=== PATIENT | female | born 1930 | race Caucasian/White ===

== ENCOUNTER 2016-12-08 09:38 | Observation (INO) | payer MEDICARE, BC ==
[2016-12-08] MEDS ORDERED: NS 0.9% 1000 ML* 1,000 ML IV SCH (10:30)
[2016-12-08 10:58] LABS: Urine Bacteria Absent (Absent); Urine Bilirubin Negative (Negative); Urine Glucose Negative (Negative); Urine Nitrite Negative (Negative)
[2016-12-08 11:08] LABS: Hematocrit 40 % (35-47); Hemoglobin 13.8 g/dl (12.0-16.0); Mean Corpuscular HGB Conc 35 g/dl (31-36); Mean Corpuscular Hemoglobin 31 pg (27-31); Mean Corpuscular Volume 91 fL (80-97); Mean Platelet Volume 7 um3 (7.4-10.4); Red Blood Count 4.41 10^6/ul (4.0-5.4); Red Cell Distribution Width 13 % (10.5-15); White Blood Count 5.2 10^3/ul (3.5-10.8)
[2016-12-08 11:25] LABS: Albumin 4.3 g/dL (3.2-5.2); BUN/Creatinine Ratio 16.7 (8-20); C Reactive Protein 7.51 mg/L (< 5.00); Calcium 9.6 mg/dL (8.6-10.3); EGFR African American 122.8 (>60); EGFR Non-African American 95.5 (>60); Globulin 3.9 g/dL (2-4); Magnesium 1.9 mg/dL (1.9-2.7); Potassium 3.4 mmol/L (3.5-5.0); Total Bilirubin 0.6 mg/dL (0.2-1.0); Total Protein 8.2 g/dL (6.4-8.9)
--- NOTE | 2016-12-08 11:27 | RAD ---
Indication: Syncope. Single frontal view of the chest performed at 1048 hours was reviewed. Comparison is made with previous exam dated August 17, 2015. No mediastinal shift is noted. Heart is of normal size and configuration. Lung burris appear clear. IMPRESSION: NO ACTIVE CARDIOPULMONARY DISEASE IS NOTED.
[2016-12-08 11:30] LABS: Troponin I 0.06 ng/mL (<0.04)
[2016-12-08 11:57] LABS: TSH (Thyroid Stimulating Horm) 3.11 mcIU/mL (0.34-5.60)
[2016-12-08] MEDS ORDERED: Magnesium Sulfate 2 GM IV* 2 GM/50 ML BAG IVPB ONE (11:59)
[2016-12-08] MEDS ORDERED: Potassium Chlor TAB* 20 MEQ TAB.ER PO ONE (12:00)
[2016-12-08] MEDS ORDERED: Amiodarone TAB* 200 MG PO ONE ×2 (12:00→16:19)
[2016-12-08] MEDS ORDERED: Metoprolol Tartrate IV* 1 MG/ML 5 ML VIAL IV ONE ×2 (12:01→13:33)
[2016-12-08] MEDS ORDERED: Metoprolol Tartrate IV* 1 MG/ML 5 ML VIAL IV PRN ×2 (13:16→13:25)
[2016-12-08] MEDS ORDERED: Apixaban* 2.5 MG TAB PO SCH (13:22)
[2016-12-08] MEDS ORDERED: Acetaminophen TAB* 325 MG PO PRN (13:28)
[2016-12-08] MEDS ORDERED: Midazolam* 1 MG/ML 5 ML VIAL (5 MG) ONE (14:38)
[2016-12-08] MEDS ORDERED: fentaNYL* 50 MCG/ML 2 ML VIAL (100 MCG VIAL) ONE (14:38)
[2016-12-08] MEDS ORDERED: Naloxone* 0.4 MG/ML 1 ML VIAL ONE (14:38)
[2016-12-08] MEDS ORDERED: Flumazenil* 0.1 MG/ML 5 ML MDV ONE (14:39)
[2016-12-08] MEDS ORDERED: Metoprolol Tartrate IV* 1 MG/ML 5 ML VIAL ONE (14:54)
--- NOTE | 2016-12-08 16:28 | PN ---
Hospitalist Progress Note Talked with Dr Gordon after Cardioversion, patient back in Sinus bradycardia. Metoprolol stopped, Amiodarone should be increased to 200mg daily for the next few days. Eliquis dose given late, next dose scheduled for 0000 on 12/09. Resume BID dosing after that. K+ 20meq TID started to maintain potassium level. Heart Healthy diet no caffeine started. Echocardiogram scheduled.
--- NOTE | 2016-12-08 17:17 | HP ---
CC: Dr. Odom; Rober Jon MD * HISTORY AND PHYSICAL: DATE OF ADMISSION: 12/08/16 PRIMARY CARE DOCTOR: Dr. Odom. ATTENDING PHYSICIAN WHILE IN THE HOSPITAL: Federica Johnson DO * (DICTATED BY JAMAR HANCOCK) CHIEF COMPLAINT: Syncope this morning. HISTORY OF PRESENT ILLNESS: Ms. Brown is an 85-year-old female with past medical history significant for paroxysmal AFib for the last 8 to 9 years, past history of hypertension and hyponatremia who presents today after last night she felt like her heart rate about doubled and she was having a palpitation sensation, which was consistent with previous episodes of AFib. Patient decided she would give a chance to convert back as it had previously without intervention. Patient went to bed around midnight and woke up in the middle of the night to used the restroom as she usually does and felt dizzy. Patient got up later again and got up out of bed and was able to walk for a significant distance, but while she was in the bathroom, she fell down. Patient remembers falling and denies any loss of consciousness or any trauma. Patient's niece was there at the time. She did not witness the fall, but she heard it and denies any sounds consistent with her having hit her head. Patient was, according to the niece, unresponsive for a while, but the patient denies any loss of consciousness again and was able to get back up, but still felt dizzy. Patient denies chest pain or shortness of breath. Patient denies any recent illnesses or sick contacts. Patient denies any decrease in her urine output or fluid intake. Patient takes amiodarone 100 mg p.o. daily and Eliquis 2.5 mg b.i.d. for her AFib, rhythm control and anticoagulation. Patient states that she had some decrease in exercise tolerance. The patient mainly attributes this to her worsening osteoarthritis in her left hip. The patient states that her left leg often swells up. Denies any swelling in the left leg or any redness of the lower extremities or pain. The patient states she has lost about 5 pounds recently. Denies any easy bruising or generalized fatigue. The patient states that she has always had trouble breathing while lying flat and this has not gotten worse and that she gets up to urinate about 2 times at night. Patient states she has not taken any of her medications this morning. Patient states she drinks on a normal day about 4 ounces of juice, 2 cups of half-caff coffee and 1 Boost every day. Patient denies drinking water due to a past history of hyponatremia. Patient denies any history of heart attacks or strokes. Patient took none of her home medications today. PAST MEDICAL HISTORY: Paroxysmal AFib, anxiety, and a previous history of hypertension, hypothyroidism and hyponatremia, osteoarthritis. PAST SURGICAL HISTORY: Cataract removal and appendectomy. MEDICATIONS: 1. Sertraline 50 mg p.o. daily. 2. Zyrtec 10 mg p.o. daily. 3. Ascorbic acid 500 mg p.o. daily. 4. Eliquis 2.5 mg b.i.d. 5. Amiodarone 100 mg p.o. daily. 6. Tylenol 500 mg q.6 hours. ALLERGIES: Patient is allergic to CODEINE and PENICILLIN. FAMILY HISTORY: Patient's brother had CHF. Patient's sister had lymphoma. Patient's mother had lung cancer and patient's grandmother had oral cancer. SOCIAL HISTORY: Patient smoked briefly 60 years ago. Patient drinks alcohol rarely. Patient has never tried any illicit drugs. 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 Patient was 10 years and is and has no children. REVIEW OF SYSTEMS: Patient denies fevers, chills, nausea, vomiting, abdominal pain, constipation, diarrhea, change in urine, hematuria, dysuria, cloudy urine , weakness, numbness or tingling of hands or feet, change in her vision, blood in her stool or any new rashes. PHYSICAL EXAMINATION GENERAL: Patient is an 85-year-old female who appears stated age, who is sitting in no acute distress on the ED stretcher. Patient appears to be moderately anxious. VITAL SIGNS: Blood pressure 134/86, heart rate 117, patient's heart rate frequently goes up to above 140s during this interview, respiratory rate 24, oxygen saturation 100% on room air, temperature 97. HEENT: Head, normocephalic, atraumatic. Sclerae anicteric. Pharynx nonerythematous. Mucous membranes moist. NECK: No carotid bruits auscultated. No JVD. No lymphadenopathy. Supple, nontender. RESPIRATORY: Clear to auscultation bilaterally. No wheezes, rales or rhonchi. Good air exchange bilaterally. HEART: Tachycardic, irregularly irregular. Radial pulses 2+ bilaterally. Posterior tibialis and dorsalis pedis pulses 1+ bilaterally. No edema noted in the lower extremities. ABDOMEN: Bowel sounds present and normoactive in all 4 quadrants. Nondistended , nontender to palpation. No hepatosplenomegaly. No abdominal bruits are auscultated. GENITOURINARY: Patient has slight suprapubic tenderness. No CVA tenderness. NEUROLOGIC: Cranial nerves II through XII intact. Moisture Meter Reader strength intact. Finger- to-nose performed without difficulty. SKIN: Patient has significant seborrheic keratoses all over her body. No other rashes noted. LABORATORY DATA: White blood cell count 5.2, hemoglobin 13.8, hematocrit 40, platelets 310,000. INR of 1.07. APTT 33.5. Sodium 134, potassium 3.4, chloride 97, carbon dioxide 31, anion gap 6, BUN 10, creatinine 0.6, glucose 117. Lactic acid 0.8. Troponin 0.06. CRP is 7.51. BNP is 338. TSH 3.31. Urine clear, blood +1, white blood cells +1, everything else negative. DIAGNOSTIC IMAGING: Electrocardiogram shows an irregularly irregular rhythm, rate of 120, no P waves appreciable but consistent with atrial fibrillation. No ST segment changes noted, consistent with previous exam when patient was in AFib. Chest x-ray read as no acute cardiopulmonary process. IMPRESSION: Patient is an 85-year-old female in relatively good health who passed out this morning due to recurrence of her paroxysmal atrial fibrillation , with the pulse rate up to 140. We will admit to telemetry overnight for rate control and possible cardioversion per Cardiology. Paroxysmal atrial fibrillation. Patient has atrial fibrillation with the pulse rates up to the 140s despite 5 mg metoprolol given in the emergency department for rate control. We will repeat one dose of 5 mg metoprolol IV and we will give a standing order for metoprolol q.6 hours for a heart rate above 110. Cardiology consulted. We will continue the patient's amiodarone, which they received in the emergency department and Cardiology will assess for cardioversion. The patient will be n.p.o. until that determination is made. Patient will be continued on home dose of Eliquis for anticoagulation. We will reorder CBC and BMP in the morning. We will order hemoglobin A1c and lipid profile for coronary artery disease risk. We will continue patient's home dose of amiodarone per Cardiology. Non-ST elevation myocardial infarction: Most likely represents demand ischemia. We will trend troponins and assess for cardiovascular risk factors. History of hypertension: Patient is normotensive at this time. We will monitor for hypotension from drugs designed for rhythm control. Osteoarthritis of the left hip: Tylenol 650 mg q.6 hours ordered for pain control. Patient is not eligible for other non-opiate medications due to cardiovascular risk factors and anticoagulation. Anxiety: Continue patient's home dose of sertraline. FEN: Patient is n.p.o. pending heater engineer helper consult. Patient will be started on 100 mL an hour of normal saline. We will continue to supplement potassium as needed. DVT prophylaxis: Patient is already fully anticoagulated on Eliquis. Code status: Full code. Patient's healthcare proxy is her niece, Vonnie Kramer. Disposition: Patient is admitted to telemetry observation. TIME SPENT: Approximately 60 minutes were spent on this admission, 30 minutes of which was spent [id number] with the patient obtaining history and physical. The plan has been discussed with my attending Dr. Federica Johnson and Dr. Solitario Gordon, heater engineer helper and they are in agreement. JAMAR HANCOCK [id number]/[facility] #: [id number] [place]
[2016-12-08] MEDS: Sertraline* 50 MG TAB PO SCH (17:30)
[2016-12-08] MEDS: NS 0.9% 1000 ML* 1,000 ML IV SCH (17:30)
--- NOTE | 2016-12-08 17:35 | ED ---
Valdemar Gonsalves Benjamin, scribed for Rock Olsen MD on 12/08/16 at 1153 . Syncope/Near Syncope - HPI Summary HPI Summary: 85yo female with hx of afib/aflutter reports having another afib episode yesterday evening around 530pm. Pt reports not having afib episode in a while. Pt also felt lightheaded and dizzy this morning and fell. Denies any injuries, denying any head, neck pain, CP, or SOB. Pt does have existing hip pain from arthritis. Pt takes amiodarone and blood thinner. Didnt take her amiodarone dose today as she takes them in the evening. Pt is feeling better now. - History Of Current Complaint Chief Complaint: EDSyncope Time Seen by Provider: 12/08/16 11:39 Hx Obtained From: Patient, Family/Welding [employer] - daughter Onset/Duration: Sudden Onset, Lasting Minutes, Resolved Timing: Intermittent Episode Lasting - minutes Context: Witnessed - by daughter Activity At Onset: At Rest Associated Head Trauma: No Aggravating Factor(s): Nothing Alleviating Factor(s): Spontaneous Resolution Associated Signs And Symptoms: Dizzy, Lightheadedness, Palpitations - afib since yesterday - Allergies/Home Medications Allergies/Adverse Reactions: Allergies Allergy/AdvReac Type Severity Reaction Status Date / Time Codeine Allergy Nausea Verified 12/08/16 10:29 Penicillins [PCN] Allergy Unknown Verified 12/08/16 10:30 Reaction Details PMH/Surg Hx/FS Hx/Imm Hx Endocrine/Hematology History: Reports: Hx Diabetes - BORDERLINE, Hx Thyroid Disease - Hx - no treatment at this time Cardiovascular History: Reports: Hx Coronary Artery Disease, Hx Hypercholesterolemia, Hx Hypertension, Hx Syncope - possibly in the past, this admission, Other Cardiovascular Problems/Disorders - "slight build up of plaque in carotid artery" Denies: Hx Auto Implanted Cardiovert Defib, Hx Cardiac Arrest, Hx Deep Vein Thrombosis, Hx Pacemaker/ICD Respiratory History: Reports: Hx Pneumonia GI History: Reports: Other GI Disorders - positive blood in stool pt reports she needs a colonoscopy Musculoskeletal History: Reports: Hx Arthritis - hands and hip Denies: Hx Back Problems Sensory History: Reports: Hx Contacts or Glasses Denies: Hx Cataracts - bilateral removal, Hx Hearing Aid, Hx Hearing Problem Opthamlomology History: Reports: Hx Contacts or Glasses Denies: Hx Cataracts - bilateral removal Psychiatric History: Reports: Hx Anxiety - Surgical History Surgery Procedure, Year, and Place: appendectomy. bilateral cataract removal Hx Anesthesia Reactions: No Infectious Disease History: No Infectious Disease History: Denies: Traveled Outside the [place] in Last 30 Days - Family History Known Family History: Positive: Cardiac Disease - CHF - Social History Occupation: Retired Lives: With Family Alcohol Use: Occasionally Substance Use Type: Reports: None Hx Tobacco Use: No Smoking Status (MU): Former Smoker Type: Cigarettes Have You Smoked in the Last Year: No Review of Systems Constitutional: Negative Eyes: Negative ENT: Negative Positive: Palpitations - afib. Negative: Chest Pain Respiratory: Negative Negative: Shortness Of Breath Gastrointestinal: Negative Negative: Abdominal Pain, Vomiting, Nausea Genitourinary: Negative Positive: no symptoms reported Positive: Arthralgia - chronic hip pain Skin: Negative Neurological: Other - dizziness Positive: Weakness, Syncope Psychological: Normal All Other Systems Reviewed And Are Negative: Yes Physical Exam Triage Information Reviewed: Yes Vital Signs On Initial Exam: Initial Vitals Temp Pulse Resp BP Pulse Ox 97.0 F 121 16 165/107 99 12/08/16 10:24 12/08/16 10:24 12/08/16 10:24 12/08/16 10:24 12/08/16 10:24 Vital Signs Reviewed: Yes Appearance: Positive: Well-Appearing, No Pain Distress - no acute distress, Well -Nourished Skin: Positive: Warm, Skin Color Reflects Adequate Perfusion, Dry Head/Face: Positive: Normal Head/Face Inspection Eyes: Positive: EOMI, POP ENT: Positive: Normal ENT inspection, Hearing grossly normal Neck: Positive: Supple, Nontender Respiratory/Lung Sounds: Positive: Clear to Auscultation, Breath Sounds Present Cardiovascular: Positive: Pulses are Symmetrical in both Upper and Lower Extremities, IRR, Tachycardia Abdomen Description: Positive: Nontender, Soft Bowel Sounds: Positive: Present Musculoskeletal: Positive: Strength/ROM Intact - hip in full rom, no tenderness. Negative: Edema Left, Edema Right Neurological: Positive: Sensory/Motor Intact, Alert, Oriented to Person Place, Time. Negative: Focal Deficit @ Psychiatric: Positive: Affect/Mood Appropriate - [place] Coma Scale Coma Scale Total: 15 Diagnostics - Vital Signs Vital Signs Temp Pulse Resp BP Pulse Ox 12/08/16 10:24 97.0 F 121 16 165/107 99 - Laboratory Lab Results: Lab Results 12/08/16 12/08/16 12/08/16 Range/Units 10:40 10:57 10:57 WBC (3.5-10.8) 10^3/ul RBC (4.0-5.4) 10^6/ul Hgb (12.0-16.0) g/dl Hct (35-47) % MCV (80-97) fL MCH (27-31) pg MCHC (31-36) g/dl RDW (10.5-15) % Plt Count (150-450) 10^3/ul MPV (7.4-10.4) um3 Neut % (Auto) (38-83) % Lymph % (Auto) (25-47) % [place] % (Auto) (1-9) % Eos % (Auto) (0-6) % Baso % (Auto) (0-2) % Absolute Neuts (auto) (1.5-7.7) 10^3/ul Absolute Lymphs (auto) (1.0-4.8) 10^3/ul Absolute Monos (auto) (0-0.8) 10^3/ul Absolute Eos (auto) (0-0.6) 10^3/ul Absolute Basos (auto) (0-0.2) 10^3/ul Absolute Nucleated RBC 10^3/ul Nucleated RBC % INR (Anticoag Therapy) 1.07 (0.89-1.11) APTT 33.5 (26.0-36.3) seconds Sodium (133-145) mmol/L Potassium (3.5-5.0) mmol/L Chloride (101-111) mmol/L Carbon Dioxide (22-32) mmol/L Anion Gap (2-11) mmol/L BUN (6-24) mg/dL Creatinine (0.51-0.95) mg/dL Est GFR ( Amer) (>60) Est GFR (Non-Af Amer) (>60) BUN/Creatinine Ratio (8-20) Glucose (70-100) mg/dL Lactic Acid (0.5-2.0) mmol/L Calcium (8.6-10.3) mg/dL Magnesium (1.9-2.7) mg/dL Total Bilirubin (0.2-1.0) mg/dL AST (13-39) U/L ALT (7-52) U/L Alkaline Phosphatase (34-104) U/L Total Creatine Kinase (10-223) U/L CK-MB (CK-2) (0.6-6.3) ng/mL Troponin I (<0.04) ng/mL C-Reactive Protein (< 5.00) mg/L B-Natriuretic Peptide 338 H ( - 100) pg/mL Total Protein (6.4-8.9) g/dL Albumin (3.2-5.2) g/dL Globulin (2-4) g/dL Albumin/Globulin Ratio (1-3) Lipase (11.0-82.0) U/L TSH Urine Color Straw Urine Appearance Clear Urine pH 8.0 (5-9) Ur Specific [place] 1.005 L (1.010-1.030) Urine Protein Negative (Negative) Urine Ketones Negative (Negative) Urine Blood 1+ H (Negative) Urine Nitrate Negative (Negative) Urine Bilirubin Negative (Negative) Urine Urobilinogen Negative (Negative) Ur Leukocyte Esterase Negative (Negative) Urine WBC (Auto) Absent (Absent) Urine RBC (Auto) 1+(3-5/hpf) H (Absent) Urine Bacteria Absent (Absent) Urine Glucose Negative (Negative) 12/08/16 12/08/16 12/08/16 Range/Units 10:57 10:57 10:57 WBC 5.2 (3.5-10.8) 10^3/ul RBC 4.41 (4.0-5.4) 10^6/ul Hgb 13.8 (12.0-16.0) g/dl Hct 40 (35-47) % MCV 91 (80-97) fL MCH 31 (27-31) pg MCHC 35 (31-36) g/dl RDW 13 (10.5-15) % Plt Count 310 (150-450) 10^3/ul MPV 7 L (7.4-10.4) um3 Neut % (Auto) 72.7 (38-83) % Lymph % (Auto) 14.6 L (25-47) % [place] % (Auto) 10.7 H (1-9) % Eos % (Auto) 0.6 (0-6) % Baso % (Auto) 1.4 (0-2) % Absolute Neuts (auto) 3.8 (1.5-7.7) 10^3/ul Absolute Lymphs (auto) 0.8 L (1.0-4.8) 10^3/ul Absolute Monos (auto) 0.6 (0-0.8) 10^3/ul Absolute Eos (auto) 0 (0-0.6) 10^3/ul Absolute Basos (auto) 0.1 (0-0.2) 10^3/ul Absolute Nucleated RBC 0.01 10^3/ul Nucleated RBC % 0.2 INR (Anticoag Therapy) (0.89-1.11) APTT (26.0-36.3) seconds Sodium 134 (133-145) mmol/L Potassium 3.4 L (3.5-5.0) mmol/L Chloride 97 L (101-111) mmol/L Carbon Dioxide 31 (22-32) mmol/L Anion Gap 6 (2-11) mmol/L BUN 10 (6-24) mg/dL Creatinine 0.60 (0.51-0.95) mg/dL Est GFR ( Amer) 122.8 (>60) Est GFR (Non-Af Amer) 95.5 (>60) BUN/Creatinine Ratio 16.7 (8-20) Glucose 117 H (70-100) mg/dL Lactic Acid 0.8 (0.5-2.0) mmol/L Calcium 9.6 (8.6-10.3) mg/dL Magnesium 1.9 (1.9-2.7) mg/dL Total Bilirubin 0.60 (0.2-1.0) mg/dL AST 19 (13-39) U/L ALT 12 (7-52) U/L Alkaline Phosphatase 83 (34-104) U/L Total Creatine Kinase 48 (10-223) U/L CK-MB (CK-2) 2.9 (0.6-6.3) ng/mL Troponin I 0.06 H* (<0.04) ng/mL C-Reactive Protein 7.51 H (< 5.00) mg/L B-Natriuretic Peptide ( - 100) pg/mL Total Protein 8.2 (6.4-8.9) g/dL Albumin 4.3 (3.2-5.2) g/dL Globulin 3.9 (2-4) g/dL Albumin/Globulin Ratio 1.1 (1-3) Lipase 43 (11.0-82.0) U/L TSH Pending Urine Color Urine Appearance Urine pH (5-9) Ur Specific Harmon (1.010-1.030) Urine Protein (Negative) Urine Ketones (Negative) Urine Blood (Negative) Urine Nitrate (Negative) Urine Bilirubin (Negative) Urine Urobilinogen (Negative) Ur Leukocyte Esterase (Negative) Urine WBC (Auto) (Absent) Urine RBC (Auto) (Absent) Urine Bacteria (Absent) Urine Glucose (Negative) Result Diagrams: 12/08/16 10:57 12/08/16 10:57 Lab Statement: Any lab studies that have been ordered have been reviewed, and results considered in the medical decision making process. - EKG 1054. Cardiac Rate: Tachycardia - 120bpm EKG Rhythm: Atrial Fibrillation ST Segment: : Normal - ST depression in inferior leads EKG Interpretation: RBBB EKG Comparison: No Significant Change - similar to her EKG at 08/17/15. Course/Dx Course Of Treatment: Reviewed pts medication and allergy lists. High blood pressure noted. Discussed with Dr. Johnson (hospitalist) at 11:56. ADMIT HOSPITALIST. NO CRITICAL CARE TIME. - Diagnoses Provider Diagnoses: Syncope, Rapid atrial fibrillation Discharge - Discharge Plan Condition: Stable Disposition: ADMITTED TO [facility] documentation as recorded by the Valdemar johnson Benjamin accurately reflects the service I personally performed and the decisions made by me, Rock Olsen MD.
[2016-12-08] MEDS: Potassium Chlor TAB* 20 MEQ TAB.ER PO SCH ×2 (17:58→21:32)
[2016-12-08] MEDS ORDERED: Amiodarone TAB* 200 MG PO SCH (18:00)
--- NOTE | 2016-12-08 18:06 | CONS ---
CC: Dr. Galeano CARDIOLOGY CONSULTATION: DATE OF CONSULTATION: 12/08/16 PATIENT OF: Dr. Galeano. REASON FOR EVALUATION: AFib. HISTORY OF PRESENT ILLNESS: This is a very pleasant 85-year-old woman who has a longstanding histor y of paroxysmal atrial fibrillation, hypertension. She said that she has had multiple episodes over the last 8 or 10 years of AFib, several of which converted spontaneously. She did require a cardio version in August 2015. At that time, had a BRENDA-guided cardioversion, was started on anticoagulation. She also was on amiodarone 100 mg a day at that time. She was doing fairly well, living with her n iece and driving. She is limited by arthritis but has had no chest pain or palpitations until last night. She said that she was sitting watching television and noticed that her heart started racing. There was no associated chest pain, syncope or near syncope. She said that she felt the need to u rinate several times over the course of the evening. She went about 3 times. On the third time ear ly this morning, she went to the bathroom and felt a little lightheaded when she got up out of the b athroom to go back to bed, she apparently collapsed to the floor briefly and her niece decided to ca ll 911. She was brought in. She was found to be in atrial fibrillation with a rapid ventricular re sponse in the 130s to 140s. She said that she is aware of her heart beating quickly now but has no shortness of breath, chest pain, or lightheadedness. She has had no previous MIs or CVAs. Accordin g to her, she has a history of hypertension, paroxysmal atrial fibrillation, and borderline glucose. An old report from 08/17/16 suggested that she also had diabetes and dyslipidemia. PAST MEDICAL HISTORY: Also includes osteoarthritis. She denies tobacco use. She has a history of a nose fracture. PAST SURGICAL HISTORY: Includes appendectomy many years ago. MEDICATIONS: Her current medications include: 1. Amiodarone 100 mg a day. 2. Benicar 20 mg one half tablet a day. 3. Nifedipine 30 mg a day. 4. Aspirin 81 mg a day. 5. Zyrtec 10 mg a day. 6. Naprosyn p.r.n. 7. Eliquis 2.5 mg b.i.d. 8. Sertraline 50 mg a day. 9. Acetaminophen 500 mg p.o. q.6 p.r.n. 10. Multivitamin with minerals 1 a day. ALLERGIES: Include DUST and PERFUME but no drug allergies. SOCIAL HISTORY: She reports rare alcohol use and drinks 2 cups of half caffeinated coffee a day. S he lives with her niece. She was , but her has since . She has no children. H er brother of CHF at 89. She has a sister. 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 REVIEW OF SYSTEMS: Times 10 was negative except as above. PHYSICAL EXAMINATION: On physical exam, she is a well-developed, well-nourished female, in no appar ent distress. Blood pressure 147/100, heart rate of 129 and irregular, O2 sat is 99% on room air. No significant JVD. Carotids are 2+. Cardiac Exam: S1, S2, tachycardic with a 1-2/6 holosystolic m urmur at the left lower sternal border. Chest was clear. No CVAT. Abdomen: Bowel sounds are pres ent. Nontender. Femoral pulses intact without bruits. Distal pulses intact. No edema. Motor stre ngth is 5/5 bilaterally. Deep tendon reflexes 2/4. Alert and oriented x3. LABORATORY DATA/DIAGNOSTIC STUDIES: Laboratories include white count of 5.2, hemoglobin of 13.8, he matocrit of 40, and platelet count of 310,000. Sodium 134, potassium low at 3.4, chloride 97, BUN o f 10, creatinine of 0.6, glucose of 117. Troponin minimally elevated at 0.06. CRP elevated at 7.51. BNP elevated at 338. Cholesterol 221, LDL of 139, HDL of 64. TSH of 3.11. Chest x-ray, no active cardiopulmonary disease. EKG appears to be atrial fib or atrial flutter with a rapid ventricular response in the 120s, right bundle-branch block, and nonspecific ST-T changes, similar to previous EKG on 08/17/15 when she was in atrial fib or atrial flutter with a rapid ventri cular response. IMPRESSION: My impression is that Mrs. Brown has recurrent paroxysmal atrial arrhythmias, history o f hypertension, borderline diabetes, elevated cholesterol, and minimally elevated troponin in the se tting of a relatively low potassium. I did discuss her options with her and for the time being, I have recommended the following. Since she is already anticoagulated and has not had anything to eat since 8 p.m. last night, I sugge sted that we proceed with cardioversion. We would use IV Lopressor 5 mg IV now and p.r.n. to try to control her rate. We would replace her potassium as we are doing. We will follow serial troponins and EKGs. We will consider obtaining a repeat echo to reassess her LV function. The minimal elevation in troponin may be related to the tachycardia and demand ischemia. We will de monik further evaluation for ischemic heart disease until we see her clinical course and the trend of her troponins. She is to follow up with Dr. Galeano as an outpatient. I asked her to discontinue caffeine use. We will temporarily increase amiodarone to 200 mg a day. Consider adding a low-dose beta-ariela for rate control. The etiology of her syncope is unclear. She may benefit from an event monitor to see if she has tachybrady syndrome or perhaps pauses when s he goes in and out of atrial fibrillation. [id number]/[facility] #: [id number]
[2016-12-09] MEDS ORDERED: Apixaban* 2.5 MG TAB PO ONE
[2016-12-09] MEDS: NS 0.9% 1000 ML* 1,000 ML IV SCH (04:45)
[2016-12-09 05:24] LABS: Hematocrit 31 % (35-47); Hemoglobin 10.7 g/dl (12.0-16.0); Mean Corpuscular HGB Conc 35 g/dl (31-36); Mean Corpuscular Hemoglobin 31 pg (27-31); Mean Corpuscular Volume 90 fL (80-97); Mean Platelet Volume 8 um3 (7.4-10.4); Red Blood Count 3.45 10^6/ul (4.0-5.4); Red Cell Distribution Width 13 % (10.5-15); White Blood Count 6.3 10^3/ul (3.5-10.8)
[2016-12-09 05:32] LABS: BUN/Creatinine Ratio 24.1 (8-20); EGFR African American 127.7 (>60); EGFR Non-African American 99.3 (>60)
[2016-12-09] MEDS: Potassium Chlor TAB* 20 MEQ TAB.ER PO SCH ×2 (08:47→14:04)
[2016-12-09] MEDS: Sertraline* 50 MG TAB PO SCH (08:47)
[2016-12-09] MEDS ORDERED: Apixaban* 2.5 MG TAB PO SCH (09:00)
[2016-12-09] MEDS ORDERED: Amiodarone TAB* 200 MG PO SCH (09:00)
[2016-12-09] MEDS ORDERED: Influenza VAC *QUAD* 2017-18* 0.5 ML SYRINGE IM ONE (09:00)
[2016-12-09] MEDS ORDERED: Cetirizine* 10 MG TAB PO SCH (09:00)
--- NOTE | 2016-12-09 11:37 | ECHO ---
Patient: SOCRATES PAREDES [facility] Rec#: [id number] : 1930 Date: 12/09/2016 Age: 85y Height: 165.1 cm / 65.0 in Weight: 58.06 kg / 128.0 lbs Sex: F BSA: 1.64 Room#: 433 Admit Date#: 12/08/2016 Type: Inpatient Referring: Rock Hernandez MD Reading: Edis Varela MD Engineer Station Mainline: Adrienne Chowdary,CHARUCS,RDMS CC: Franny Odom MD CC: Jeremie Galeano MD Transthoracic Echocardiogram Indication: AFIB BP: 175/76 HR: 66 Rhythm: NSR Findings History: AFIB, HTN, HLD Technical Comments: The study quality is good. Completed 1100 Left Ventricle: The left ventricular chamber size is normal. There is a prominent septal knuckle. The estimated ejection fraction is 55-60%. There is no consistent Doppler evidence of clinically significant diastolic dysfunction. Left Atrium: The left atrium is moderately dilated. Right Ventricle: The right ventricular chamber size and systolic function are within normal limits. Right Atrium: The right atrium is mildly dilated. Aortic Valve: The aortic valve is trileaflet. The aortic valve leaflets are mildly thickened. Systolic excursion of the aortic valve is normal. There is a trace of aortic regurgitation. There is no evidence of aortic stenosis. Mitral Valve: There is mitral annular calcification. The mitral valve leaflets are mildly thickened. There is mild to moderate mitral regurgitation. There is no evidence of mitral stenosis. Tricuspid Valve: The tricuspid valve leaflets are normal. There is trace tricuspid regurgitation. No pulmonary hypertension is noted. Pulmonic Valve: There is no evidence of pulmonic valve thickening. There is a trace pulmonic regurgitation. Pericardium: There is no significant pericardial effusion. Aorta: The aortic root appears normal. There is no dilatation of the aortic arch. Pulmonary Artery: The main pulmonary artery is not well visualized. Venous: The inferior vena cava appears normal in size. There is an approximate 50% respiratory change in the inferior vena cava dimension. Summary: There are changes noted when compared to the previous study done on BRENDA done 08/18/2015, MR is now mild-moderate instead of mild then, otherwise no overt sig changes. Conclusions The left ventricular chamber size is normal. The estimated ejection fraction is 55-60%. The left atrium is moderately dilated. The right atrium is mildly dilated. There is a trace of aortic regurgitation. There is mild to moderate mitral regurgitation. There is trace tricuspid regurgitation. There is a trace pulmonic regurgitation. There are changes noted when compared to the previous study done on BRENDA done 08/18/2015, MR is now mild-moderate instead of mild then, otherwise no overt sig changes. Measurements Name Value Normal Range RVIDd (AP) 2D 2.7 cm (0.9 - 2.6) RVDdMajor (2D) 3.1 cm (2.2 - 4.4) RAd ISD 4CH 5.4 cm (3.4 - 4.9) RA (A4C)W 4 cm (2.9 - 4.6) IVSd (2D) 1.1 cm (0.6 - 1) LVPWd (2D) 0.8 cm (0.6 - 1) LVIDd (2D) 4.6 cm (3.6 - 5.4) LVIDs (2D) 3 cm - LV FS (2D) 35 % (25 - 45) Aortic Annulus 2 cm (1.4 - 2.6) Ao root diameter (2D) 2.9 cm (2.1 - 3.5) Ascending Ao 2.8 cm (2.1 - 3.4) Aortic arch 2.7 cm (1.8 - 3.4) LA dimension (AP) 2D 4.3 cm (2.3 - 3.8) LAd ISD 4CH 5.8 cm (2.9 - 5.3) LA ISD 4CH W 5 cm (2.5 - 4.5) Name Value Normal Range LA ESV SP 4CH (A/L) 72.52 ml - LA ESV SP 2CH (A/L) 79.08 ml - LA ESV BP (A/L) 77.77 ml - LA ESV BP (A/L) index 47.4 ml/m2 - LA ESV SP 4CH (MOD) 67.74 ml - LA ESV SP 2CH (MOD) 74.7 ml - Name Value Normal Range MV E-wave Vmax 0.9 m/sec - MV deceleration time 195 msec - MV A-wave Vmax 0.3 m/sec - MV E:A ratio 3 ratio - LV septal e' Vmax 0.05 m/sec - LV lateral e' Vmax 0.08 m/sec - LV E:e' septal ratio 18 ratio - LV E:e' lateral ratio 11.3 ratio - Name Value Normal Range AV Vmax 1.5 m/sec - AV VTI 32.5 cm - AV peak gradient 9 mmHg - AV mean gradient 4.4 mmHg - LVOT Vmax 1 m/sec - LVOT VTI 22 cm - LVOT peak gradient 4 mmHg - LVOT mean gradient 2 mmHg - DESIREE Vmax 0.5 m/sec - Name Value Normal Range MR Vmax 5.9 m/sec - MR VTI 221 cm - MR volume (PISA) 30 ml - MR flow (PISA) 80.01 ml/sec - MR ERO 1.3 cm2 - MR PISA radius 0.6 cm - MR alias Vmax 35 cm/sec - Name Value Normal Range TR Vmax 2.7 m/sec - TR peak gradient 29 mmHg - RAP 3 mmHg - RVSP 32 mmHg - IVC diameter 2 cm - Name Value Normal Range PV Vmax 0.8 m/sec - PV peak gradient 2.6 mmHg -
[2016-12-09 11:49] VITALS: BP 169/74
--- NOTE | 2016-12-09 14:13 | RAD ---
INDICATION: Syncope COMPARISON: CT brain June 20, 2012 TECHNIQUE: Noncontrast axial source images were acquired from the skull base to the vertex. FINDINGS: Ventricles/sulci: The ventricles and cisterns are normal in size and configuration for age. Brain parenchyma: There is no acute focal parenchymal finding, evidence of intracranial mass, or intracranial mass effect. Intracranial hemorrhage:None. Extra-axial spaces: There are no abnormal extra axial fluid collections or evidence of extra-axial mass. Calvarium: There is no calvarial fracture or other calvarial abnormality. Scalp: There is no evidence of scalp or extracalvarial soft tissue abnormality. Paranasal sinuses/mastoid: The paranasal sinuses and mastoid air cells are clear. Other: None. IMPRESSION: No acute intracranial findings.
--- NOTE | 2016-12-09 16:41 | PRO ---
CC: Dr. Galeano; Dr. Odom * CARDIOLOGY PROCEDURE NOTE: DATE OF PROCEDURE: 12/08/16 - ROOM #433 PROCEDURE: Cardioversion. INDICATIONS: This is a very pleasant 85-year-old woman with a history of paroxysmal atrial fibrillation with less than 24 hours of symptoms consistent with recurrent atrial fibrillation. She was found to be in rapid ventricular response on admission. Attempt was made to control her rate with IV metoprolol. She has been taking Eliquis 2.5 mg b.i.d. Her last dose was at 10 p.m. on 12/06/16. She inadvertently skipped the a.m. dose at 10 a.m. on 12/08/16. She was n.p.o. Informed consent was obtained. The risk of cardioembolic events and arrhythmias were discussed and the plan was as follows: Given that she is only delayed her dose by a few hours, we gave her Eliquis 2.5 mg prior to cardioversion. We also gave her potassium because of hypokalemia prior to the procedure. DESCRIPTION OF PROCEDURE: Informed consent was obtained. In the fasting state , she was given 2 mg of Versed and 25 mcg of fentanyl. A single synchronized biphasic shock was applied with successful conversion from atrial fibrillation to sinus bradycardia in the 50s. IMPRESSION: Successful conversion from atrial fibrillation to sinus bradycardia. PLAN: The plan is as follows. I suggest she increase her amiodarone to 200 mg a day for next 5 days from 100 mg a day. Given her resting bradycardia, it may not be possible to add a rate control agent at this point. She is to follow up with Dr. Galeano as an outpatient for consideration of adjustment of her medications as well as possibility of a Linq recorder to evaluate for tachy- sam syndrome in light of her new syncopal episode or syncopal episode the night prior to admission. She is to continue on potassium and avoid hypokalemia. She is to continue anticoagulation indefinitely. [id number]/[facility] #: [id number] GAR[facility] HEALTHHoda
--- NOTE | 2016-12-10 07:43 | DS ---
CC: Dr. Odom; Dr. Galeano; Dr. Gordon * DISCHARGE SUMMARY: DATE OF ADMISSION: 12/08/16 DATE OF DISCHARGE: 12/09/16 PRIMARY CARE PROVIDER: Dr. Odom OPTOMETRY ASSISTANT: Dr. Galeano CONSULTING OPTOMETRY ASSISTANT: Dr. Gordon DISCHARGE DIAGNOSES: 1. Syncopal episode, likely secondary to atrial fibrillation. 2. Atrial fibrillation with rapid ventricular rate. 3. Elevated troponins, likely secondary to demand ischemia associated with atrial fibrillation. 4. Mild hypokalemia. SECONDARY DIAGNOSES: 1. Paroxysmal atrial fibrillation. 2. Hypertension. 3. Anxiety. 4. Hypothyroidism. 5. Hyponatremia. 6. Osteoarthritis. MEDICATION LIST: 1. Acetaminophen 500 mg p.o. q.6 hours p.r.n. pain or fever. 2. Multivitamin 1 tablet p.o. daily. 3. Sertraline 50 mg p.o. daily. 4. Cetirizine 10 mg p.o. daily. 5. Apixaban 2.5 mg p.o. b.i.d. New medications: Potassium chloride 20 mEq p.o. daily. Medication change: Amiodarone was increased from 100 to 200 mg p.o. daily. HOSPITAL COURSE: Mrs. Brown is an 85-year-old lady with a past medical history as stated above that presented to the emergency room with complaints of palpitations. She states in the middle of the night, she woke up to use the rest room as she usually does and felt dizzy. She woke up multiple times overnight and the last time she fell down and it is unclear if she truly lost consciousness at the time. In any case, she came to the emergency room for further evaluation and she was found to be in atrial fibrillation with rapid ventricular rate of 120 beats per minute. She was admitted for further evaluation and she was seen in consultation by Cardiology (Dr. Gordon). His recommendation was for a BRENDA cardioversion that was performed in December 08. He recommended repleting her potassium and to have an echo to reassess her LV function. He felt that her minimal elevation in troponin was related to tachycardia and demand ischemia, and he deferred further evaluation for ischemic heart disease when she follows with Dr. Galeano as an outpatient. He strongly encouraged her to discontinue caffeine use. His recommendation was for temporarily increase her amiodarone to 200 mg a day, then she will follow up with Dr. Galeano as outpatient, and then consideration could be given to a low-dose beta- ariela for rate control. He felt that the etiology of her syncopal episode was unclear and that she would benefit from an event monitor as outpatient to see if perhaps she has tachy-sam syndrome or pauses when she goes in and out of atrial fibrillation. The patient did well after cardioversion, remained in sinus rhythm with the heart rate in the 60 to 70s. A transthoracic echocardiogram showed ejection fraction of 55% to 60% with a left atrium that is moderately dilated, [id number] MR, trace TR, and when compared to her prior echo from August 2015, the MR now is [id number] instead of just mild like then. As the patient had a syncopal episode and she is on anticoagulation as outpatient, she had a CT of the brain, showed no acute intracranial findings. Also, the patient had a normal TSH of 3.1. The patient is medically stable to be discharged home today. She will follow up with Dr. Odom and Dr. Galeano as outpatient. PHYSICAL EXAMINATION: Vital Signs: Temperature 98.6, heart rate 68, respiratory rate 18, oxygen saturation 98% on room air, and blood pressure 159/ 74. General: The patient is a pleasant elderly lady, sitting up in a chair, in no acute distress. CVS: Normal S1, S2. Regular rate and rhythm. Chest: Breath sounds present bilaterally with no added sounds. Abdomen: Soft. Bowel sounds present. Neuro: Alert and oriented x3. Able to move all 4 extremities. DIET: Heart-healthy diet. The patient was advised to avoid caffeine. ACTIVITY: As tolerated. DISPOSITION: To home. STATUS WHILE IN THE HOSPITAL: Observation. Please keep in mind this is a summarized version of this patient's hospital stay. If you need more information, please feel free to call me at [phone] or please obtain the full medical records. TIME SPENT: Approximately 45 minutes was spent to complete the discharge. [id number]/[facility] #: [id number] MTDD
== END 2016-12-09 16:20 | disposition home or self-care (01) ==
LOC: ED 09:38 → MEDTELE 12:30
PROVIDERS: ADMIT Hospitalist; ATTEND Internal Medicine
DX: R55 Syncope and collapse (principal); I48.91 Unspecified atrial fibrillation; R74.8 Abnormal levels of other serum enzymes; I24.8 Other forms of acute ischemic heart disease; I10 Essential (primary) hypertension; E03.9 Hypothyroidism, unspecified; E87.1 Hypo-osmolality and hyponatremia; I34.0 Nonrheumatic mitral (valve) insufficiency; E87.6 Hypokalemia; R42 Dizziness and giddiness; Z79.899 Other long term (current) drug therapy; Z23 Encounter for immunization
CPT/HCPCS: 36415; 70450; 71010; 80048; 80053; 80061; 81003; 81015; 82550; 82553; 83036; 83605; 83690; 83735; 83880; 84443; 84484; 85025; 85610; 85730; 86140; 90471; 90686; 92960; 93005; 93306; 96361; 96374; 99156; 99283; A9270-GY; G0008; G0378; J2250; J2310; J3010; J3475

== ENCOUNTER 2017-01-21 17:36 | Observation (INO) | payer MEDICARE, BC ==
[2017-01-21] MEDS ORDERED: Diltiazem IV* 5 MG/ML 5 ML VIAL (for loading dose/IV Push) (25 MG) IV PUSH ONE (19:44)
[2017-01-21 20:31] LABS: Hematocrit 38 % (35-47); Hemoglobin 13.2 g/dl (12.0-16.0); Mean Corpuscular HGB Conc 35 g/dl (31-36); Mean Corpuscular Hemoglobin 32 pg (27-31); Mean Corpuscular Volume 90 fL (80-97); Mean Platelet Volume 8 um3 (7.4-10.4); Red Cell Distribution Width 13 % (10.5-15)
--- NOTE | 2017-01-21 20:44 | RAD ---
INDICATION: Possible atrial fibrillation COMPARISON: Chest x-ray dated December 08, 2016 TECHNIQUE: Single AP portable view of the chest was obtained. FINDINGS: Image quality is compromised due to the relative inferiority of a portable chest x-ray. The heart and mediastinum exhibit normal size and contour. The lungs are grossly clear. There is no evidence of a large pleural effusion. Visualized bones are normal for the patient's age. IMPRESSION: No radiographic evidence for acute cardiopulmonary abnormality on this portable chest x-ray.
[2017-01-21 20:47] LABS: ALT 15 U/L (7-52); Alkaline Phosphatase 71 U/L (34-104); BUN/Creatinine Ratio 21.7 (8-20); Blood Urea Nitrogen 18 mg/dL (6-24); CO2 Carbon Dioxide 28 mmol/L (22-32); Calcium 9.4 mg/dL (8.6-10.3); Chloride 94 mmol/L (101-111); EGFR African American 84.2 (>60); EGFR Non-African American 65.5 (>60); Globulin 3.6 g/dL (2-4); Glucose 101 mg/dL (70-100); Sodium 128 mmol/L (133-145); Total Protein 7.6 g/dL (6.4-8.9)
[2017-01-21 20:51] LABS: Troponin I 0.02 ng/mL (<0.04)
[2017-01-21 20:55] LABS: Anion Gap 6 mmol/L (2-11)
[2017-01-21 21:15] LABS: TSH (Thyroid Stimulating Horm) 3.35 mcIU/mL (0.34-5.60)
[2017-01-21 21:23] LABS: Magnesium 1.9 mg/dL (1.9-2.7)
[2017-01-21] MEDS ORDERED: Diltiazem DRIP* 100 MG/100 ML ADDV.BAG IVPB ONE (22:44)
[2017-01-21] MEDS ORDERED: Metoprolol Tartrate IV* 1 MG/ML 5 ML VIAL IV ONE (22:48)
--- NOTE | 2017-01-22 00:11 | ED ---
Jeannette Gonsalves Edward, scribed for Ollie Chino on 01/21/17 at 1910 . Palpitations / Dysrhythmia - HPI Summary HPI Summary: 86 y/o female presents to the ED c/o sudden onset palpitations described as the return of her AFib starting last night at 20:00. Denies CP, SOB and pedal edema. The pt c/o dizziness aggravated when she stands up. Pt states she did some heavy lifting yesterday. States she had an admission at this facility one month ago and was cardioverted. States she takes Eliquis for her A-fib. Pt's HR is currently at around 120 at first visit. PMHx AFIB. - History of Current Complaint Chief Complaint: EDDysrhythmPalp Hx Obtained From: Patient Onset/Duration: Sudden Onset, Lasting Hours - Last night @ 20:00 Character: Fast Aggravating: Exertion - dizziness Associated Signs & Symptoms: Dizzy - Allergy/Home Medications Allergies/Adverse Reactions: Allergies Allergy/AdvReac Type Severity Reaction Status Date / Time No Known Drug Allergy Allergy Unknown Verified 12/08/16 22:48 Reaction Details PMH/Surg Hx/FS Hx/Imm Hx Previously Healthy: No Endocrine/Hematology History: Reports: Hx Diabetes - BORDERLINE, Hx Thyroid Disease - Hx - no treatment at this time Cardiovascular History: Reports: Hx Coronary Artery Disease, Hx Hypercholesterolemia, Hx Hypertension, Hx Syncope - possibly in the past, this admission, Other Cardiovascular Problems/Disorders - "slight build up of plaque in carotid artery" Denies: Hx Auto Implanted Cardiovert Defib, Hx Cardiac Arrest, Hx Deep Vein Thrombosis, Hx Pacemaker/ICD Respiratory History: Reports: Hx Pneumonia GI History: Reports: Other GI Disorders - positive blood in stool pt reports she needs a colonoscopy Musculoskeletal History: Reports: Hx Arthritis - hands and hip Denies: Hx Back Problems Sensory History: Reports: Hx Contacts or Glasses Denies: Hx Cataracts - bilateral removal, Hx Hearing Aid, Hx Hearing Problem Opthamlomology History: Reports: Hx Contacts or Glasses Denies: Hx Cataracts - bilateral removal Psychiatric History: Reports: Hx Anxiety - Surgical History Surgery Procedure, Year, and Place: appendectomy. bilateral cataract removal Hx Anesthesia Reactions: No Infectious Disease History: No Infectious Disease History: Denies: Traveled Outside the [place] in Last 30 Days - Family History Known Family History: Positive: Cardiac Disease - CHF - Social History Alcohol Use: Occasionally Hx Substance Use: No Substance Use Type: Reports: None Hx Tobacco Use: No Smoking Status (MU): Former Smoker Type: Cigarettes Have You Smoked in the Last Year: No Review of Systems Constitutional: Negative Eyes: Negative ENT: Negative Positive: Palpitations Respiratory: Negative Gastrointestinal: Negative Genitourinary: Negative Musculoskeletal: Negative Skin: Negative Neurological: Other - dizziness Psychological: Normal All Other Systems Reviewed And Are Negative: Yes Physical Exam Triage Information Reviewed: Yes Vital Signs On Initial Exam: Initial Vitals Temp Pulse Resp BP Pulse Ox 98.1 F 120 15 116/78 98 01/21/17 17:38 01/21/17 17:38 01/21/17 17:38 01/21/17 17:38 01/21/17 17:38 Vital Signs Reviewed: Yes Appearance: Positive: Well-Appearing, No Pain Distress Skin: Positive: Warm, Skin Color Reflects Adequate Perfusion, Dry Head/Face: Positive: Normal Head/Face Inspection Eyes: Positive: EOMI, POP ENT: Positive: Normal ENT inspection Neck: Positive: Supple, Nontender Respiratory/Lung Sounds: Positive: Clear to Auscultation, Breath Sounds Present Cardiovascular: Positive: Pulses are Symmetrical in both Upper and Lower Extremities, IRR, Tachycardia Abdomen Description: Positive: Nontender, Soft Bowel Sounds: Positive: Present Musculoskeletal: Positive: Normal, Strength/ROM Intact Neurological: Positive: Normal, Sensory/Motor Intact, Alert, Oriented to Person Place, Time Diagnostics - Vital Signs Vital Signs Temp Pulse Resp BP Pulse Ox 01/21/17 17:38 98.1 F 120 15 116/78 98 - Laboratory Lab Results: Lab Results 01/21/17 01/21/17 01/21/17 Range/Units 20:21 20:21 20:21 WBC 8.0 (3.5-10.8) 10^3/ul RBC 4.20 (4.0-5.4) 10^6/ul Hgb 13.2 (12.0-16.0) g/dl Hct 38 (35-47) % MCV 90 (80-97) fL MCH 32 H (27-31) pg MCHC 35 (31-36) g/dl RDW 13 (10.5-15) % Plt Count 284 (150-450) 10^3/ul MPV 8 (7.4-10.4) um3 Neut % (Auto) 70.4 (38-83) % Lymph % (Auto) 15.0 L (25-47) % [place] % (Auto) 12.3 H (1-9) % Eos % (Auto) 1.5 (0-6) % Baso % (Auto) 0.8 (0-2) % Absolute Neuts (auto) 5.6 (1.5-7.7) 10^3/ul Absolute Lymphs (auto) 1.2 (1.0-4.8) 10^3/ul Absolute Monos (auto) 1.0 H (0-0.8) 10^3/ul Absolute Eos (auto) 0.1 (0-0.6) 10^3/ul Absolute Basos (auto) 0.1 (0-0.2) 10^3/ul Absolute Nucleated RBC 0 10^3/ul Nucleated RBC % 0 INR (Anticoag Therapy) 1.11 (0.89-1.11) APTT 32.0 (26.0-36.3) seconds Sodium (133-145) mmol/L Potassium Chloride (101-111) mmol/L Carbon Dioxide (22-32) mmol/L Anion Gap (2-11) mmol/L BUN (6-24) mg/dL Creatinine (0.51-0.95) mg/dL Est GFR ( Amer) (>60) Est GFR (Non-Af Amer) (>60) BUN/Creatinine Ratio (8-20) Glucose (70-100) mg/dL Calcium (8.6-10.3) mg/dL Magnesium Total Bilirubin (0.2-1.0) mg/dL AST ALT (7-52) U/L Alkaline Phosphatase (34-104) U/L Troponin I (<0.04) ng/mL B-Natriuretic Peptide 306 H ( - 100) pg/mL Total Protein (6.4-8.9) g/dL Albumin (3.2-5.2) g/dL Globulin (2-4) g/dL Albumin/Globulin Ratio (1-3) TSH (0.34-5.60) mcIU/mL 01/21/17 01/21/17 Range/Units 20:21 21:03 WBC (3.5-10.8) 10^3/ul RBC (4.0-5.4) 10^6/ul Hgb (12.0-16.0) g/dl Hct (35-47) % MCV (80-97) fL MCH (27-31) pg MCHC (31-36) g/dl RDW (10.5-15) % Plt Count (150-450) 10^3/ul MPV (7.4-10.4) um3 Neut % (Auto) (38-83) % Lymph % (Auto) (25-47) % [place] % (Auto) (1-9) % Eos % (Auto) (0-6) % Baso % (Auto) (0-2) % Absolute Neuts (auto) (1.5-7.7) 10^3/ul Absolute Lymphs (auto) (1.0-4.8) 10^3/ul Absolute Monos (auto) (0-0.8) 10^3/ul Absolute Eos (auto) (0-0.6) 10^3/ul Absolute Basos (auto) (0-0.2) 10^3/ul Absolute Nucleated RBC 10^3/ul Nucleated RBC % INR (Anticoag Therapy) (0.89-1.11) APTT (26.0-36.3) seconds Sodium 128 L (133-145) mmol/L Potassium TNP 3.6 Chloride 94 L (101-111) mmol/L Carbon Dioxide 28 (22-32) mmol/L Anion Gap 6 (2-11) mmol/L BUN 18 (6-24) mg/dL Creatinine 0.83 (0.51-0.95) mg/dL Est GFR ( Amer) 84.2 (>60) Est GFR (Non-Af Amer) 65.5 (>60) BUN/Creatinine Ratio 21.7 H (8-20) Glucose 101 H (70-100) mg/dL Calcium 9.4 (8.6-10.3) mg/dL Magnesium TNP 1.9 Total Bilirubin 0.50 (0.2-1.0) mg/dL AST TNP 16 ALT 15 (7-52) U/L Alkaline Phosphatase 71 (34-104) U/L Troponin I 0.02 (<0.04) ng/mL B-Natriuretic Peptide ( - 100) pg/mL Total Protein 7.6 (6.4-8.9) g/dL Albumin 4.0 (3.2-5.2) g/dL Globulin 3.6 (2-4) g/dL Albumin/Globulin Ratio 1.1 (1-3) TSH 3.35 (0.34-5.60) mcIU/mL Result Diagrams: 01/21/17 20:21 01/21/17 21:03 Lab Statement: Any lab studies that have been ordered have been reviewed, and results considered in the medical decision making process. - Radiology CXR Xray Interpretation: No Acute Changes - No radiographic evidence for acute cardiopulmonary abnormality on this portable chest x-ray. Radiology Interpretation Completed By: Radiologist - EKG 1 EKG Interpretation: 17:47 - AFIB/Aflutter @ 104 BPM Re-Evaluation - Re-Evaluation 1 Re-Evaluation Time: 22:42 Change: Unchanged Comment: Discuss test and lab results Course/Dx - Course Assessment/Plan: 86 y/o female presents to the ED c/o sudden onset palpitations described as the return of her AFib starting last night at 20:00. Denies CP, SOB and pedal edema. The pt c/o dizziness aggravated when she stands up. Pt states she did some heavy lifting yesterday. States she had an admission at this facility one month ago and was cardioverted. States she takes Eliquis for her A-fib. Pt's HR is currently at around 120 at first visit. PMHx AFIB. EKG shows 17:47 - AFIB/Aflutter @ 104 BPM. CXR SHOWS No radiographic evidence for acute cardiopulmonary abnormality on this portable chest x-ray. On re-eval the pt is still tachycardic. Spoke with Dr. Wesley who will admit the pt to the ED. - Diagnoses Differential Diagnosis/HQI/PQRI: Positive: AV Block, Congestive Heart Failure, Coronary Artery Disease, Medication Induced, Paroxymal SVT Provider Diagnoses: Atrial fibrillation with RVR - Physician Notifications Discussed Care Of Patient With: Iftikhar Wesley Time Discussed With Above Provider: 22:45 Instructed by Provider To: Admit As Inpatient - Critical Care Time Critical Care Time: 30-74 min - iv cardiazem Discharge - Discharge Plan Condition: Stable Disposition: ADMITTED TO [facility] Referrals: Franny Odom MD [Primary Care Provider] - The documentation as recorded by the Jeannette johnson Edward accurately reflects the service I personally performed and the decisions made by me, Ollie Chino.
[2017-01-22] MEDS: Amiodarone TAB* 200 MG PO SCH ×2 (01:26→19:38)
[2017-01-22] MEDS ORDERED: Diltiazem DRIP* 100 MG/100 ML ADDV.BAG IVPB SCH (03:00)
[2017-01-22] MEDS ORDERED: Apixaban* 2.5 MG TAB PO SCH (09:00)
[2017-01-22] MEDS ORDERED: Metoprolol Tartrate TAB* 25 MG PO SCH (09:00)
[2017-01-22] MEDS: Sertraline* 50 MG TAB PO SCH (09:01)
[2017-01-22] MEDS: Potassium Chlor TAB* 20 MEQ TAB.ER PO SCH ×2 (09:01→19:38)
--- NOTE | 2017-01-22 15:02 | PN ---
Subjective Date of Service: 01/22/17 Interval History: This is an 86 yo female with pafib who presented with c/o dizziness found to be in atrial fibrillation with a rapid rate. She was started on a diltiazem drip and admitted to the telemetry unit. She was admitted ~6 weeks ago after a syncopal episode, also found to be in rapid atrial fibrillation at that time. She was cardioverted by Dr Gordon and discharged in a sinus rhythm. Her amiodarone was also increased from 100 to 200 mg daily at that time. She has not followed up with Dr Galeano since discharge like it was recommended. She is chronically anticoagulated with Eliquis. She states that she has been asx since discharge up until yesterday. This am, patient was having relatively freq pauses of up to 3.5 sec. Diltiazem drip stopped. This afternoon she denies CP, SOB, palpitations or dizziness. Objective Active Medications: Amiodarone HCl (Cordarone Tab*) 200 mg PO BEDTIME [facility] Last Admin: 01/22/17 01:26 Dose: 200 mg Apixaban (Eliquis) 2.5 mg PO BID [facility] Last Admin: 01/22/17 09:01 Dose: 2.5 mg Potassium Chloride (Klor Con Er Tab*) 20 meq PO BID [facility] Last Admin: 01/22/17 09:01 Dose: 20 meq Sertraline HCl (Zoloft*) 50 mg PO DAILY [facility] Last Admin: 01/22/17 09:01 Dose: 50 mg Vital Signs: Temp Pulse Resp BP Pulse Ox 97.8 F 105 16 125/77 100 01/22/17 11:09 01/22/17 08:00 01/22/17 02:09 01/22/17 07:45 01/22/17 11:09 Oxygen Devices in Use Now: None Appearance: Frail, elderly female in NAD. Accompanied by her neice. Respiratory: Symmetrical Chest Expansion and Respiratory Effort, Clear to Auscultation Cardiovascular: NL Sounds; No Murmurs; No JVD, RRR Abdominal: NL Sounds; No Tenderness; No Distention Extremities: No Edema Neurological: Alert and Oriented x 3 Result Diagrams: 01/21/17 20:21 01/21/17 21:03 Additional Lab and Data: . Assess/Plan/Problems-Billing Assessment: This is an 86 yo female with pafib who presented in rapid atrial fibrillation following cardioversion ~6 weeks ago. - Patient Problems (1) Afib Comment: Rapid afib at admission, s/p cardioversion 12/08/16 Now rate controlled, but having pauses of 2-3.5 seconds Requested cardiology consultation to determine whether repeat cardioversion or pacemaker insertion with rate control should be considered Anticoagulated with Eliquis Diltiazem drip stopped, holding additional BB due to freq pauses Cont amiodarone Cont tele monitoring (2) Hyponatremia Comment: This seems to be somewhat chronic Will cont to monitor, but unlikely to be contributing to acute presentation (3) Hypertension Comment: Normotensive (4) Full code status (5) DVT prophylaxis Comment: Eliquis Status and Disposition: Observation status. Pending cardiology consultation
[2017-01-22] MEDS ORDERED: NS 0.9% 1000 ML* 1,000 ML IV SCH (17:45)
--- NOTE | 2017-01-22 18:39 | HP ---
CC: Dr. Odom; Dr. Galeano ADMISSION HISTORY AND PHYSICAL: DATE OF ADMISSION: 01/22/17 CHIEF COMPLAINT: Palpitations. HISTORY OF PRESENT ILLNESS: Ms. Brown is an 86-year-old woman with history of paroxysmal atrial fib rillation, who has had multiple episodes of atrial fibrillation with rapid ventricular response. To day, she developed palpitations about 24 hours prior to admission to the emergency department. She felt irregular and fast heart beat, but did not feel particularly dizzy and did not have any chest p ain or shortness of breath. She tolerated this throughout the day on Monday because she knew it m ight revert on its own. When it did not revert to normal sinus, she came to the emergency departmen t this evening. The patient was admitted to this hospital on December 08 with syncope that was attributed to parox ysmal atrial fibrillation with heart rate up to 140. During that hospital stay, the patient had con sultation with Dr. Gordon, who advised increased amiodarone dose and in the future to use metoprolol p.r.n. intravenously during these episodes. The patient ended up requiring cardioversion to get ba ck to her normal sinus rhythm, which was successful during that stay. During that stay, also she elizabeth d an echocardiogram which showed ejection fraction of 55% to 60%. She does not have any medication changes as an outpatient. She has stopped drinking caffeine and drinks decaf coffee only. PAST MEDICAL HISTORY: Includes hypertension, atrial fibrillation, history of hypothyroidism, which was resolved as well as anxiety, and right carotid stenosis. PAST SURGICAL HISTORY: Appendectomy many years ago. MEDICATIONS ON ADMISSION: 1. Acetaminophen as needed. 2. Amiodarone 200 mg p.o. q.p.m. 3. Eliquis 2.5 mg p.o. b.i.d. 4. Cetirizine 10 mg p.o. daily. 5. Multivitamin one package daily. 6. Potassium chloride 20 mEq p.o. b.i.d. 7. Sertraline 50 mg p.o. daily. ALLERGIES: She has no known drug allergies. FAMILY HISTORY: Notable for brother of congestive heart failure. Father of tetanus. Mot her of lung cancer. Sister has lymphoma. SOCIAL HISTORY: She is retired. 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 She is . She has no chi ldren. Her healthcare proxy will be her niece, Vonnie Kramer. She quit tobacco 60 years ago. Drink s alcohol rarely. No recreational drugs. REVIEW OF SYSTEMS: The patient denies any fevers, weight loss, or anorexia. The patient denies any chest pain or shortness of breath. The patient denies any peripheral edema or cough. The patient denies any nausea, vomiting, diarrhea, constipation, or abdominal pain. Remainder of her 14-point r eview of systems is negative other than that mentioned in the HPI. PHYSICAL EXAMINATION GENERAL: She is alert, in no acute distress. VITAL SIGNS: Temperature is 36.7, pulse 75 to 120, respiratory rate is 21, blood pressure is 117/79 , O2 sat is 95%. HEENT: Head is normocephalic, atraumatic. Sclerae anicteric. Pupils are equal, round and reactive to light and accommodation. Oropharynx is moist, no lesions. NECK: No JVD. No carotid bruit. No thyromegaly. LUNGS: Clear to auscultation and percussion bilaterally. HEART: Irregular. No murmurs. ABDOMEN: Soft, nontender, nondistended. Positive bowel sounds. No hepatosplenomegaly. EXTREMITIES: No peripheral edema. Dorsalis pedis pulses are 1+ bilaterally. NEUROLOGIC: Cranial nerves II through XII are intact. Motor strength is 5/5 throughout. Deep tend on reflexes are symmetric. DIAGNOSTIC STUDIES/LAB DATA: Sodium 128, potassium 3.6, chloride 94, bicarb 28, BUN 18, creatinine 0.83, glucose 101, calcium 9.4, magnesium 1.9, albumin 4.0, AST 16, ALT 15, bilirubin 0.5. TSH 3.3 5. BNP 306. Troponin 0.02. White count 8.0, hemoglobin 13.2, hematocrit 38%, and platelets 284. INR 1.11. PTT is 32.0. EKG shows atrial fibrillation with rapid ventricular response, heart rate i n the 104 with right bundle branch block. Chest x-ray is negative for infiltrates or effusions. ASSESSMENT AND PLAN: An 86-year-old woman with recurrent paroxysmal atrial fibrillation who was hav ing rapid ventricular response and some symptoms. She is not having severe symptoms such as syncope that she had earlier this month. In the emergency department, we did try to give her intravenous m etoprolol as advised by the Cardiology in the past. This did slow her rhythm but did not change to normal sinus. She will be admitted to the hospital and maintained on diltiazem drip for rate contro l. She may need further cardiology consultation to assess whether she is a candidate for additional amiodarone or p.r.n. dose of sotalol when she has episode of atrial fibrillation. She will be obse rved on telemetry and have serial troponins while she is here in the hospital to rule out cardiac is chemia. For anticoagulation, she can continue on her Eliquis. Code status is full. For DVT prophylaxis, she will remain on Eliquis. [id number]/[facility] #: [id number]
--- NOTE | 2017-01-22 23:01 | CONS ---
CC: Dr. Jeremie Galeano; Hospitalist CARDIOLOGY CONSULTATION: DATE OF CONSULT: 01/22/17 REASON FOR CONSULT: Recurrent atrial fibrillation and bradycardia. HISTORY OF PRESENT ILLNESS: Ms. Brown is an 86-year-old woman with a longstanding history of paroxy smal atrial fibrillation and dizziness, who is on amiodarone. The patient stated that Monday night she thought she went back into the atrial fibrillation with edwar reness of palpitations and fluttering of the heart. She presented to the emergency department Carlos night, she was mildly tachycardic, started on dilti azem drip and got very dizzy going to the bathroom, documented by the ED nurse, but vitals not avail able to correlate. She almost fainted, her niece was present and said nurses caught her to keep her from falling and completely fainting. The patient states that she continues to be intermittently dizzy. She denies any recent alcohol, ch barb in medications, missed doses. PAST MEDICAL HISTORY: The patient has a past medical history of: 1. Paroxysmal atrial fibrillation, cardioverted December 2016 most recently. 2. Osteoarthritis. 3. Hypertension. 4. Hypothyroid in the distant past. 5. Dyslipidemia. 6. Hyponatremia in the past, on fluid restriction. 7. Anxiety. PAST SURGICAL HISTORY: Includes cataract extraction and appendectomy. MEDICATIONS: Current inpatient medications include: 1. Amiodarone 200 mg a day. 2. Potassium chloride 40 mEq a day. 3. Zoloft 50 mg a day. 4. Eliquis 2.5 mg b.i.d. ALLERGIES: Include CODEINE. FAMILY HISTORY: Significant for a brother who of congestive heart failure at age 89. Mother h ad a history of lung cancer. Father had a history of tetanus. SOCIAL HISTORY: The patient lives independently in [place], drinks a couple of cups of coffee a day. She has a supportive niece in the area. REVIEW OF SYSTEMS: Negative for recent change in activity, fevers, chills, sweats. No recent orthop francoise, PND. No chest pain, pressure, or heaviness. It is positive for the palpitations and flutterin g and dizziness, and in the ED, near syncope. PHYSICAL EXAM: The patient is 5 feet 5 inches with a BMI of 20 with 122 pounds. Vital signs on admi ssion in the ED, pulse is 120 with a blood pressure of 116/78. Currently, blood pressure 109/49 with a pulse of 70, respiratory rate 16, saturation is 98% on room air. She is afebrile. General Appearance: A thin elderly woman, lying in bed, appears comfortable , in no acute distress. Psychologically, calm, cooperative, pleasant. Neurologically, awake, alert, oriented to person and place. I did not evaluate for time. Skin: Warm and dry. No cyanosis or ra shes. HEENT: Pupils are equal and round. Mucous membranes moist. Neck: Without increased JVP a ppreciated. No thyromegaly or lymphadenopathy. Breath sounds clear with good effort. No wheezes, rales or rhonchi. Coronary: S1, S2 irregularly irregular without murmurs. Abdomen: Soft, nonten dara, no hepatomegaly. Lower extremities are free of edema and warm. DIAGNOSTIC STUDIES/LAB DATA: White count 8.0, hemoglobin 13.2, hematocrit 38 and platelets 284. IN R 1.11. Sodium 128, potassium 3.6, chloride 94, BUN 18, creatinine 0.83, glucose 101, magnesium 1.9 , ALT of 15. Troponin I is 0.02, troponin II is 0.02, troponin III is 0.02. BNP of 306. TSH 3.35 . Chest x-ray showed no acute problems. EKG on arrival to the ED consistent with atrial flutter with variable block versus course AFib with a ventricular rate of 104 beats per minute, QRS axis +60, wi th right bundle branch block, ST segment is unremarkable. Echocardiogram 12/08/16 at [facility] showed an ejection fraction 55% to 60%, biatrial en largement, [id number] mitral insufficiency, trace tricuspid insufficiency. Monitor strips reveal pauses of 3.2 seconds. IMPRESSION: In summary, Chela Brown is an 86-year-old woman with a longstanding history of paroxys mal atrial fibrillation, on amiodarone with recurrence of atrial fibrillation, who has been on chron ic anticoagulation. She is also dizzy and had a near syncopal episode on a diltiazem drip in the ED and evidence of inte rmittent pausing. 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 Her niece was present and she is amenable to proceeding with thi s. Additionally, we could retry cardioversion with her and it may be more durable with the pacemaker an d additional options could include turning atrial fibrillation pacer algorithms on in addition to co ntinuation of amiodarone. Her sodium is low again and if this is able to be optimized, this also might decrease her chance of recurrent atrial fibrillation, although atrial fibrillation could be part of the etiology of her hyp onatremia as well. Further recommendations will be made pending her clinical course and response to the above measures. [id number]/[facility] #: [id number]
[2017-01-23 06:39] LABS: BUN/Creatinine Ratio 29.3 (8-20); Calcium 9.1 mg/dL (8.6-10.3); EGFR African American 127.4 (>60); Magnesium 1.8 mg/dL (1.9-2.7); Potassium 3.7 mmol/L (3.5-5.0)
[2017-01-23] MEDS ORDERED: ceFAZolin 2 GM PREMIX (*) 2 GM/50 ML BAG IVPB ONE (09:00)
[2017-01-23] MEDS ORDERED: ceFAZolin VIAL 1 GM in NS *SYRINGE * * 10 ML ONE (10:00)
[2017-01-23] MEDS ORDERED: Midazolam* 1 MG/ML 5 ML VIAL (5 MG) ONE (12:08)
[2017-01-23] MEDS ORDERED: fentaNYL* 50 MCG/ML 2 ML VIAL (100 MCG VIAL) ONE (12:08)
[2017-01-23] MEDS ORDERED: Lidocaine 1% INJ* 10 MG/ML 30 ML SDV ONE (12:08)
[2017-01-23] MEDS ORDERED: Acetaminophen TAB* 325 MG PO PRN (13:45)
--- NOTE | 2017-01-23 15:14 | RAD ---
Indication: Pacemaker placement. Single frontal view of the chest performed at 1447 hours was reviewed. Comparison is made with previous exam dated January 21, 2017. No mediastinal shift is noted. Heart is of normal size and configuration. Lung burris appear clear. Pacemaker leads are in place. No pneumothorax is identified. IMPRESSION: NO ACTIVE CARDIOPULMONARY DISEASE IS NOTED. NO PNEUMOTHORAX IS PRESENT.
[2017-01-23] MEDS ORDERED: Magnesium Sulfate 2 GM IV* 2 GM/50 ML BAG IVPB ONE (16:00)
[2017-01-23] MEDS: Sertraline* 50 MG TAB PO SCH (16:09)
[2017-01-23] MEDS: Potassium Chlor TAB* 20 MEQ TAB.ER PO SCH ×2 (16:09→20:07)
[2017-01-23] MEDS: oxyCODONE/Acetamin 5/325 MG* TAB PO PRN ×2 (16:21→21:23)
--- NOTE | 2017-01-23 17:44 | PN ---
Subjective Date of Service: 01/23/17 Interval History: Patient seen in the morning with no complaints before pacemaker placement. Patient seen in the afternoon after pacemaker still without complaint. Patient denies CP, SOB, palpitations, N/V, F/C, Pain at the incision site, abdominal pain, dysuria, dizziness, or other pain. Family History: Unchanged from Admission Social History: Unchanged from Admission Past Medical History: Unchanged from Admission Objective Active Medications: Acetaminophen (Tylenol Tab*) 650 mg PO Q4H PRN Amiodarone HCl (Cordarone Tab*) 200 mg PO BEDTIME JUNIOR Cefazolin Sodium 1 gm/ Sodium (Chloride) 50 mls @ 200 mls/hr IVPB Q8H JUNIOR Oxycodone/Acetaminophen (Percocet 5/325 Tab*) 1 tab PO Q4H PRN Potassium Chloride (Klor Con Er Tab*) 20 meq PO BID JUNIOR Sertraline HCl (Zoloft*) 50 mg PO DAILY JUNIOR Vital Signs 01/23/17 01/23/17 01/23/17 16:58 17:00 17:15 Temperature Pulse Rate 80 80 Respiratory Rate Blood Pressure 100/54 (mmHg) O2 Sat by Pulse 95 96 92 Oximetry Oxygen Devices in Use Now: None Appearance: Patient is an 86yo female who appears stated age and is sitting comfortably in the bed in NAD with left arm in the sling. Eyes: No Scleral Icterus, PERRLA Ears/Nose/Mouth/Throat: NL Teeth, Lips, Gums, Clear Oropharnyx, Mucous Membranes Moist Neck: NL Appearance and Movements; NL JVP, Trachea Midline Respiratory: Symmetrical Chest Expansion and Respiratory Effort, Clear to Auscultation Cardiovascular: NL Sounds; No Murmurs; No JVD, RRR, No Edema Abdominal: NL Sounds; No Tenderness; No Distention, No Hepatosplenomegaly Lymphatic: No Cervical Adenopathy Extremities: No Clubbing, Cyanosis Skin: No Rash or Ulcers, No Nodules or Sclerosis Neurological: Alert and Oriented x 3 Result Diagrams: 01/21/17 20:21 01/23/17 05:57 Additional Lab and Data: . Assess/Plan/Problems-Billing Assessment: This is an 86 yo female who presents with afib with RVR and presyncope after recent cardioversion. S/P pacer placement and cardioversion, in NSR. - Patient Problems (1) Afib Comment: Rapid afib at admission, s/p cardioversion 12/08/16 Appreciate cardiology consult. S/P pacemaker and cardioversion. Currently in NSR. Was rate controlled, but having pauses of 2-3.5 seconds Anticoagulated with Eliquis Cont amiodarone Cont tele monitoring Supplement K+ and Mg++ as needed Will consult PT/OT to assess for ability to care for self at home. (2) Hyponatremia Comment: This seems to be somewhat chronic Will cont to monitor, but unlikely to be contributing to acute presentation On chronic fluid restriction at home, will monitor. (3) Hypertension Comment: Normotensive (4) DVT prophylaxis Comment: Eliquis (5) Full code status Status and Disposition: Observation status. Will discharge in morning after OT/PT consults to ensure safe discharge.
[2017-01-23] MEDS: ceFAZolin 1 GM VIAL(*) 1 GM in NS 0.9% 50 ML* 50 ML IVPB SCH (20:07)
[2017-01-23] MEDS: Amiodarone TAB* 200 MG PO SCH (20:07)
[2017-01-24] MEDS: ceFAZolin 1 GM VIAL(*) 1 GM in NS 0.9% 50 ML* 50 ML IVPB SCH ×2 (04:19→12:15)
[2017-01-24 05:51] LABS: Hematocrit 33 % (35-47); Hemoglobin 11.5 g/dl (12.0-16.0); Mean Corpuscular HGB Conc 35 g/dl (31-36); Mean Corpuscular Hemoglobin 32 pg (27-31); Mean Corpuscular Volume 90 fL (80-97); Mean Platelet Volume 8 um3 (7.4-10.4); Red Blood Count 3.63 10^6/ul (4.0-5.4); Red Cell Distribution Width 13 % (10.5-15); White Blood Count 6.7 10^3/ul (3.5-10.8)
[2017-01-24 06:06] LABS: BUN/Creatinine Ratio 23.9 (8-20); Calcium 8.7 mg/dL (8.6-10.3); EGFR African American 100.9 (>60); EGFR Non-African American 78.4 (>60); Magnesium 2.1 mg/dL (1.9-2.7); Potassium 3.8 mmol/L (3.5-5.0)
[2017-01-24] MEDS: Sertraline* 50 MG TAB PO SCH (09:20)
[2017-01-24] MEDS: Potassium Chlor TAB* 20 MEQ TAB.ER PO SCH (09:20)
--- NOTE | 2017-01-24 09:38 | RAD ---
Indication: Status post device implant. 2 views of the chest including dual energy PA views demonstrates hyperinflated lung burris. Pacemaker leads are in place. No pleural fluid or pneumonia is identified. Overall no changes noted since January 23, 2017. No pneumothorax is noted. IMPRESSION: Pacemaker leads in place. No pneumothorax is noted.
[2017-01-24] MEDS: oxyCODONE/Acetamin 5/325 MG* TAB PO PRN (10:29)
[2017-01-24] MEDS ORDERED: Cephalexin CAP* 250 MG PO SCH (14:00)
--- NOTE | 2017-01-24 14:13 | OP ---
OPERATIVE REPORT: DATE OF OPERATION: 01/23/17 DATE OF : 34 SURGEON: Jeremie Galeano MD ANESTHESIA: Local anesthesia with conscious sedation. PRE-OP DIAGNOSES: Atrial fibrillation, sick sinus syndrome. POST-OP DIAGNOSES: Atrial fibrillation, sick sinus syndrome. OPERATIVE PROCEDURE: Dual-chamber pacemaker implantation. INDICATIONS: The patient is an 86-year-old woman with a history of atrial flutter, who has been on amiodarone for suppression of her atrial fibrillation, also has been on anticoagulation. The patien t was admitted to the hospital with episodes of dizziness. She was noted to be in atrial flutter wi th up to 5-second pauses. She does have a history of sinus bradycardia when she is in normal sinus rhythm. The patient was diagnosed with sick sinus syndrome. Permanent pacemaker was recommended. The patient was in the hospital here, she was in atrial flutter. Cardioversion was planned on the pr ocedure table during pacemaker implantation. ESTIMATED BLOOD LOSS: Nil. COMPLICATIONS: None. DESCRIPTION OF PROCEDURE: The patient was brought to the procedure room in a fasting state. Inform ed consent had been obtained prior to the procedure. All labs had been reviewed. The patient was p laced supine on the procedure table. Her left deltopectoral area was cleaned and draped in the usua l fashion. 1% lidocaine was used for local anesthesia. Under ultrasound guidance, the axillary vei n was entered by modified Seldinger technique. The patient's axillary vein was entered by second gu idewire under the same technique. A 3-cm incision was made in the pectoral area, blunt dissection w as carried down to the pectoral fascia, a pocket was fashioned for the pacemaker. Over the first gu idewire, a 7-Macedonian sheath introducer was placed through which a right ventricular lead was advanced to the RV apex. The right ventricular lead is a Medtronic model 5076, serial #[id number] that had an R-wave sensitivity of 11, impedance 967 ohms, threshold 1 volt at 0.5 milliseconds. The ventricu lar lead was then sutured to the pectoral fascia using 0 silk. At that point, the patient was given an additional 1 mg of conscious sedation. After appropriate sedation was obtained, the patient did undergo cardioversion. She was cardioverted with 100 joules of synchronized biphasic energy. The patient converted to normal sinus rhythm. Over the second guidewire, a 7-Macedonian sheath introducer w as placed through which a right atrial lead was advanced to the high right atrium. The right atrial lead is a Medtronic model 5076, serial #[id number] that had a P-wave sensitivity of 2.1, impedance 591 ohms, threshold 0.9 volts at 0.5 milliseconds. The atrial lead was then sutured to the pectoral fascia using 0 silk. At that point, the patient had gone back to atrial flutter. A second cardiov ersion was done under the same technique and was able to cardiovert her to normal sinus rhythm. At that point, the patient was paced in the atrium at 80 beats per minute to prevent return of the atri al flutter. The pocket was flushed with antibiotic-infused normal saline. The generator was attach ed appropriately to the atrial and ventricular leads. The generator is a Medtronic model A2DR01, se rial #[id number]. The device was placed in the pocket. The surgical incision was closed in 3 layer s. The patient tolerated the procedure well and no complications. The patient left in normal sinus rhythm. [id number]/[facility] #: [id number]
[2017-01-24 16:19] VITALS: BP 116/71
[2017-01-25] MEDS ORDERED: Apixaban* 2.5 MG TAB PO SCH (09:00)
--- NOTE | 2017-01-25 12:03 | DS ---
DISCHARGE SUMMARY: DATE OF ADMISSION: 01/22/17 DATE OF DISCHARGE: 01/24/17 PRIMARY CARE PHYSICIAN: Dr. Franny Odom. MY ATTENDING WHILE IN THE HOSPITAL: Dr. Derek Zapata* (dictated by JAMAR Hancock). PRIMARY DISCHARGE DIAGNOSES: 1. Atrial fibrillation with rapid ventricular response. 2. Syncope. 3. Pacemaker implantation. SECONDARY DISCHARGE DIAGNOSES: 1. Hypertension. 2. Hypothyroidism. 3. Anxiety. 4. Carotid stenosis. CONSULTING PROVIDERS: 1. Dr. Maritza Kinsey. 2. Dr. Jeremie Galeano of Cardiology. STUDIES DONE WHILE IN THE HOSPITAL: Electrocardiogram from 01/21/17 shows atrial fibrillation with a rate of 104, a right bundle-branch block pattern, unremarkable ST segment changes, normal axis, no other abnormalities. EKG from 01/23/17 shows atrial paced rhythm, right bundle branch block pattern, rate of 80, no other significant changes. Study from 01/24/17, consistent with previous study. Chest x- ray from 01/21/17 read as no radiographic evidence of acute cardiopulmonary abnormality. Chest x-ray from 01/23/17 read as no active cardiopulmonary disease noted, no pneumothorax noted. Chest x-ray from read as pacemaker leads in place, no pneumothorax is noted. MEDICATIONS ON DISCHARGE: 1. Zyrtec 10 mg p.o. daily. 2. Sertraline 50 mg p.o. daily. 3. Eliquis 2.5 mg p.o. b.i.d. 4. Multivitamins 1 pack p.o. daily. 5. Tylenol 500 mg p.o. q.6 hours. 6. Potassium chloride 20 mEq p.o. b.i.d. 7. Cephalexin 250 mg p.o. t.i.d. 8. Percocet 1 tab p.o. q.4 hours as needed for pain. New medications on discharge: 1. Cephalexin. 2. Percocet. HOSPITAL COURSE: This is a brief summary of the patient's presentation. For more details, please see the history and physical from Dr. Iftikhar Wesley on . In brief, the patient is an 86-year-old female with a past medical history significant for the above, who presented to the emergency department with irregular heart beat and dizziness with rates up to the 140 in the emergency department. The patient was previously admitted on December 08 for successful cardioversion. At which time, she had an echocardiogram, which showed a preserved ejection fraction. The patient is admitted with a diltiazem drip to control her rate and Cardiology was consulted. The patient was continued on a diltiazem drip until she started having frequent pauses up to 3.5 seconds. The patient was also started on metoprolol. Cardiology was consulted at this time for possible pacemaker implantation with which they agreed and was scheduled for 01/23/17. The patient is also planned to be cardioverted at this time. The patient had a potassium of 3.6 and magnesium 1.9 on admission. The patient's potassium increased to 3.7, magnesium decreased to 1.8 and was repleted. Patient's potassium supplementation continued throughout the hospitalization. The patient had no other issues. The patient went through uncomplicated pacemaker implantation on 01/23/17. The patient however felt uncomfortable going home on 01/23/17 because of the late time of the procedure and that she felt rather shaky still from the surgery. PT and OT were consulted for the morning of 01/24/17 to assist her with stability and with maneuvering around her arm immobilizer after discharge. The patient was educated on both of these and while they would have 24-hour support after she went home and was setup with home PT and OT. The patient was hyponatremic at the time of discharge consistent with previous hospitalizations and no aggressive treatment was indicated at this time. The patient was sent home with her new pacemaker; Keflex, Percocet for surgical incision pain; and would follow up with Dr. Galeano in 1 week. This plan was explained to the patient and she was agreeable. PHYSICAL EXAMINATION ON DAY OF DISCHARGE: General: The patient is an 86-year- old female, who appears stated age and sitting in the hospital bed, in no acute distress. HEENT: Head: Normocephalic, atraumatic. Eyes: Sclerae anicteric. No conjunctival injection. Mucous membranes moist. Pharynx nonerythematous. Neck: Supple, nontender. No lymphadenopathy. No carotid bruits auscultated. Cardiac: Regular rate and rhythm. No clicks, murmurs, gallops, or rubs. Pulses 2+ in the bilateral dorsalis pedis, posterior tibialis and radial areas. No edema. Respiratory: Clear to auscultation bilaterally. No wheezes, rales , or rhonchi. Abdomen: Soft, nontender, and nondistended. Bowel sounds present and normoactive in all 4 quadrants. No hepatosplenomegaly. Genitourinary: No CVA tenderness or suprapubic tenderness. Skin: The patient had significant burden of seborrheic keratosis, but no other rash, otherwise clean, dry and intact. Psychiatric: The patient is very pleasant and cooperative. Neuro: Cranial nerves II through XII are grossly intact. Normal gait. No focal deficits. Alert and oriented x3. LABORATORY DATA ON DAY OF DISCHARGE: Hemoglobin 11.5, platelet count 232. Sodium 127, potassium 3.8, chloride 94, carbon dioxide 28, anion gap 5, BUN 17, creatinine 0.71, glucose 98, calcium 8.7, and magnesium 2.1. DISCHARGE PLAN: The patient will be discharged home under supervision of her niece and nephew, who will be with her 24 hours a day. The patient will have home PT and OT to help her regain her functional status and help her to the transition of having to use the arm immobilizer and make sure she is safe. The patient will have a heart healthy, no caffeine diet. The patient will have Keflex 250 mg p.o. t.i.d. for 5 days per Cardiology and will follow up with them in 1 week. The patient should otherwise follow all provided pacemaker discharge instructions and take all medications at home with Eliquis starting on 01/25/17. ACTIVITY: As tolerated. Work with PT and OT in the outpatient. JAMAR HANCOCK [id number]/[facility] #: [id number] MTDHoda
== END 2017-01-24 18:30 | disposition home or self-care (01) ==
LOC: ED 17:36 → MEDTELE 01-22 00:57
PROVIDERS: ADMIT Internal Medicine; ATTEND Internal Medicine
DX: I48.0 Paroxysmal atrial fibrillation (principal); I49.5 Sick sinus syndrome; R42 Dizziness and giddiness; I45.10 Unspecified right bundle-branch block; I10 Essential (primary) hypertension; E03.9 Hypothyroidism, unspecified; Z79.01 Long term (current) use of anticoagulants; Z79.899 Other long term (current) drug therapy; R55 Syncope and collapse; F41.9 Anxiety disorder, unspecified; I65.29 Occlusion and stenosis of unspecified carotid artery; Z87.891 Personal history of nicotine dependence
CPT/HCPCS: 33208; 36415; 71010; 71020; 80048; 80053; 83735; 83880; 84443; 84484; 85025; 85610; 85730; 92960; 93005; 96365; 96366; 96367; 99156; 99157; 99291; A9270-GY; C1785; C1898; G0378; G8981-GP-CI; G8982-GP-CH; G8983-GP-CH; G8987-GO-CI; G8987-GO-CJ; G8988-GO-CI; G8989-GO-CI; J0690; J2001; J2250; J3010; J3475

== ENCOUNTER 2017-04-13 18:35 | Emergency (ER) | payer MEDICARE, BC ==
[2017-04-13] MEDS ORDERED: Metoprolol Tartrate TAB* 25 MG PO ONE (19:27)
--- NOTE | 2017-04-13 19:56 | RAD ---
INDICATION: Atrial flutter COMPARISON: January 24, 2017 TECHNIQUE: PA and lateral dual-energy views were obtained. FINDINGS: Bones/Soft Tissues: There are no acute bony findings. There is left-sided cardiac pacemaker Cardiomediastinal: The cardiomediastinal silhouette is normal. Lungs: There are no infiltrates. There is hyperinflation. Pleura: There are no pleural effusions. Other: None IMPRESSION: HYPERINFLATION. NO ACTIVE DISEASE.
[2017-04-13 20:15] VITALS: BP 128/71
[2017-04-13 20:17] LABS: ABS Basophils 0 10^3/ul (0-0.2); ABS Eosinophils 0 10^3/ul (0-0.6); ABS Monocytes 0.6 10^3/ul (0-0.8); ABS Neutrophils 2.7 10^3/ul (1.5-7.7); ABS Nucleated RBC 0 10^3/ul; Eosinophil % 0.9 % (0-6); Hematocrit 32 % (35-47); Hemoglobin 11.3 g/dl (12.0-16.0); Lymphocyte % 23.5 % (25-47); Mean Corpuscular HGB Conc 35 g/dl (31-36); Mean Corpuscular Hemoglobin 30 pg (27-31); Mean Corpuscular Volume 87 fL (80-97); Mean Platelet Volume 7 um3 (7.4-10.4); Nucleated Red Blood Cells % 0.1; Platelet Count 267 10^3/ul (150-450); Red Blood Count 3.73 10^6/ul (4.0-5.4); Red Cell Distribution Width 13 % (10.5-15); White Blood Count 4.3 10^3/ul (3.5-10.8)
[2017-04-13 20:31] LABS: EGFR Non-African American 51.1 (>60)
--- NOTE | 2017-04-29 01:17 | ED ---
Jacquelyn Gonsalves Emily, scribed for Benny Avila MD on 04/13/17 at 1922 . Palpitations / Dysrhythmia - HPI Summary HPI Summary: This patient is an 86 year old F presenting to [facility] accompanied by family with a chief complaint of palpitations that began earlier today. The patient rates the pain 0/10 in severity. Symptoms aggravated by nothing. Symptoms alleviated by nothing. Patient denies SOB and CP. Pt reports having similar symptoms previously. Medications reviewed. Allergies reviewed. - History of Current Complaint Chief Complaint: EDGeneral Hx Obtained From: Patient Onset/Duration: Sudden Onset, Lasting Hours, Still Present Timing: Constant Severity Initially: Mild Severity Currently: Mild Character: Irregular Aggravating: Nothing Alleviating: Nothing - Allergy/Home Medications Allergies/Adverse Reactions: Allergies Allergy/AdvReac Type Severity Reaction Status Date / Time No Known Drug Allergy Allergy Unknown Verified 04/13/17 18:41 Reaction Details PMH/Surg Hx/FS Hx/Imm Hx Previously Healthy: No Endocrine/Hematology History: Reports: Hx Diabetes - BORDERLINE, Hx Thyroid Disease - Hx - no treatment at this time Cardiovascular History: Reports: Hx Coronary Artery Disease, Hx Hypercholesterolemia, Hx Hypertension, Hx Pacemaker/ICD - 10/17, Hx Syncope - possibly in the past, this admission, Other Cardiovascular Problems/Disorders - "slight build up of plaque in carotid artery" Denies: Hx Auto Implanted Cardiovert Defib, Hx Cardiac Arrest, Hx Deep Vein Thrombosis Respiratory History: Reports: Hx Pneumonia GI History: Reports: Other GI Disorders - positive blood in stool pt reports she needs a colonoscopy Musculoskeletal History: Reports: Hx Arthritis - hands and hip Denies: Hx Back Problems Sensory History: Reports: Hx Contacts or Glasses Denies: Hx Cataracts - bilateral removal, Hx Hearing Aid, Hx Hearing Problem Opthamlomology History: Reports: Hx Contacts or Glasses Denies: Hx Cataracts - bilateral removal Psychiatric History: Reports: Hx Anxiety - Surgical History Surgery Procedure, Year, and Place: appendectomy. bilateral cataract removal Hx Anesthesia Reactions: No Infectious Disease History: No Infectious Disease History: Denies: Traveled Outside the [place] in Last 30 Days - Family History Known Family History: Positive: Cardiac Disease - CHF - Social History Occupation: Retired Lives: With Family Alcohol Use: Rare Hx Substance Use: No Substance Use Type: Reports: None Hx Tobacco Use: No Smoking Status (MU): Former Smoker Type: Cigarettes Have You Smoked in the Last Year: No Review of Systems - ROS Summary Review of Systems Summary: Appearance: Well-appearing, Well-nourished Skin: Warm, Dry, No rash. Toes are cyanotic. Eyes: Normal, PERRL, EOMI, sclera anicteric ENT: Normal Neck: Supple, nontender Respiratory: Clear to auscultation Cardiovascular: S1, S2, no murmur, no rub, no gallop Abdomen: Soft, nontender, no organomegaly Bowel sounds: Present Musculoskeletal: Normal, Strength/ROM Intact, no edema, pulses symmetrical Neurological: Normal, A&Ox3, cranial nerves II-XII WNL, follows commands, gait not tested, sensation intact to pin and light touch Psychiatric: affect normal, behavior appropriate, dressed appropriately, judgment intact Positive: Palpitations. Negative: Chest Pain Negative: Shortness Of Breath All Other Systems Reviewed And Are Negative: Yes Physical Exam Vital Signs On Initial Exam: Initial Vitals Temp Pulse Resp BP Pulse Ox 96.8 F 124 16 106/74 99 04/13/17 18:41 04/13/17 18:41 04/13/17 18:41 04/13/17 18:41 04/13/17 18:41 - Rikki Coma Scale Coma Scale Total: 15 Diagnostics - Vital Signs Vital Signs Temp Pulse Resp BP Pulse Ox 04/13/17 19:00 114 99 04/13/17 18:57 125/80 04/13/17 18:41 96.8 F 124 16 106/74 99 - Laboratory Result Diagrams: 04/13/17 20:05 04/13/17 20:05 Lab Statement: Any lab studies that have been ordered have been reviewed, and results considered in the medical decision making process. - Radiology CXR Radiology Interpretation Completed By: Radiologist - CXR reveals, per radiologist, hyperinflation. No active disease. ED physician has reviewed this radiology report. - EKG 1846 Cardiac Rate: Other Rate EKG Rhythm: Atrial Flutter - 127 BPM EKG Interpretation: 2-1 block. RBBB Re-Evaluation - Re-Evaluation First Eval Re-Evaluation Time: 20:00 Change: Improved Comment: Patient is in sinus rhythm Course/Dx - Course Assessment/Plan: This patient is an 86 year old F presenting to [facility] accompanied by family with a chief complaint of palpitations that began earlier today.. Patient denies SOB and CP. Physical Exam Findings. Toes are cyanotic bilaterally, good pulses. An EKG taken at 1846 reveals atrial flutter at 127 BPM with 2-1 block and RBBB. CXR reveals, per radiologist, hyperinflation. No active disease. Bloodwork obtained. In the ED course the patient was given Lopressor. Patient will be discharged with prescription for Lopressor and follow up from PCP. The patient is agreeable with this plan. - Diagnoses Provider Diagnoses: Atrial flutter, Syndrome of inappropriate antidiuretic hormone secretion Discharge - Discharge Plan Condition: Fair Disposition: HOME Prescriptions: Metoprolol Tartrate TAB* [Lopressor TAB*] 25 mg PO BID 30 Days #60 tab Patient Education Materials: Atrial Flutter (ED), Syndrome of Inappropriate Antidiuretic Hormone Secretion (ED) Referrals: Franny Odom MD [Primary Care Provider] - The documentation as recorded by the Jacquelyn johnson Emily accurately reflects the service I personally performed and the decisions made by me, Benny Avila MD.
== END 2017-04-13 21:07 | disposition home or self-care (01) ==
LOC: ED 18:35
DX: I48.92 Unspecified atrial flutter (principal); E22.2 Syndrome of inappropriate secretion of antidiuretic hormone; Z87.891 Personal history of nicotine dependence; Z86.79 Personal history of other diseases of the circulatory system
CPT/HCPCS: 36415; 71046; 80053; 84443; 84484; 85025; 93005; 99282

== ENCOUNTER 2017-07-31 10:15 | Emergency (ER) | payer MEDICARE, BC ==
--- NOTE | 2017-07-31 12:31 | RAD ---
Indication: Left hip pain, right hip pain. Single view of the pelvis as well as 2 views of left hip are reviewed. There is subchondral cyst formation with increased sclerosis in the left humeral head. This is consistent with degenerative arthritis although underlying prior avascular necrosis is not excluded. No intertrochanteric fracture is noted. Pelvic ring is intact. Similar-appearing subchondral cyst formation is noted in the right femoral head with some well-preserved hip joint may also represent avascular necrosis. IMPRESSION: Deformity and increased cyst formation in the subchondral area of the left femoral head and increased sclerosis and joint space narrowing. This may represent degenerative arthritis of moderate degree. Underlying avascular necrosis should be considered. 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
--- NOTE | 2017-07-31 12:40 | RAD ---
Indication: Syncope and fall. LEFT hip and RIGHT knee pain. Comparison: None. Technique: RIGHT knee: AP, tunnel, crosstable lateral, sunrise views. Report: Bone density appears decreased throughout. Negative for joint effusion, fracture, or malalignment. Minimal osteophytosis. Moderate patellofemoral joint space narrowing. Unremarkable soft tissue contours. IMPRESSION: No radiographic evidence for traumatic RIGHT knee injury. Mild osteoarthritis most prominent at the patellofemoral joint.
[2017-07-31 13:41] VITALS: BP 161/73
--- NOTE | 2017-07-31 16:01 | ED ---
Natalie Gonsalves Nilda, scribed for Ranjeet Jay MD on 07/31/17 at 1056 . Lower Extremity - HPI Summary HPI Summary: This patient is an 86 year old F BIBA accompanied by family with a chief complaint of constant right knee pain s/p mechanical fall last night while walking to bathroom. She states this morning she fell again and could not get up. She notes Hx of severe arthritis in L-hip. She reports abrasion R-knee and limited ROM RLE. Pt states shes on blood thinners. Symptoms aggravated by ambulation and movement and alleviated by nothing including Tylenol. - History of Current Complaint Chief Complaint: EDSyncope Stated Complaint: SYNCOPE Time Seen by Provider: 07/31/17 10:40 Hx Obtained From: Patient Mechanism Of Injury: Fall From A Standing Position, Twisted Onset of Pain: Immediate, Hours Onset/Duration: Still Present Pain Intensity: 0 Pain Scale Used: 0-10 Numeric Timing: Constant, Lasting Hours Location: Is Discrete @ - R-knee pain Associated Signs And Symptoms: Positive: Other - L-hip pain, limited ROM RLE, abrasion R-knee Aggravating Factor(s): Ambulation, Movement Alleviating Factor(s): Nothing - Allergies/Home Medications Allergies/Adverse Reactions: Allergies Allergy/AdvReac Type Severity Reaction Status Date / Time No Known Allergies Allergy Verified 07/31/17 10:34 Home Medications: Home Medications Acetaminophen TAB* [Tylenol TAB*] 650 mg PO Q6H PRN 07/31/17 [History Confirmed 07/31/17] PMH/Surg Hx/FS Hx/Imm Hx Endocrine/Hematology History: Reports: Hx Diabetes - BORDERLINE, Hx Thyroid Disease - Hx - no treatment at this time Cardiovascular History: Reports: Hx Coronary Artery Disease, Hx Hypercholesterolemia, Hx Hypertension, Hx Pacemaker/ICD - 10/, Hx Syncope - possibly in the past, this admission, Other Cardiovascular Problems/Disorders - "slight build up of plaque in carotid artery" Denies: Hx Auto Implanted Cardiovert Defib, Hx Cardiac Arrest, Hx Deep Vein Thrombosis Respiratory History: Reports: Hx Pneumonia GI History: Reports: Other GI Disorders - positive blood in stool pt reports she needs a colonoscopy Musculoskeletal History: Reports: Hx Arthritis - hands and hip Denies: Hx Back Problems Sensory History: Reports: Hx Contacts or Glasses Denies: Hx Cataracts - bilateral removal, Hx Hearing Aid, Hx Hearing Problem Opthamlomology History: Reports: Hx Contacts or Glasses Denies: Hx Cataracts - bilateral removal Psychiatric History: Reports: Hx Anxiety - Surgical History Surgery Procedure, Year, and Place: appendectomy. bilateral cataract removal Hx Anesthesia Reactions: No Infectious Disease History: No Infectious Disease History: Denies: Traveled Outside the [place] in Last 30 Days - Family History Known Family History: Positive: Cardiac Disease - CHF - Social History Alcohol Use: Rare Hx Substance Use: No Substance Use Type: Reports: None Hx Tobacco Use: No Smoking Status (MU): Former Smoker Type: Cigarettes Have You Smoked in the Last Year: No Review of Systems Positive: Other - mechanical fall Positive: Decreased ROM - RLE, Other - R-knee pain, L-hip chronic pain Positive: Other - abrasion to right knee All Other Systems Reviewed And Are Negative: Yes Physical Exam - Summary Physical Exam Summary: Appearance: The patient is well-nourished in no acute distress and in no acute pain. Skin: The skin is warm and dry and skin color reflects adequate perfusion. Small abrasion and contusion inferior to right knee laterally. HEENT: The head is normocephalic and atraumatic. The pupils are equal and reactive. The conjunctivae are clear and without drainage. Nares are patent and without drainage. Mouth reveals moist mucous membranes and the throat is without erythema and exudate. The external ears are intact. The ear canals are patent and without drainage. The tympanic membranes are intact. Neck: the neck is supple with full range of motion and non-tender. There are no carotid bruits. There is no neck vein distension. Respiratory: Chest is non-tender. Lungs are clear to auscultation and breath sounds are symmetrical and equal. Cardiovascular: Heart is regular rate and rhythm. There is no murmur or rub auscultated. There is no peripheral edema and pulses are symmetrical and equal. Abdomen: The abdomen is soft and non-tender. There are normal bowel sounds heard in all four quadrants and there is no organomegaly palpated. Musculoskeletal: There is no back tenderness noted. Extremities are non-tender with full range of motion. There is good capillary refill. There is no peripheral edema or calf tenderness elicited. Neurological: Patient is alert and oriented to person, place and time. The patient has symmetrical motor strength in all four extremities. Cranial nerves are grossly intact. Deep tendon reflexes are symmetrical and equal in all four extremities. Psychiatric: The patient has an appropriate affect and does not exhibit any anxiety or depression. Triage Information Reviewed: Yes Vital Signs On Initial Exam: Initial Vitals Resp BP 19 149/85 07/31/17 10:26 07/31/17 10:26 Vital Signs Reviewed: Yes Diagnostics - Vital Signs Vital Signs Temp Pulse Resp BP Pulse Ox 07/31/17 10:31 99.6 F 80 18 149/85 100 07/31/17 10:26 19 149/85 - Laboratory Lab Statement: Any lab studies that have been ordered have been reviewed, and results considered in the medical decision making process. - Radiology Knee XR Radiology Interpretation Completed By: Radiologist - Knee XR reveals no radiographic evidence for traumatic RIGHT knee injury. Mild osteoarthritis most prominent at the patellofemoral joint. Dr. Jay has reviewed this radiology report. Hip XR Radiology Interpretation Completed By: Radiologist - Hip XR reveals Deformity and increased cyst formation in the subchondral area of the left femoral head and increased sclerosis and joint space narrowing. This may representdegenerative arthritis of moderate degree. Underlying avascular necrosis should be considered. 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 Dr. Jay has reviewed this radiology report. Lower Extremity Course/Dx - Course Course Of Treatment: Ms. Brown has severe DJD in both of her hips although the left is much worse. She is scheduled to have surgery with Dr. Kim. She has a hard time getting around but did make it to the bathroom 5 times last night. This AM her feet got caught up in the bedding and she fell hitting her right knee. That made it very difficult to get off the floor. X-rays here were negative for acute fracture and she was able to get around the department with a walker. - Diagnoses Provider Diagnoses: Contusion of right knee Discharge - Sign-Out/Discharge Documenting (check all that apply): Discharge/Admit/Transfer - Discharge Plan Condition: Stable Disposition: HOME Patient Education Materials: Knee Pain (ED) Referrals: Criss Kim MD [Medical Doctor] - 2 Days Additional Instructions: RETURN TO THE EMERGENCY DEPARTMENT FOR CHANGING OR WORSENING SYMPTOMS. - Billing Disposition and Condition Condition: STABLE Disposition: HOME The documentation as recorded by the Natalie johnson Nilda accurately reflects the service I personally performed and the decisions made by me, Ranjeet Jay MD.
== END 2017-07-31 13:41 | disposition home or self-care (01) ==
LOC: ED 10:15
DX: S80.01XA Contusion of right knee, initial encounter (principal); W19.XXXA Unspecified fall, initial encounter; Y93.01 Activity, walking, marching and hiking; Y92.9 Unspecified place or not applicable; Z87.891 Personal history of nicotine dependence; M17.11 Unilateral primary osteoarthritis, right knee; M25.852 Other specified joint disorders, left hip
CPT/HCPCS: 99282

== ENCOUNTER 2017-08-31 11:00 | Inpatient (IN) | payer MEDICARE, BC ==
--- NOTE | 2017-11-15 14:58 | HP ---
HISTORY AND PHYSICAL: DATE OF SURGERY: 11/23/17. DATE OF OFFICE VISIT: 11/10/17. SURGEON: Criss Kim MD* (dictated by JAMAR Woo). PROCEDURE: Left total hip arthroplasty. CHIEF COMPLAINT: Left hip pain. HISTORY OF PRESENT ILLNESS: Ms. Brown is an 86-year-old female with complaints of left hip pain secondary to end-stage osteoarthritis. She has failed conservative treatment and elected to proceed with a left total hip arthroplasty which is scheduled for 11/23/[address] Kim. PAST MEDICAL HISTORY: AFib, pacemaker and hypertension. PAST SURGICAL HISTORY: Pacemaker placement, cardiac ablation and appendectomy. CURRENT MEDICATIONS: 1. Zyrtec, allergy as needed. 2. Eliquis 2.5 mg twice a day. 3. Tylenol, emergency as needed. 4. Cetirizine 10 mg daily. 5. Lisinopril 20 mg daily. 6. Metoprolol 25 mg daily. 7. Potassium chloride 20 mEq daily. ALLERGIES: To CODEINE causing nausea and vomiting. FAMILY HISTORY: Family history of cancer and heart disease. SOCIAL HISTORY: She is an 86-year-old female. She does not smoke or use drugs. She drinks alcohol rarely. REVIEW OF SYSTEMS: A complete 14-point review of systems is reviewed with the patient, all negative and noncontributory. She denies history of DVT, PE, hepatitis, HIV or anesthesia problems. PHYSICAL EXAMINATION GENERAL: She is well developed, well nourished, in no acute distress. She is alert and oriented x3, pleasant with appropriate affect. VITAL SIGNS: She stands 65 inches tall, weighs 130 pounds. Her blood pressure 120/84, heart rate 62. MUSCULOSKELETAL: Left lower extremity, the skin is intact. There are no open wounds or abrasions. She walks with an antalgic type gait favoring the left hip. Hip flexion to 80 degrees, and significant 80 degrees internal and external rotation which both reproduce severe pain. She has 5/5 lower extremity strength. 2+ dorsalis pedis pulses and intact sensation. ASSESSMENT AND PLAN: Ms. Brown is an 86-year-old female with end-stage osteoarthritis of the left hip. She has failed conservative treatment and elected to proceed with a left total hip arthroplasty which is scheduled for with Dr. Kim. Dr. Kim discussed the risks and benefits of the surgery at today's visit and all of her questions were answered. She will see Dr. Kim back in 2 weeks after the surgery. JAMAR WOO [id number]/[facility] #: [id number] [facility]DE MEDICAL CENTERHoda
[2017-11-22] MEDS ORDERED: Buffered Lidocaine 0.9% SYRIN* 5 ML/SYR SYRINGE INTRADERM ONE (11:56)
[2017-11-23] MEDS ORDERED: Famotidine IV* 10 MG/ML 2 ML (20 mg) IV ONE (06:00)
[2017-11-23] MEDS ORDERED: Dexamethasone IV* 4 MG/ML 1 ML (4 MG) IV SLOW PU ONE (06:00)
[2017-11-23] MEDS ORDERED: Dexamethasone IV* 4 MG/ML 1 ML (4 MG) ONE (12:12)
[2017-11-23] MEDS ORDERED: Famotidine IV* 10 MG/ML 2 ML (20 mg) ONE (12:12)
--- OUTSIDE RECORDS SUMMARY | 2017-11-23 12:26 | XMS REPORT ---
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 Active Onset: 04/25/2013 Essential hypertension Jeremie Galeano M.D. Active Onset: 04/25/2013 Dizziness and giddiness Jeremie Galeano M.D. Active Onset: 10/29/2014 Localized, primary osteoarthritis of Criss Kim M.D. Active the pelvic region and thigh Onset: 10/29/2014 Enthesopathy of hip region Criss Kim M.D. Active Onset: 03/14/2016 Trochanteric bursitis Criss Kim M.D. Active Family History Date Family Member(s) Problem(s) Comments General Heart Disease General Cancer Social History Type Date Description Comments Marital Status Lives With neice Cigarette Use Never Smoked Cigarettes ETOH Use Occasionally consumes alcohol Smoking Patient has never smoked Recreational Drug Use Denies Drug Use Daily Caffeine Comsumes on average 1 cup of decaff coffee per day Exercise Type/Frequency Does not exercise Allergies, Adverse Reactions, Alerts Date Description Reaction Status Severity Comments 12/11/2013 Codeine Nausea and Vomiting active per patient 04/25/2013 NKDA inactive Medications Medication Date Status Form Strength Qnty SIG Indications Ordering Provider Asad 02/22 Active Misc 1unit front s asad Ocampo M.D. dx: severe lef thip OA Emergen-C Active 1000mg daily in Unknown /0000 the winter Zyrtec Allergy Active Tablets 10mg 1 by Unknown /0000 mouth every day Eliquis Active Tablets 2.5mg 180ta 1 tablet Jeremie / bs by mouth D. Brand, twice a M.D. day. blood thinner. Acetaminophen Active Capsules 650mg 1 tab by Unknown Extra Strength /0000 mouth every 6 hours as needed Potassium Chloride Active Tablets ER 20Meq 90tab 1 by Jeremie ER / s mouth D. Brand, once M.D. every day ( taken in PM) Furosemide Active Tablets 20mg 90tab 1 by Jeremie / s mouth D. Brand, every day M.D. or as directed Lisinopril Active Tablets 20mg 90tab 1 by Jeremie / s mouth D. Brand, every day M.D. Metoprolol Active Tablets 25mg 180ta 1 by Jeremie Tartrate bs mouth D. Brand, twice a M.D. day Magnesium Oxide Active Tablets 400mg 180ta one tab Jeremie bs twice a D. Brand, day M.D. Amiodarone HCL 08/04 Hx Tablets 100mg 240ta 1 tab Jeremie bs twice a D. Brand, - day M.D. 09/13 Lopressor 04/14 Hx Tablets 25mg 180ta i by Giuseppe bs mouth Kardon, - twice a M.D. 05/02 day - only taking it once a day Tramadol HCL 03/14 Hx Tablets 50mg 60tab 1 tablet s by mouth Julio, - every 6 M.D. 03/05 hours needed pain Naproxen 06/23 Hx Tablets 500mg 60tab 1 tablet s with food Julio, - by mouth M.D. 08/19 twice day for 2 weeks Amiodarone HCL 07/05 Hx Tablets 200mg 45tab 04/04 s tablet DKaylen Galeano, - daily ( M.D. 08/04 taken in PM) Atenolol 05/02 Hx Tablets 25mg 90tab 1 po qd s Viv Galeano - M.D. 04/24 Flecainide Acetate 05/02 Hx Tablets 50mg 60tab 1 po bid s DKaylen Galeano, - M.D. 07/05 Benicar 05/02 Hx Tablets 20mg 45tab One half s tablet po D. Froylan, - qd M.D. 03/04 Hydrochlorothiazid 05/02 Hx Tablets 25mg 90tab 1 po qd Dumont s Viv Galeano - M.DKaylen 04/24 Klor-Con M20 05/02 Hx Tablets ER 20Meq 90tab 1 po qd Jeremie s DKaylen Galeano - M.D. 04/24 Nifedipine ER Hx Tablets ER 30mg 90tab 1 po qd Unknown /0000 24HR s - 09/09 Losartan Potassium Hx Tablets 50mg 90tab 1 po qd Unknown /0000 s - 12/10 Potassium Chloride Hx Tablets ER 20Meq 90tab 1 po qod Unknown ER /0000 s - 12/10 Vandana Aspirin Hx Tablets DR 81mg 100ta 1 po qd Unknown /0000 bs - 09/09 Naproxen Hx Tablets 500mg prn Unknown /0000 - 03/04 Xanax Hx Tablets 0.25mg one by Unknown /0000 mouth up - to three 03/03 times daily as needed for anxiety Fluticasone Hx Suspension 50mcg/Act 2 sprays Unknown Propionate /0000 each - nostril 03/04 daily needed Metamucil Hx Capsules 0.52gm 1 cap by Unknown /0000 mouth - with 03/04 water needed ( pt uses every other day) Sertraline HCL Hx Tablets 50mg 1 by Unknown /0000 mouth - every day 04/14 Tylenol Hx 500mg Unknown /0000 - 02/15 Medications Administered in Office Medication Date Status Form Strength Qnty SIG Indications Ordering Provider Depomedrol Administered Injection Sanam 40MG 017 JIN Oropeza Depomedrol Administered Injection Criss 40MG 016 Malissa Kim Depomedrol Administered Injection Criss 80MG 015 Malissa Kim Vital Signs Date Vital Result Comment 11/10/2017 Height 65 inches 5'5" Weight 130.00 lb Heart Rate 62 /min BP Systolic Sitting 120 mmHg BP Diastolic Sitting 84 mmHg Respiratory Rate 16 /min Pain Level 9 BMI (Body Mass Index) 21.6 kg/m2 10/19/2017 Height 65 inches 5'5" Weight 121.00 lb per pt Heart Rate 84 /min BP Systolic Sitting 124 mmHg Lue reg cuff BP Diastolic Sitting 70 mmHg Lue reg cuff Respiratory Rate 16 /min Body Temperature 98.1 F tympanic BMI (Body Mass Index) 20.1 kg/m2 Ejection Fraction 55-60% as of 12/09/16 echo 09/13/2017 Height 65 inches 5'5" Weight 130.00 lb without shoes Heart Rate 90 /min BP Systolic Sitting 120 mmHg Lue reg cuff BP Diastolic Sitting 84 mmHg Lue reg cuff BP Systolic Standing 120 mmHg Lue reg cuff BP Diastolic Standing 80 mmHg Lue reg cuff Respiratory Rate 16 /min BMI (Body Mass Index) 21.6 kg/m2 Ejection Fraction 55-60% as of 2016 echo 08/16/2017 Height 65 inches 5'5" Weight 128.00 lb Heart Rate 98 /min BP Systolic Sitting 122 mmHg lue reg cuff BP Diastolic Sitting 62 mmHg lue reg cuff BP Systolic Standing 120 mmHg lue reg cuff BP Diastolic Standing 70 mmHg lue reg cuff Respiratory Rate 18 /min O2 % BldC Oximetry 95 % BMI (Body Mass Index) 21.3 kg/m2 Ejection Fraction 55-60% 08/04/2017 Height 65 inches 5'5" Weight 130.50 lb without shoes Heart Rate 152 /min irreg BP Systolic Sitting 122 mmHg Rue reg cuff BP Diastolic Sitting 90 mmHg Rue reg cuff BP Systolic Standing 118 mmHg Rue reg cuff BP Diastolic Standing 90 mmHg Rue reg cuff BMI (Body Mass Index) 21.7 kg/m2 05/03/2017 Height 65 inches 5'5" Weight 127.00 lb No shoes Heart Rate 80 /min BP Systolic Sitting 124 mmHg Lue reg cuff BP Diastolic Sitting 78 mmHg Lue reg cuff Respiratory Rate 16 /min BMI (Body Mass Index) 21.1 kg/m2 Ejection Fraction 55-60% 12/09/2016-echo 02/28/2017 Height 65 inches 5'5" Weight 127.00 lb w/shoes Heart Rate 78 /min BP Systolic Sitting 112 mmHg LA reg cuff BP Diastolic Sitting 68 mmHg LA reg cuff BP Systolic Standing 96 mmHg LA reg cuff BP Diastolic Standing 64 mmHg LA reg cuff BMI (Body Mass Index) 21.1 kg/m2 Ejection Fraction 50-55% Echo 12/09/16 02/22/2017 Height 65 inches 5'5" Weight 130.00 lb Heart Rate 88 /min Respiratory Rate 14 /min Body Temperature 97.9 F Pain Level 8 BMI (Body Mass Index) 21.6 kg/m2 01/31/2017 Height 65 inches 5'5" Weight 126.50 lb no shoes Heart Rate 78 /min BP Systolic Sitting 142 mmHg Rue reg cuff BP Diastolic Sitting 84 mmHg Rue reg cuff BP Systolic Standing 120 mmHg Rue reg cuff BP Diastolic Standing 88 mmHg Rue reg cuff Respiratory Rate 16 /min BMI (Body Mass Index) 21.0 kg/m2 Ejection Fraction 55-60% echo 12/09/16 12/28/2016 Height 65 inches 5'5" Weight 130.00 lb Heart Rate 60 /min BP Systolic 153 mmHg BP Diastolic 73 mmHg Body Temperature 97.2 F BMI (Body Mass Index) 21.6 kg/m2 05/18/2016 Height 65 inches 5'5" Weight 130.00 lb Heart Rate 65 /min BP Systolic 173 mmHg BP Diastolic 84 mmHg Pain Level 4 BMI (Body Mass Index) 21.6 kg/m2 04/20/2016 Height 65 inches 5'5" Weight 138.00 lb Respiratory Rate 18 /min Pain Level 2 BMI (Body Mass Index) 23.0 kg/m2 03/25/2016 Height 65 inches 5'5" Weight 138.00 lb Pain Level 4 BMI (Body Mass Index) 23.0 kg/m2 03/17/2016 Height 65 inches 5'5" Weight 138.00 lb w/o shoes Heart Rate 74 /min BP Systolic Sitting 122 mmHg Lue, reg cuff BP Diastolic Sitting 84 mmHg Lue, reg cuff BP Systolic Standing 130 mmHg Lue BP Diastolic Standing 86 mmHg Lue Respiratory Rate 16 /min BMI (Body Mass Index) 23.0 kg/m2 Ejection Fraction 65% as of 05/23/12 echo 03/14/2016 Height 65 inches 5'5" Weight 142.00 lb Heart Rate 64 /min BP Systolic 140 mmHg BP Diastolic 90 mmHg Pain Level 7 BMI (Body Mass Index) 23.6 kg/m2 09/11/2015 Height 65 inches 5'5" Weight 142.00 lb with shoes Heart Rate 76 /min BP Systolic Sitting 142 mmHg LA reg cuff BP Diastolic Sitting 76 mmHg LA reg cuff BP Systolic Standing 144 mmHg LA reg cuff BP Diastolic Standing 72 mmHg LA reg cuff Respiratory Rate 16 /min BMI (Body Mass Index) 23.6 kg/m2 Ejection Fraction 65% date 05/2012 ECHO 11/11/2014 Height 65 inches 5'5" Weight 134.00 lb Heart Rate 62 /min BP Systolic Sitting 170 mmHg right arm, reg cuff BP Diastolic Sitting 86 mmHg right arm, reg cuff BP Systolic Standing 152 mmHg right arm, reg cuff BP Diastolic Standing 86 mmHg right arm, reg cuff Respiratory Rate 20 /min BMI (Body Mass Index) 22.3 kg/m2 Ejection Fraction 65% 05/23/12 10/29/2014 Height 65 inches 5'5" Weight 132.00 lb Heart Rate 65 /min BP Systolic 122 mmHg BP Diastolic 69 mmHg Pain Level 4 O2 % BldC Oximetry 69 % BMI (Body Mass Index) 22.0 kg/m2 08/20/2014 Height 65 inches 5'5" Weight 132.00 lb Heart Rate 63 /min BP Systolic 134 mmHg BP Diastolic 89 mmHg Pain Level 0 BMI (Body Mass Index) 22.0 kg/m2 07/16/2014 Height 65 inches 5'5" Weight 132.00 lb Heart Rate 65 /min BP Systolic 136 mmHg BP Diastolic 82 mmHg Body Temperature 97.9 F Pain Level 6 BMI (Body Mass Index) 22.0 kg/m2 06/23/2014 Height 65 inches 5'5" Weight 132.00 lb Heart Rate 70 /min BP Systolic 160 mmHg BP Diastolic 80 mmHg BMI (Body Mass Index) 22.0 kg/m2 12/11/2013 Height 64.75 inches 5'4.75" Weight 144.00 lb with shoes Heart Rate 70 /min BP Systolic Sitting 154 mmHg Ra reg cuff BP Diastolic Sitting 78 mmHg Ra reg cuff BP Systolic Standing 136 mmHg Ra reg cuff BP Diastolic Standing 70 mmHg Ra reg cuff Respiratory Rate 16 /min BMI (Body Mass Index) 24.1 kg/m2 04/25/2013 Height 64.75 inches 5'4.75" Weight 149.00 lb no shoes Heart Rate 72 /min BP Systolic Sitting 172 mmHg Ra, reg cuff BP Diastolic Sitting 92 mmHg Ra, reg cuff BP Systolic Standing 154 mmHg BP Diastolic Standing 88 mmHg Respiratory Rate 18 /min BMI (Body Mass Index) 25.0 kg/m2 Results Test Date Test Result H/L Range Note Basic Metabolic Panel 09/06/2017 Sodium 132 mmol/L Low 139-145 Potassium 4.3 mmol/L 3.5-5.0 Chloride 94 mmol/L Low 101-111 Co2 Carbon Dioxide 31 mmol/L 22-32 Anion Gap 7 mmol/L 2-11 Glucose 97 mg/dL 70-100 Blood Urea Nitrogen 13 mg/dL 6-24 Creatinine 0.82 mg/dL 0.51-0.95 BUN/Creatinine Ratio 15.9 8-20 Calcium 9.0 mg/dL 8.6-10.3 Egfr Non- 66.4 >60 Egfr 85.4 >60 1 Laboratory test finding 09/06/2017 Magnesium 1.9 mg/dL 1.9-2.7 Laboratory test finding 08/04/2017 Magnesium 1.7 mg/dL Low 1.9-2.7 CBC Auto Diff 08/04/2017 White Blood Count 3.3 10^3/uL Low 3.5-10.8 Red Blood Count 3.73 10^6/uL Low 4.0-5.4 Hemoglobin 11.3 g/dL Low 12.0-16.0 Hematocrit 32 % Low 35-47 Mean Corpuscular Volume 86 fL 80-97 Mean Corpuscular Hemoglobin 30 pg 27-31 Mean Corpuscular HGB Conc 35 g/dL 31-36 Red Cell Distribution Width 13 % 10.5-15 Platelet Count 278 10^3/uL 150-450 Mean Platelet Volume 7.4 um3 7.4-10.4 Abs Neutrophils 1.5 10^3/uL 1.5-7.7 Abs Lymphocytes 1.2 10^3/uL 1.0-4.8 Abs Monocytes 0.5 10^3/uL 0-0.8 Abs Eosinophils 0.1 10^3/uL 0-0.6 Abs Basophils 0 10^3/uL 0-0.2 Abs Nucleated RBC 0 10^3/uL Granulocyte % 46.2 % 38-83 Lymphocyte % 34.7 % 25-47 Monocyte % 16.2 % High 0-7 Eosinophil % 1.9 % 0-6 Basophil % 1.0 % 0-2 Nucleated Red Blood Cells % 0.1 Basic Metabolic Panel 08/04/2017 Sodium 123 mmol/L Low 139-145 Potassium 3.7 mmol/L 3.5-5.0 Chloride 88 mmol/L Low 101-111 Co2 Carbon Dioxide 28 mmol/L 22-32 Anion Gap 7 mmol/L 2-11 Glucose 94 mg/dL 70-100 Blood Urea Nitrogen 10 mg/dL 6-24 Creatinine 0.87 mg/dL 0.51-0.95 BUN/Creatinine Ratio 11.5 8-20 Calcium 9.3 mg/dL 8.6-10.3 Egfr Non- 62.0 >60 Egfr 79.8 >60 2 Laboratory test finding 01/31/2017 Magnesium <pending> 1 Because ethnic data is not always readily available, this report includes an eGFR for both -Americans and non- Americans. The National Kidney Disease Education Program (NKDEP) does not endorse the use of the MDRD equation for patients that are not between the ages of 18 and 70, are , have extremes of body size, muscle mass, or nutritional status, or are non- or non-. According to the National Kidney Foundation, irrespective of diagnosis, the stage of the disease is based on the level of kidney function: Stage Description GFR(mL/min/1.73 m(2)) 1 Kidney damage with normal or decreased GFR 90 2 Kidney damage with mild decrease in GFR 60-89 3 Moderate decrease in GFR 30-59 4 Severe decrease in GFR 15-29 5 Kidney failure <15 (or dialysis) 2 Because ethnic data is not always readily available, this report includes an eGFR for both -Americans and non- Americans. The National Kidney Disease Education Program (NKDEP) does not endorse the use of the MDRD equation for patients that are not between the ages of 18 and 70, are , have extremes of body size, muscle mass, or nutritional status, or are non- or non-. According to the National Kidney Foundation, irrespective of diagnosis, the stage of the disease is based on the level of kidney function: Stage Description GFR(mL/min/1.73 m(2)) 1 Kidney damage with normal or decreased GFR 90 2 Kidney damage with mild decrease in GFR 60-89 3 Moderate decrease in GFR 30-59 4 Severe decrease in GFR 15-29 5 Kidney failure <15 (or dialysis) Procedures Date CPT Code Description Status 10/19/2017 50649 EKG Tracing & Interpretation Completed 09/13/2017 01091 EKG Tracing & Interpretation Completed 08/16/2017 17278 EKG Tracing & Interpretation Completed 08/14/2017 10465 EKG, Interpretation Only Completed 08/14/2017 56289 Moderate Sedation Services; Same Phys Intl 15 Mins; PT Completed >=5 Years 08/14/2017 76742 Cardioversion Completed 08/07/2017 31306 EKG, Interpretation Only Completed 08/07/2017 42985 Cardioversion Completed 08/04/2017 70589 Cardioversion Completed 08/04/2017 09577 EKG Tracing & Interpretation Completed 08/04/2017 22268 EKG, Interpretation Only Completed 08/04/2017 26391 Pace Maker Eval W/Iterative Adjment Dual Lead Completed 08/04/2017 79107 Pace Maker Eval W/Iterative Adjment Dual Lead Completed 07/28/2017 09809 Pace Maker Eval W/Iterative Adjment Dual Lead Completed 07/28/2017 95936 Pace Maker Eval W/Iterative Adjment Dual Lead Completed 05/03/2017 97936 EKG Tracing & Interpretation Completed 02/15/2017 11698 Pace Maker Eval W/Iterative Adjment Dual Lead Completed 02/15/2017 69503 Pace Maker Eval W/Iterative Adjment Dual Lead Completed 01/31/2017 76194 EKG Tracing & Interpretation Completed 01/24/2017 22563 EKG, Interpretation Only Completed 01/23/2017 33181 EKG, Interpretation Only Completed 01/23/2017 39840 Perm Pacemaker Av Sequential Atrial And Ventricular Completed 12/28/2016 52877 Inject/Drain Joint/Bursa Major W/O US Completed 12/09/2016 17365 ECHO Transthorasic Realtime 2D W Doppler & Color Flow Completed Hosp 12/08/2016 08793 Moderate Sedation Services; Same Phys Intl 15 Mins; PT Completed >=5 Years 12/08/2016 42997 Cardioversion Completed 03/17/2016 53536 EKG Tracing & Interpretation Completed 03/14/201650495 Injection Single Tendon Origin/Insertion Completed 09/11/2015 45583 EKG Tracing & Interpretation Completed 08/18/2015 45504 Color Flow Doppler/Interp & Reprt Completed 08/18/2015 89777 Pulse Wave/Continuous-Interp.RPT Completed 08/18/2015 64542 Echocardiography, Transesophageal, Real Time W/Image 2D Completed W/W/O M-M 08/18/2015 65594 Cardioversion Completed 11/11/2014 55139 EKG Tracing & Interpretation Completed 10/29/2014 62478 Inject/Drain Joint/Bursa Major W/O US Completed 07/23/2014 73098 EKG, Interpretation Only Completed 07/22/2014 20976 EKG, Interpretation Only Completed 12/11/2013 86576 EKG Tracing & Interpretation Completed 04/30/2013 94412 Holter Monitoring 24 HR New Completed 07/05/2012 75094 EKG Tracing & Interpretation Completed 06/21/2012 44512 EKG, Interpretation Only Completed 05/25/2012 28301 EKG Tracing & Interpretation Completed 05/23/2012 54372 ECHO Transthoracic, Real-Time 2D With Doppler And Color Completed Flow 04/17/2012 77567 EKG, Interpretation Only Completed 04/16/2012 67642 EKG, Interpretation Only Completed 04/16/2012 96990 EKG Tracing & Interpretation Completed Encounters Type Date Location Provider CPT E/M Dx Office Visit 10/19/2017 [facility] Hira Galeano, 24001 I48.0 2:30p Mo M.DKaylen Z95.0 I49.5 Z01.810 M16.12 Office Visit 09/13/2017 10:45a [facility] Hira Galeano, 92574 I48.0 Mo Leonardo Z95.0 I49.5 W19.xxxA Office Visit 08/16/2017 12:00p [facility] Hira Galeano, 64241 I48.92 [facility] M.D. I49.5 Z95.0 Office Visit 08/04/2017 12:00p [facility] Jeremie Galeano, 64222 Z95.0 [facility] M.D. I48.0 I49.5 Office Visit 05/03/2017 2:45p [facility] Jeremie Galeano, 68358 I48.0 [facility] M.D. Z95.0 I49.5 Office Visit 02/28/2017 1:15p [facility] Jeremie Galeano, 61942 I48.0 [facility] Sustainability Specialist [facility] M.[place]. Z95.0 I49.5 Office Visit 02/22/2017 11:30a [facility] Criss Kim M.D. 54377 M25.552 C.M.A. M16.12 M70.62 Office Visit 01/31/2017 3:30p [facility] JAMAR Dowell 44787 I48.0 R55 I49.5 Z95.0 E87.6 Office Visit 01/24/2017 2:54p [facility],JAMAR Hanley 26007 I48.91 Hospitalists Office Visit 01/22/2017 2:51p [facility], Iftikhar Wesley, 22331 I48.91 Hospitalists Malissa,FACP Office Visit 01/22/2017 2:49p [facility] Maritza Kinsey M.D. 18812 I49.5 [facility] I48.0 Office Visit 12/28/2016 3:10p [facility] JIN Acosta 62370 M16.12 C.M.A. M70.62 Office Visit 12/09/2016 12:52p [facility],jess Ocampo, 57126 I48.0 Hospitalists Malissa R55 F41.9 I10 Office Visit 12/08/2016 8:54a [facility] Solitario Gordon M.D. 80228 I48.0 I10 R55 R79.89 Office Visit 12/08/2016 12:52p [facility],JAMAR Hanley 59098 I48.0 Hospitalists R55 F41.9 I10 Office Visit 05/18/2016 11:30a [facility] Criss Kim M.D. 88882 M25.552 C.M.A. M16.12 Office Visit 04/20/2016 11:15a [facility] Criss Kim M.D. 97119 M25.552 C.M.A. M70.62 M16.12 Office Visit 03/25/2016 8:30a [facility] Criss Kim M.D. 63217 M25.552 C.M.A. M70.62 M16.12 Office Visit 03/17/2016 1:00p [facility] Jeremie Galeano, 95546 I48.1 [facility] M.D. I10 Office Visit 03/14/2016 1:15p [facility] Criss Kim M.D. 85221 M25.552 C.M.A. M70.62 M16.12 Office Visit 09/11/2015 3:45p [facility] Jeremie Galeano, 04864 I48.1 [facility] M.DKaylen I10 Office Visit 08/18/2015 9:55a [facility], Lupis Alvarado N.Skylar 92400 I48.91 Hospitalists F32.9 Z91.09 Office Visit 08/18/2015 1:28p [facility] Maritza Kinsey M.D. 03657 I48.0 [employer] S[employer]ability Specialist Office Visit 08/17/2015 12:29p [facility] Jeremie Galeano, 58924 I48.0 [facility] M.D. Office Visit 08/17/2015 9:55a [facility], Emile Doyle 26808 I48.91 Hospitalists N.P. F32.9 Z91.09 Office Visit 11/11/2014 1:30p [facility] Jeremie Galeano, 19758 427.31 [facility] Sustainability Specialist AT [facility] M.DKaylen 401.9 Office Visit 08/20/2014 1:15p [facility] Criss Kim M.D. 03533 715.15 C.M.A. 726.5 Office Visit 07/23/2014 8:56a [facility] Daniel Blount M.D. 62654 786.50 Hospitalists 729.5 300.00 401.9 Office Visit 07/16/2014 2:30p [facility] Criss Kim M.D. 39788 715.15 C.M.A. Office Visit 06/23/2014 1:15p [facility] Criss Kim M.D. 96412 715.15 C.M.A. Office Visit 12/11/2013 10:30a [facility] Jeremie HodaKaylen Galeano, 02802 427.31 [employer] Specialist M.D. 401.9 Office Visit 04/25/2013 12:30p [facility] Jeremie HodaKaylen Galeano, 57831 427.31 [employer] Specialist M.DKaylen 401.9 780.4 Office Visit 10/12/2012 12:45p [facility] Jeremie HodaKaylen Galeano, 98965 427.31 [employer] S[employer]ability Specialist M.DKaylen 401.9 Office Visit 07/05/2012 12:45p [facility] Jeremie DrummondKaylen Galeano, 63590 427.31 [employer] S[employer]ability Specialist M.D. Office Visit 06/22/2012 12:18p [facility],pc Tiffayn Ocampo, 24298 780.2 Hospitalists MChu 802.0 427.31 Office Visit 06/21/2012 4:04p [facility] Jeremie DrummondKaylen Galeano, 69543 427.31 [employer]ability Specialist M.DKaylen 780.2 Office Visit 06/20/2012 1:55p [facility] Goyo Patel, 18170 427.31 M.DKaylen, [facility] Office Visit 06/20/2012 12:17p [facility] Emile Doyle, 66301 780.2 Hospitalists N.P. 802.0 427.31 Office Visit 05/25/2012 2:00p [facility] Jeremie DrummondKaylen Galeano, 88219 427.31 Lead Sustainability Specialist M.D. Office Visit 05/02/2012 2:15p [facility] Jeremie HodaKaylen Galeano, 83075 427.31 Lead Sustainability Specialist M.Viv 785.2 Office Visit 04/17/2012 4:05p [facility] Jeremie Galeano, 33890 427.31 [facility] M.D. Office Visit 04/16/2012 3:45p [facility] Jeremie Galeano, 85761 427.31 [facility] AT [facility] M.D. Office Visit 04/16/2012 1:00p [facility] [place] [address] 427.32 [facility] Plan of Care Future Appointment(s):12/05/2017 3:45 pm - JAMAR Michelle at [facility].A.11/23/2017 9:30 am - Tomer Green PA-C at [facility] .M.A.11/23/2017 9:30 am - JAMAR Michelle at [facility]11/23/2017 9:30 am - Criss Kim M.D. at [facility]11/10/2017 - Criss Kim M.D.M25.552 Pain in left hipNew Xrays:Hip Left 2 Views And Pelvis 18407 - 07471Azlnym up:2 weeks after rhexoewY48.12 Unilateral primary osteoarthritis, left hip
[2017-11-23] MEDS ORDERED: fentaNYL* 50 MCG/ML 2 ML VIAL (100 MCG VIAL) IV SLOW PU PRN (13:07)
[2017-11-23] MEDS ORDERED: fentaNYL* 50 MCG/ML 2 ML VIAL (100 MCG VIAL) ONE ×3 (13:15→18:48)
[2017-11-23] MEDS ORDERED: ceFAZolin 2 GM PREMIX (*) 2 GM/50 ML BAG IVPB ONE (13:15)
[2017-11-23] MEDS ORDERED: Midazolam* 1 MG/ML 5 ML VIAL (5 MG) ONE (13:55)
[2017-11-23] MEDS ORDERED: Propofol* 10 MG/ML 20 ML BTL IV PUSH ONE (13:55)
[2017-11-23] MEDS ORDERED: Ondansetron INJ* 2 MG/ML VIAL ONE (13:55)
[2017-11-23] MEDS ORDERED: ROPIVACAINE 5 MG/ML 30 ML BTL (0.5%) ONE ×2 (13:56→14:28)
[2017-11-23] MEDS ORDERED: Ropivacaine (OR use only) 2 MG/ML 10 ML ONE (14:28)
[2017-11-23] MEDS ORDERED: Ropivacaine* 2 MG/ML 20 ML VIAL (0.2%) ONE ×2 (14:32→15:43)
[2017-11-23] MEDS ORDERED: Metoprolol Tartrate IV* 1 MG/ML 5 ML VIAL ONE (15:54)
[2017-11-23] MEDS ORDERED: Naloxone* 0.4 MG/ML 1 ML VIAL IV PRN (16:22)
[2017-11-23] MEDS ORDERED: Ondansetron INJ* 2 MG/ML VIAL IV PRN (16:22)
--- NOTE | 2017-11-23 17:03 | RAD ---
INDICATION: Left hip arthroplasty COMPARISON: November 10, 2017 TECHNIQUE: A crosstable lateral portable image of the left hip was obtained for operative planning FINDINGS: There is placement the acetabular cup and femoral stem for sizing IMPRESSION: OPERATIVE CONTROL FILMS ARE SUBMITTED
[2017-11-23] MEDS ORDERED: Magnesium Hydroxide LIQ* 30 ML UDC PO PRN (17:50)
[2017-11-23] MEDS ORDERED: diPHENhydraMINE PO* 25 MG PO PRN (17:50)
[2017-11-23] MEDS ORDERED: Temazepam CAP* 15 MG PO PRN (17:50)
[2017-11-23] MEDS ORDERED: Morphine INJ* 2 MG/ML 1 ML SYRINGE (TWO MG - NEW SYRINGE VERSION) IV PRN (17:50)
[2017-11-23] MEDS ORDERED: Bisacodyl SUPP* 10 MG SUPP PR PRN (17:50)
[2017-11-23] MEDS ORDERED: Polyethylene Glycol 3350* 17 GM PACKET PO PRN (17:50)
[2017-11-23] MEDS ORDERED: diPHENhydraMINE IV* 50 MG/ML 1 ml VIAL (BENADRYL) IV PRN (17:50)
[2017-11-23] MEDS ORDERED: oxyCODONE/Acetamin 5/325 MG* TAB PO PRN ×2 (17:50)
[2017-11-23] MEDS ORDERED: Furosemide TAB* 20 MG PO PRN (17:56)
[2017-11-23] MEDS ORDERED: HYDROmorphone INJ* 0.5 MG/0.5 ML SYRINGE ONE (18:48)
[2017-11-23] MEDS: fentaNYL* 50 MCG/ML 2 ML VIAL (100 MCG VIAL) IV PRN ×2 (18:50→18:56)
[2017-11-23] MEDS: HYDROmorphone INJ* 0.5 MG/0.5 ML SYRINGE IV PRN ×2 (18:50→18:59)
--- NOTE | 2017-11-23 22:25 | CONS ---
CC: Dr. Criss Kim; Dr. Noreen Reese; Dr. Odom.* CONSULTATION REPORT: DATE OF CONSULT: 11/23/17. REQUESTING PROVIDER: Dr. Criss Kim. MY ATTENDING WHILE IN THE HOSPITAL: Dr. Noreen Reese. PRIMARY CARE PROVIDER: Dr. Odom. REASON FOR CONSULT: Co-management and comorbid medical condition. HISTORY OF PRESENT ILLNESS: Ms. Brown is an 86-year-old female with past medical history significant for atrial fibrillation status post AV blayne ablation with permanent pacemaker implantation, hypertension, carotid stenosis, anxiety resolved, hypothyroidism, and severe osteoarthritis who is inpatient in the hospital status post elective left hip arthroplasty for severe osteoarthritis, which failed outpatient treatment. Patient was preoperatively cleared by her area development manager, Dr. Jeremie Galeano. She currently has no active cardiac issues. Patient's pacemaker is functioning well. Patient is anticoagulated with Eliquis which he stopped 5 days ago. Patient has taken lisinopril, metoprolol and Lasix as needed. Patient only took her metoprolol this morning. Patient has been having no other recent illnesses except for allergies for which she takes Zyrtec. Patient had no other recent change in medication or sick contacts. Patient has not had any increase in her weight. Patient had swelling in her left leg only, which was responsive to Lasix and likely related to her hip osteoarthritis. Patient had no dysuria, productive cough, chest pain, shortness of breath, nausea, vomiting, dizziness, palpitations or other preoperative symptoms. Patient currently is having 6/10 pain and had been regaining feeling and movement in her left hip. Patient intraoperatively had 200 mL of estimated blood loss and patient had spinal block and iliac block for anesthesia. The patient postoperatively was having a sharp pleuritic pain in her central chest only with deep breathing, which diminished after approximately 10 deep breaths and eventually resolved. PAST MEDICAL HISTORY: Atrial fibrillation status post atrial blayne ablation with pacemaker implantation, hypertension, carotid stenosis, anxiety, osteoarthritis. PAST SURGICAL HISTORY: Cataract removal, appendectomy, cardiac ablation, pacemaker placement. MEDICATIONS: 1. Zyrtec 10 mg p.o. as needed. 2. Eliquis 2.5 mg p.o. b.i.d. 3. Tylenol 650 mg p.o. q.4 hours as needed. 4. Lisinopril 20 mg p.o. daily. 5. Metoprolol 25 mg p.o. daily. 6. Magnesium oxide 400 mg p.o. b.i.d. 7. Potassium chloride 20 mEq p.o. daily. 8. Lasix 20 mg p.o. every other day or as needed. ALLERGIES: CODEINE. FAMILY HISTORY: Patient's brother had CHF, patient's sister with lymphoma, patient's mother had lung cancer, patient's grandmother had oral cancer. Patient has no other known family history. SOCIAL HISTORY: Patient smoked briefly 6 years ago. Patient drinks rare alcohol. Patient has never used illicit drugs. Patient drinks 1 cup of decaf coffee a day. 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 Patient was for 10 years, is and has no children. Patient's surrogate decision maker is her niece. REVIEW OF SYSTEMS: A 14-point review of systems was reviewed is negative except as above in the HPI. PHYSICAL EXAM: General: Patient is an 86-year-old female who appears stated age and sitting comfortably in bed, in no distress. Vital signs at the time of evaluation, temperature 97.0, pulse rate 70, respiratory rate 16, oxygen saturation 93% on 2 L, blood pressure 151/84. HEENT: Head, normocephalic, atraumatic. Sclerae anicteric. No conjunctival injection. Nasal mucosa moist. Oral mucosa moist. No pharyngeal erythema, discharge, or exudate. Neck: Supple, nontender. No lymphadenopathy. No carotid bruits auscultated. No JVD. Respiratory: Clear to auscultation bilaterally. No wheezes, rales, or rhonchi. Good air exchange bilaterally. Cardiac: Regular rate and rhythm. No clicks, murmurs, gallops, or rubs. Pulses are 2+ in the bilateral dorsalis pedis, posterior tibialis, and radial areas. No calf tenderness bilaterally. Abdomen: Soft, nontender, nondistended. Bowel sounds present in all 4 quadrants. No hepatosplenomegaly. No abdominal bruits auscultated. No hepatojugular reflux on inspection. Genitourinary: No suprapubic or CVA tenderness. The patient has a Lanza catheter draining clear yellow urine. Neurologic: Cranial nerves II through XII are intact. No focal deficits. Alert and oriented x3. Psychiatric: Pleasant and cooperative. PREOPERATIVE LABORATORY DATA: White blood cell count 5.7, hemoglobin 12.0, platelet count 299. INR 1.29. PTT 40.8. Sodium 129, potassium 4.1, chloride 92, carbon dioxide 29, anion gap 8, BUN 15, creatinine 0.75, glucose 98, calcium 9.9, bilirubin 0.8, AST 17, ALT 12, alkaline phosphatase 83, albumin 4.7 , globulin 3.2. ASSESSMENT AND PLAN/IMPRESSION: Ms. Brown is an 86-year-old female with past medical history significant for atrial fibrillation status post AV blayne ablation, pacemaker implantation as well as hypertension, carotid stenosis and anxiety who is status post left total hip replacement, doing well. 1. Status post left total hip replacement. Management per orthopedics. Pain control per primary team. 2. DVT prophylaxis initially with Lovenox transitioning to apixaban as per orthopedics. 3. Fluids as needed until taking adequate fluid intake. 4. Atrial fibrillation. Patient is currently in persistent atrial flutter according to her area development manager. Patient has a pacemaker and is currently in paced rhythm with a rate consistently 70. Patient is not having any signs of coronary artery disease. Patient requires no further workup. Patient does not require monitoring on telemetry. Resume Eliquis as soon as possible after surgery per patient's area development manager. 5. Hypertension. Hold lisinopril and Lasix at this time. Continue metoprolol perioperatively. 6. History of hyponatremia. Check basic metabolic panel in the morning. Patient was hyponatremic preoperatively and is at risk for worsening hyponatremia. Fluids if patient becomes increasingly hyponatremic, possibly with fluid shift, should be with caution. 7. Anxiety. Supportive care. 8. Seasonal allergies causing intermittent cough. Continue Zyrtec daily. 9. DVT prophylaxis as above with Lovenox and then Eliquis. 10. FEN. Patient has fluids as above and regular diet. 11. Disposition per primary team. 12. Code status. The patient will like to be a full code. Patient's surrogate decision maker is her niece as above. TIME SPENT: Approximately 60 minutes were spent on this consultation, 30 of which was spent [id number] with the patient obtaining physical and history and discussing treatment plan. Plan was discussed with my attending Dr. Stacey Reese and she is in agreement. Thank you very much for this consult. JAMAR HANCOCK [id number]/[facility] #: [id number] [place]
[2017-11-23] MEDS: Magnesium Oxide TAB* 400 MG PO SCH (23:47)
[2017-11-23] MEDS: Docusate CAP* 100 MG PO SCH (23:47)
[2017-11-23] MEDS: Potassium Chlor TAB* 20 MEQ TAB.ER PO SCH (23:47)
[2017-11-23] MEDS: Acetaminophen TAB* 325 MG PO SCH (23:48)
[2017-11-23] MEDS: oxyCODONE TAB* 5 MG TAB PO PRN (23:50)
[2017-11-23] MEDS: Cyclobenzaprine TAB* 10 MG PO PRN (23:52)
[2017-11-23] MEDS: Metoprolol Tartrate TAB* 25 MG PO SCH (23:55)
[2017-11-23] MEDS: Magnesium Hydroxide LIQ* 30 ML UDC PO SCH (23:55)
[2017-11-23] MEDS: ceFAZolin 1 GM ADVAN(*) 1 GM in NS 0.9% 50 ML* 50 ML IVPB SCH (23:57)
[2017-11-24] MEDS: Acetaminophen TAB* 325 MG PO SCH ×3 (05:33→21:50)
[2017-11-24 06:12] LABS: Hematocrit 27 % (35-47); Hemoglobin 9.4 g/dl (12.0-16.0); Mean Platelet Volume 7.4 um3 (7.4-10.4); Platelet Count 203 10^3/ul (150-450)
[2017-11-24 06:26] LABS: EGFR Non-African American 95.2 (>60)
--- NOTE | 2017-11-24 07:33 | RAD ---
INDICATION: Postoperative left hip arthroplasty COMPARISON: Left hip November 10, 2017 TECHNIQUE: An AP portable view of the left hip to include the lower pelvis is submitted FINDINGS: Bones: There is completion of left hip arthroplasty.. Joint spaces: Left hip arthroplasty. The prosthesis appears normally seated.. Other: None IMPRESSION: THE LEFT HIP PROSTHESIS APPEARS NORMALLY SEATED
--- NOTE | 2017-11-24 07:34 | RAD ---
INDICATION: Left hip arthroplasty COMPARISON: November 10, 2017 TECHNIQUE: A portable view the pelvis is submitted FINDINGS: There is left hip arthroplasty. The prosthesis appears normally seated. There is advanced osteoarthritic change about the right hip. The SI joints and symphysis are intact. There are soft tissue changes compatible with recent left hip surgery IMPRESSION: LEFT HIP ARTHROPLASTY. THE PROSTHESIS APPEARS NORMALLY SEATED.
[2017-11-24] MEDS: ceFAZolin 1 GM ADVAN(*) 1 GM in NS 0.9% 50 ML* 50 ML IVPB SCH ×2 (07:54→16:46)
[2017-11-24] MEDS: Cetirizine* 10 MG TAB PO SCH (07:55)
[2017-11-24] MEDS: Magnesium Oxide TAB* 400 MG PO SCH ×2 (07:55→21:50)
[2017-11-24] MEDS: Magnesium Hydroxide LIQ* 30 ML UDC PO SCH ×2 (07:55→21:48)
[2017-11-24] MEDS: oxyCODONE TAB* 5 MG TAB PO PRN ×4 (07:55→21:51)
[2017-11-24] MEDS: Metoprolol Tartrate TAB* 25 MG PO SCH ×2 (07:55→21:50)
[2017-11-24] MEDS: Docusate CAP* 100 MG PO SCH ×2 (07:55→21:50)
[2017-11-24] MEDS ORDERED: NON FORMULARY MED* (Lisinopril [Lisinopril] 20 MG) PO SCH (09:00)
[2017-11-24] MEDS ORDERED: Enoxaparin(*) 40 MG/0.4 ML SYR SUBCUT SCH (12:00)
--- NOTE | 2017-11-24 12:26 | PN ---
Progress Note - Progress Note Date of Service: 11/24/17 SOAP: Subjective: [Pt seen sitting up in chair. She states she is doing quite well. Pain medication is helping significantly and pain is gone currently. She states she was able to walk with PT this am. She denies any chest pain, SOB, nausea or vomiting.] Objective: [General: A&O x3. NAD. MSK, LLE: Dressing is c/d/i. + df/pf. sensation intact to light touch. 2+ DP pulse. ] Vital Signs Temp 97.9 F 11/24/17 07:28 Pulse 70 11/24/17 07:28 Resp 16 11/24/17 12:18 BP 142/68 11/24/17 07:28 Pulse Ox 100 11/24/17 07:28 Intake & Output 11/23/17 11/24/17 11/24/17 18:59 06:59 18:59 Intake Total 1940 230 5571 Output Total 800 925 Balance 1100 65 2908 Weight 133 lb Intake: IV Fluids 1506 239 2499 LR 2131 lr 1900 500 IVPB 57 LR 57 Oral 490 720 Output: Lanza 800 925 Other: # Bowel Movements 0 Assessment: [POD 1 LTHA] Plan: [Continue current pain medication Continue with PT/OT Lovenox 40mg, Pt will restart her Elaquis ]
--- NOTE | 2017-11-24 14:35 | PN ---
Subjective Date of Service: 11/24/17 Interval History: Patient is in good spirits, pain well controlled with medication before PT. Denies CP, SOB, N/V, abdominal pain, F/C, abdominal pain, diarrhea. Patient is not passing gas but is urinating today. Patient is anxious to get to [facility] if possible to begin PT/OT. Family History: Unchanged from Admission Social History: Unchanged from Admission Past Medical History: Unchanged from Admission Objective Active Medications: Acetaminophen (Tylenol Tab*) 975 mg PO Q8HR [facility] Last Admin: 11/24/17 05:33 Dose: 975 mg Apixaban (Eliquis) 2.5 mg PO BID [facility] Bisacodyl (Dulcolax Supp*) 10 mg MD DAILY PRN PRN Reason: constipation Cetirizine HCl (Zyrtec*) 10 mg PO QAM [facility]; Protocol Last Admin: 11/24/17 07:55 Dose: 10 mg Cyclobenzaprine HCl (Flexeril Tab*) 5 mg PO TID PRN PRN Reason: SPASMS Last Admin: 11/23/17 23:52 Dose: 5 mg Diphenhydramine HCl (Benadryl Iv*) 25 mg IV Q6H PRN PRN Reason: itching Diphenhydramine HCl (Benadryl Po*) 25 mg PO Q6H PRN PRN Reason: itching Docusate Sodium (Colace Cap*) 100 mg PO BID [facility] Last Admin: 11/24/17 07:55 Dose: 100 mg Enoxaparin Sodium (Lovenox(*)) 40 mg SUBCUT Q24H [facility] Last Admin: 11/24/17 12:18 Dose: 40 mg Cefazolin Sodium 1 gm/ Sodium (Chloride) 50 mls @ 200 mls/hr IVPB Q8H [facility] Stop: 11/24/17 16:14 Last Admin: 11/24/17 07:54 Dose: 200 mls/hr Lactated Ringer's (Lactated Ringers 1000 Ml Bag*) 1,000 mls @ 100 mls/hr IV PER RATE [facility] Last Admin: 11/24/17 07:31 Dose: 100 mls/hr Lactulose (Lactulose*) 30 ml PO Q6H PRN PRN Reason: constipation Magnesium Hydroxide (Milk Of Magnesia Liq*) 30 ml PO BID [facility] Last Admin: 11/24/17 07:55 Dose: 30 ml Magnesium Hydroxide (Milk Of Magnesia Liq*) 30 ml PO Q6H PRN PRN Reason: constipation Magnesium Oxide (Magox 400 Tab*) 400 mg PO BID [facility] Last Admin: 11/24/17 07:55 Dose: 400 mg Metoprolol Tartrate (Lopressor Tab*) 25 mg PO BID [facility] Last Admin: 11/24/17 07:55 Dose: 25 mg Morphine Sulfate (Morphine Inj ((Syringe))*) 2 mg IV Q2H PRN PRN Reason: PAIN - SEVERE Ondansetron HCl (Zofran Inj*) 4 mg IV Q6H PRN PRN Reason: nausea Ondansetron HCl (Zofran Odt Tab*) 4 mg PO Q6H PRN PRN Reason: NAUSEA Oxycodone HCl (Roxycodone Tab*) 10 mg PO Q4H PRN PRN Reason: PAIN Last Admin: 11/24/17 12:18 Dose: 10 mg Oxycodone/Acetaminophen (Percocet 5/325 Tab*) 1 tab PO Q4H PRN PRN Reason: PAIN Oxycodone/Acetaminophen (Percocet 5/325 Tab*) 2 tab PO Q4H PRN PRN Reason: PAIN Polyethylene Glycol/Electrolytes (Miralax*) 17 gm PO DAILY PRN PRN Reason: Constipation Potassium Chloride (Klor Con Er Tab*) 20 meq PO QPM [facility] Last Admin: 11/23/17 23:47 Dose: 20 meq Temazepam (Restoril Cap*) 15 mg PO BEDTIME PRN PRN Reason: INSOMNIA Tramadol HCl (Ultram*) 50 mg PO Q6H PRN PRN Reason: PAIN Vital Signs - 8 hr 11/24/17 11/24/17 11/24/17 07:28 07:30 07:55 Temperature 97.9 F Pulse Rate 70 Respiratory 16 16 16 Rate Blood Pressure 142/68 (mmHg) O2 Sat by Pulse 100 Oximetry 11/24/17 12:18 Temperature Pulse Rate Respiratory 16 Rate Blood Pressure (mmHg) O2 Sat by Pulse Oximetry Oxygen Devices in Use Now: None Appearance: Patient is an 86yo female who appears stated age and is sitting in the bed in [facility]. Eyes: No Scleral Icterus, PERRLA Ears/Nose/Mouth/Throat: NL Teeth, Lips, Gums, Clear Oropharnyx, Mucous Membranes Moist Neck: NL Appearance and Movements; NL JVP, Trachea Midline Respiratory: Symmetrical Chest Expansion and Respiratory Effort, Clear to Auscultation Cardiovascular: NL Sounds; No Murmurs; No JVD, RRR, No Edema Abdominal: NL Sounds; No Tenderness; No Distention, No Hepatosplenomegaly Lymphatic: No Cervical Adenopathy Extremities: No Edema, No Clubbing, Cyanosis Skin: No Nodules or Sclerosis, - - Left hip surgical incision covered with bulky dressing. Neurological: Alert and Oriented x 3, NL Sensation, NL Muscle Strength and Tone , - - CN II-XII intact. Result Diagrams: 11/24/17 05:10 11/24/17 05:10 Assess/Plan/Problems-Billing Assessment: Patient is an 86yo female with a PMH for Atrial Fibrillation with AV blayne ablation and permanent pacemaker implantation, HTN, Anxiety, who is S/P LTHA and is doing well. - Patient Problems (1) Post-operative state Current Visit: Yes Status: Acute Code(s): Z98.890 - OTHER SPECIFIED POSTPROCEDURAL STATES SNOMED Code(s): 36781947 Comment: S/P LTHA, Management per primary team. H/H significantly decreased, continue to monitor. PT/OT, pain control, bowel regimen. (2) Afib Current Visit: No Status: Acute Code(s): I48.91 - UNSPECIFIED ATRIAL FIBRILLATION SNOMED Code(s): 35182316 Comment: History of Afib, S/P AV blayne ablation and permanent pacemake implantation. Rate consistently at 70bpm. Resume eliquis when H/H stabilized (3) Hypertension Current Visit: No Status: Acute Code(s): I10 - ESSENTIAL (PRIMARY) HYPERTENSION SNOMED Code(s): 96465390 Comment: Normotensive. Continue Metoprolol. Resume Lisinopril when able. (4) Hyponatremia Current Visit: No Status: Acute Code(s): E87.1 - HYPO-OSMOLALITY AND HYPONATREMIA SNOMED Code(s): 48123567 Comment: Chronic. Daily BMP postoperatively due to possibility of Post-operative SIADH. (5) DVT prophylaxis Current Visit: No Status: Acute Code(s): UAW7180 - SNOMED Code(s): 396099659 Comment: Lovenox. Resume eliquis when able. (6) Full code status Current Visit: No Status: Acute Code(s): Z78.9 - OTHER SPECIFIED HEALTH STATUS SNOMED Code(s): 268560558 Status and Disposition: Inpatient, disposition per ortho.
[2017-11-24] MEDS: Potassium Chlor TAB* 20 MEQ TAB.ER PO SCH (16:45)
--- NOTE | 2017-11-24 18:58 | OP ---
OPERATIVE NOTE: DATE OF OPERATION: 11/23/17 DATE OF : 34 ATTENDING SURGEON: Criss Kim MD KAYAK MAKER: JAMAR Hurd Mr. Green did help throughout the procedure with preparation of the leg, wound retraction, manipulation of the hip and wound closure. ANESTHESIOLOGIST: Dr. Ferris ANESTHESIA: Spinal. PRE-OP DIAGNOSIS: Severe end-stage degenerative osteoarthritis of the left hip with a vascular necrosis of the femoral head. POST-OP DIAGNOSIS: Severe end-stage degenerative osteoarthritis of the left hip with a vascular necrosis of the femoral head. OPERATIVE PROCEDURE: Left total hip arthroplasty. BRIEF HISTORY/INDICATIONS: Ms. Brown is an 86-year-old female with years of increasingly severe left hip pain. Radiograph showed dilt-vm-stuw arthritis. 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 She failed conservative treatment with antiinflammatories, pain medication, intraarticular injections, and physical therapy. Due to continued pain and decreased quality of life, she elected to undergo left total hip arthroplasty. Informed consent was obtained from the patient. She was aware that the risks of surgery included, but were not limited to bleeding, infection, damage to nearby structures, continued pain, need for further surgery, intraoperative fracture, nerve palsy, hardware failure or loosening, dislocation, leg-length discrepancy, stroke, heart attack, blood clot, and . She wished to proceed. COMPLICATIONS: None. SPECIMEN: Femoral head and acetabular reaming sent to Pathology. ESTIMATED BLOOD LOSS: 250 cc. HARDWARE USED: This is uncemented Heike total hip arthroplasty hardware. For the cup, a Tritanium cluster hole shell 52B two screws of length 20 mm were used in the superoposterior quadrant. For the liner, a Trident X3 0-degree polyethylene insert, 36 B. For the stem, an Accolade TMZF size 4.5 with 132- degree neck angle. For the head, a Biolox delta ceramic V40 femoral head 36-2.5. INTRAOPERATIVE FINDINGS: Intraoperatively, the patient had severe end-stage arthritis. She had extensive synovitis around the entire hip joint. She had subchondral collapse of the femoral head. She had extensive osteophyte formation along the acetabulum. She also was noted to have severe osteopenia. DESCRIPTION OF PROCEDURE: Ms. Brown was identified in the preanesthesia unit. Her left lower extremity was marked as the correct operative side. Informed consent was signed and placed in the chart. The patient was taken to the operating room and placed under spinal anesthesia. A Lanza catheter was placed. The patient was placed in the right lateral decubitus position on the pegboard. All bony prominences were well padded. Left lower extremity was prepped and draped in the usual sterile fashion. Preop time-out was made to correctly identify the patient's side and site. Appropriate perioperative antibiotics were given within 1 hour of incision. A 10 cm posterior hip incision was made with the 10 blade and carried down to the lateral fascial layer. The lateral fascial layer was incised in line with the skin incision. A Charnley retractor was placed. The piriformis and conjoint tendons were identified and elevated off the posterolateral femur using electrocautery. These were tagged with #5 Ethibond. Electrocautery was then used to make a standard posterolateral capsular flap and this was also tagged with #5 Ethibond. The hip was carefully dislocated. Lesser troch to center of the femoral head was estimated at 55 mm. Oscillating saw was used to make the femoral neck cut and the femoral head was removed. The femur was retracted anteriorly. After appropriate placement of retractors, the acetabulum was well visualized. A long-handled knife was used to sharply remove any remaining labrum from the acetabular rim. The acetabulum was sequentially reamed up to a size 51 reamer. A bleeding subchondral bone bed was obtained. A 51 trial had good fit. A 51 trial was removed. Final implant chosen was a 52 E Tritanium cluster hole shell. This was impacted into the acetabulum without difficulty. There was excellent stability with appropriate anteversion and abduction angle. Two 20 mm screws were placed in the superoposterior quadrant for extra stability. The patient was noted to have significant osteopenia. The liner chosen was a Trident X3 0-degree polyethylene insert 36 B. This was impacted into the acetabulum. Stability of the insert was checked and rechecked and noted to be stable. Attention was next turned to preparation of the femoral canal. A canal finder was used to enter the femur. The femur was sequentially broached up to a size 4.5. A 4.5 broach had excellent stability and appropriate anteversion. A 132 neck trial was chosen with 36+0 head trial. Lesser troch to center of the femoral head measured 57 mm, therefore a -2.5 head was chosen. Lesser troch to center of the femoral head measured 55 mm. The hip was reduced and taken through a range of motion. The hip was stable in all positions. There was good soft tissue tension and appropriate leg lengths. The hip was carefully dislocated. All trials were removed. Final implant chosen was an Accolade TMZF size 4.5 with 132-degree neck angle. The head chosen was a Biolox ceramic V40 femoral head 36-2.5. This was impacted into the femoral canal without difficulty. There was excellent stability and good anteversion. The head was impacted onto the femoral neck. The hip was reduced then taken through a range of motion. The hip was stable in all positions. The hip was copiously irrigated with sterile saline. Previously tagged capsule and tendons were reapproximated to the posterolateral femur through 2 trochanteric drill holes. Lateral fascial layer was closed using interrupted # 1 Vicryl. The rest of the incision was closed in a layered fashion using 0 and 2-0 Vicryl. Skin was closed using running Monocryl and Dermabond. The patient's incision was covered with Adaptic, 4x4s, and paper tape. Her anesthesia was reversed without difficulty. She was taken to the PACU in stable condition. Intended weightbearing will be weightbearing as tolerated. Intended DVT prophylaxis will be Coumadin with a Lovenox bridge. [id number]/[facility] #: [id number] [place]
[2017-11-24] MEDS: Apixaban* 2.5 MG TAB PO SCH (21:50)
[2017-11-25] MEDS: Ondansetron ODT TAB* 4 MG PO PRN (05:02)
[2017-11-25 05:58] LABS: Hematocrit 24 % (35-47); Hemoglobin 8.3 g/dl (12.0-16.0); Mean Platelet Volume 7.4 um3 (7.4-10.4); Platelet Count 245 10^3/ul (150-450)
[2017-11-25] MEDS: oxyCODONE TAB* 5 MG TAB PO PRN (06:13)
[2017-11-25] MEDS: Acetaminophen TAB* 325 MG PO SCH ×3 (06:13→22:41)
[2017-11-25 06:27] LABS: EGFR Non-African American 65.5 (>60)
[2017-11-25] MEDS: Ondansetron INJ* 2 MG/ML VIAL IV PRN ×2 (08:24→22:36)
[2017-11-25] MEDS: Scopolamine 1.5 mg* PATCH TRANSDERM SCH (08:26)
[2017-11-25] MEDS: Magnesium Oxide TAB* 400 MG PO SCH ×2 (10:35→22:45)
[2017-11-25] MEDS: Docusate CAP* 100 MG PO SCH ×2 (10:35→19:56)
[2017-11-25] MEDS: Magnesium Hydroxide LIQ* 30 ML UDC PO SCH ×2 (10:35→19:56)
[2017-11-25] MEDS: Cetirizine* 10 MG TAB PO SCH (10:35)
[2017-11-25] MEDS: Apixaban* 2.5 MG TAB PO SCH ×2 (10:35→23:04)
[2017-11-25] MEDS: Metoprolol Tartrate TAB* 25 MG PO SCH ×2 (10:36→22:45)
--- NOTE | 2017-11-25 11:19 | PN ---
Progress Note - Progress Note Date of Service: 11/25/17 SOAP: Subjective: [Pt reports nausea this morning. Some vomiting. PO pain meds managing L hip pain. Denies CP, SOB. C/O mild dizziness] Objective: [A and O x 3. Seated in chair feeling like she has to vomit. Nurse in room L hip dressing C/D/I - did not change today. WIll change tomorrow. Calves sof , NT. Distal gross motor and NV function intact Vital Signs: Temp Pulse Resp BP Pulse Ox 97.9 F 70 16 93/52 96 11/25/17 07:34 11/25/17 07:34 11/25/17 08:29 11/25/17 07:34 11/25/17 08:00 Laboratory Results - last 24 hr 11/25/17 11/25/17 05:39 05:39 Hgb 8.3 L Hct 24 L Plt Count 245 MPV 7.4 Sodium 121 L Potassium 4.5 Chloride 87 L Carbon Dioxide 28 Anion Gap 6 BUN 18 Creatinine 0.83 Est GFR ( Amer) 79.2 Est GFR (Non-Af Amer) 65.5 BUN/Creatinine Ratio 21.7 H Glucose 129 H Calcium 8.5 L Upon recheck patient is sleeping in chair.] Assessment: [s/p L COURTNEY POD# 2] Plan: [Pt has received Zofran for nausea Con't PT/OT Con't pain management Will be restarting her Eliquis for DVT prophylaxis]
[2017-11-25] MEDS: traMADol TAB* 50 MG PO PRN ×2 (11:28→17:48)
[2017-11-25] MEDS ORDERED: NS 0.9% 1000 ML* 1,000 ML IV SCH ×2 (15:00→15:07)
[2017-11-25] MEDS ORDERED: Iron Sucrose* 200 MG in NS 0.9% 100 ML* 100 ML IVPB ONE (15:05)
--- NOTE | 2017-11-25 15:12 | PN ---
Subjective Date of Service: 11/25/17 Interval History: Patient has had nausea today, no real vomiting. Nausea and lethargy interfering w/ eating anything, taking meds, or participating with PT. Denies pain LT hip. Has pain w/ weight bearing. Family History: Unchanged from Admission Social History: Unchanged from Admission Past Medical History: Unchanged from Admission Objective Active Medications: Acetaminophen (Tylenol Tab*) 975 mg PO Q8HR [facility] Last Admin: 11/25/17 06:13 Dose: 975 mg Apixaban (Eliquis) 2.5 mg PO BID [facility] Last Admin: 11/25/17 10:35 Dose: Not Given Bisacodyl (Dulcolax Supp*) 10 mg [place] DAILY PRN PRN Reason: constipation Cetirizine HCl (Zyrtec*) 10 mg PO QAM [facility]; Protocol Last Admin: 11/25/17 10:35 Dose: Not Given Cyclobenzaprine HCl (Flexeril Tab*) 5 mg PO TID PRN PRN Reason: SPASMS Last Admin: 11/23/17 23:52 Dose: 5 mg Diphenhydramine HCl (Benadryl Iv*) 25 mg IV Q6H PRN PRN Reason: itching Diphenhydramine HCl (Benadryl Po*) 25 mg PO Q6H PRN PRN Reason: itching Docusate Sodium (Colace Cap*) 100 mg PO BID [facility] Last Admin: 11/25/17 10:35 Dose: Not Given Lactulose (Lactulose*) 30 ml PO Q6H PRN PRN Reason: constipation Magnesium Hydroxide (Milk Of Magnesia Liq*) 30 ml PO BID [facility] Last Admin: 11/25/17 10:35 Dose: Not Given Magnesium Hydroxide (Milk Of Magnesia Liq*) 30 ml PO Q6H PRN PRN Reason: constipation Magnesium Oxide (Magox 400 Tab*) 400 mg PO BID [facility] Last Admin: 11/25/17 10:35 Dose: Not Given Metoprolol Tartrate (Lopressor Tab*) 25 mg PO BID [facility] Last Admin: 11/25/17 10:36 Dose: Not Given Morphine Sulfate (Morphine Inj ((Syringe))*) 2 mg IV Q2H PRN PRN Reason: PAIN - SEVERE Ondansetron HCl (Zofran Inj*) 4 mg IV Q6H PRN PRN Reason: nausea Last Admin: 11/25/17 08:24 Dose: 4 mg Ondansetron HCl (Zofran Odt Tab*) 4 mg PO Q6H PRN PRN Reason: NAUSEA Last Admin: 11/25/17 05:02 Dose: 4 mg Oxycodone HCl (Roxycodone Tab*) 10 mg PO Q4H PRN PRN Reason: PAIN Last Admin: 11/25/17 06:13 Dose: 10 mg Oxycodone/Acetaminophen (Percocet 5/325 Tab*) 1 tab PO Q4H PRN PRN Reason: PAIN Oxycodone/Acetaminophen (Percocet 5/325 Tab*) 2 tab PO Q4H PRN PRN Reason: PAIN Polyethylene Glycol/Electrolytes (Miralax*) 17 gm PO DAILY PRN PRN Reason: Constipation Potassium Chloride (Klor Con Er Tab*) 20 meq PO QPM JUNIOR Last Admin: 11/24/17 16:45 Dose: 20 meq Scopolamine (Transderm-Scop 1.5 Mg Patch*) 1 patch TRANSDERM Q72H JUNIOR Last Admin: 11/25/17 08:26 Dose: 1 patch Temazepam (Restoril Cap*) 15 mg PO BEDTIME PRN PRN Reason: INSOMNIA Tramadol HCl (Ultram*) 50 mg PO Q6H PRN PRN Reason: PAIN Last Admin: 11/25/17 11:28 Dose: 50 mg Vital Signs - 8 hr 11/25/17 11/25/17 11/25/17 07:34 08:00 08:29 Temperature 36.6 C Pulse Rate 70 Respiratory 16 16 16 Rate Blood Pressure 93/52 (mmHg) O2 Sat by Pulse 96 96 Oximetry 11/25/17 11/25/17 11:24 11:28 Temperature 36.6 C Pulse Rate 70 Respiratory 16 16 Rate Blood Pressure 126/57 (mmHg) O2 Sat by Pulse 98 Oximetry Oxygen Devices in Use Now: None Appearance: sleeping, alert after arousal Eyes: No Scleral Icterus Ears/Nose/Mouth/Throat: Clear Oropharnyx Neck: No Thyroid Enlargement, Masses Respiratory: Clear to Auscultation Cardiovascular: NL Sounds; No Murmurs; No JVD, RRR Abdominal: NL Sounds; No Tenderness; No Distention, No Hepatosplenomegaly Extremities: No Edema, - - LT hip bandage C/D/I Neurological: Alert and Oriented x 3 Lines/Tubes/Other Access: Clean, Dry and Intact Peripheral IV Nutrition: Taking PO's Result Diagrams: 11/25/17 05:39 11/25/17 05:39 Assess/Plan/Problems-Billing Assessment: Patient is an 86yo female with a PMH for Atrial Fibrillation with history of permanent pacemaker implantation, HTN, Anxiety, who is S/P LT total hip. 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 - check urine sodium, serum osm, and repeat BMP this afternoon after saline infusion - may need free water restriction. (2) Anemia Current Visit: Yes Status: Acute Priority: Medium Code(s): D64.9 - ANEMIA , UNSPECIFIED SNOMED Code(s): 442749690 Comment: - likely due to recently surgery, blood loss - not taking POs, will give 1 dose IV iron - monitor daily, for need of transfusion. (3) Afib Current Visit: No Status: Acute Priority: Medium Code(s): I48.91 - UNSPECIFIED ATRIAL FIBRILLATION SNOMED Code(s): 34793341 Comment: - History of Afib, S/P AV lbayne ablation and permanent pacemaker implantation. - Rate consistently at 70bpm. - on eliquis (4) DVT prophylaxis Current Visit: No Status: Acute Priority: Low Code(s): KAQ9061 - SNOMED Code(s): 701182230 Comment: -Eliquis Status and Disposition: Inpatient, disposition to PMRU once medically improving and ortho agrees.
[2017-11-25 17:12] LABS: EGFR Non-African American 79.7 (>60)
[2017-11-25] MEDS ORDERED: Sodium Chloride 3% HYPERTONIC* 500 ML IVPB ONE ×2 (17:29)
--- NOTE | 2017-11-25 17:43 | PN ---
Progress Note - Progress Note Date of Service: 11/25/17 Note: Event note: Patient has sodium 116. She is lethargic, but conversant. Calculated deficit of sodium at 648 mEq. Some of this is acute, due to SIADH, post-op. Followed pharmacy protocol for calculating drip rate, but will give 100 ml initially as bolus. Transferred to ICU for closer monitoring.
[2017-11-25] MEDS: Potassium Chlor TAB* 20 MEQ TAB.ER PO SCH (17:48)
[2017-11-26 03:30] LABS: Hematocrit 21 % (35-47); Hemoglobin 7.3 g/dl (12.0-16.0); Mean Platelet Volume 7.8 um3 (7.4-10.4); Platelet Count 167 10^3/ul (150-450)
[2017-11-26 06:00] LABS: ABS Basophils 0 10^3/ul (0-0.2); ABS Eosinophils 0.1 10^3/ul (0-0.6); ABS Lymphocytes 0.6 10^3/ul (1.0-4.8); ABS Monocytes 0.7 10^3/ul (0-0.8); ABS Nucleated RBC 0 10^3/ul; Hematocrit 22 % (35-47); Hemoglobin 7.4 g/dl (12.0-16.0); Lymphocyte % 11.1 % (25-47); Mean Corpuscular HGB Conc 34 g/dl (31-36); Mean Corpuscular Hemoglobin 30 pg (27-31); Mean Corpuscular Volume 87 fL (80-97); Mean Platelet Volume 7.6 um3 (7.4-10.4); Nucleated Red Blood Cells % 0; Platelet Count 174 10^3/ul (150-450); Red Blood Count 2.47 10^6/ul (4.00-5.40); Red Cell Distribution Width 13 % (10.5-15); White Blood Count 5.4 10^3/ul (3.5-10.8)
[2017-11-26] MEDS: Acetaminophen TAB* 325 MG PO SCH ×3 (07:50→20:31)
[2017-11-26] MEDS: Cetirizine* 10 MG TAB PO SCH (08:48)
[2017-11-26] MEDS: Metoprolol Tartrate TAB* 25 MG PO SCH ×2 (08:48→20:31)
[2017-11-26] MEDS: Ondansetron ODT TAB* 4 MG PO PRN (08:48)
[2017-11-26] MEDS: Apixaban* 2.5 MG TAB PO SCH ×2 (08:49→20:31)
[2017-11-26] MEDS: Docusate CAP* 100 MG PO SCH ×2 (09:45→20:31)
[2017-11-26] MEDS: Magnesium Hydroxide LIQ* 30 ML UDC PO SCH ×2 (09:45→20:26)
--- NOTE | 2017-11-26 11:35 | PN ---
Progress Note - Progress Note Date of Service: 11/26/17 SOAP: Subjective: [Pt returned from ICU to [facility]. Had been transferred last night due to low sodium level. Reports feeling better as far as nausea is concerned. Mild/ moderate pain L hip. Has not yet worked with PT. Denies CP, SOB, dizziness.] Objective: [Alert, some difficulty with slurring words - recently administered pain meds, NAD. Seated in chair sleeping on and off. L hip dressing changed. Wound benign. No drainage or erythema. Calf soft, NT. Distal gross motor and NV function intact. Vital Signs: Temp Pulse Resp BP Pulse Ox 98.4 F 83 16 104/77 95 11/26/17 10:37 11/26/17 10:37 11/26/17 10:37 11/26/17 10:37 11/26/17 10:37 Laboratory Results - last 24 hr 11/25/17 11/25/17 11/25/17 05:39 15:46 16:51 WBC RBC Hgb Hct MCV MCH MCHC RDW Plt Count MPV Neut % (Auto) Lymph % (Auto) King % (Auto) Eos % (Auto) Baso % (Auto) Absolute Neuts (auto) Absolute Lymphs (auto) Absolute Monos (auto) Absolute Eos (auto) Absolute Basos (auto) Absolute Nucleated RBC Nucleated RBC % Sodium 116 L* Potassium 4.9 Chloride 89 L Carbon Dioxide 23 Anion Gap 4 BUN 18 Creatinine 0.70 Est GFR ( Amer) 96.5 Est GFR (Non-Af Amer) 79.7 BUN/Creatinine Ratio 25.7 H Glucose 113 H Serum Osmolality Calcium 7.7 L TSH 7.85 H Free T4 1.61 H Cortisol 10.19 Urine Osmolality Ur Random Sodium < 18 11/25/17 11/26/17 11/26/17 20:45 00:10 00:10 WBC RBC Hgb Hct MCV MCH MCHC RDW Plt Count MPV Neut % (Auto) Lymph % (Auto) King % (Auto) Eos % (Auto) Baso % (Auto) Absolute Neuts (auto) Absolute Lymphs (auto) Absolute Monos (auto) Absolute Eos (auto) Absolute Basos (auto) Absolute Nucleated RBC Nucleated RBC % Sodium 117 L* 121 L Potassium Chloride Carbon Dioxide Anion Gap BUN Creatinine Est GFR ( Amer) Est GFR (Non-Af Amer) BUN/Creatinine Ratio Glucose Serum Osmolality 260 L Calcium TSH Free T4 Cortisol Urine Osmolality Ur Random Sodium 11/26/17 11/26/17 11/26/17 03:10 03:10 05:42 WBC 5.4 RBC 2.47 L Hgb 7.3 L 7.4 L Hct 21 L 22 L MCV 87 MCH 30 MCHC 34 RDW 13 Plt Count 167 174 MPV 7.8 7.6 Neut % (Auto) 74.5 Lymph % (Auto) 11.1 L King % (Auto) 13.0 H Eos % (Auto) 1.0 Baso % (Auto) 0.4 Absolute Neuts (auto) 4.0 Absolute Lymphs (auto) 0.6 L Absolute Monos (auto) 0.7 Absolute Eos (auto) 0.1 Absolute Basos (auto) 0 Absolute Nucleated RBC 0 Nucleated RBC % 0 Sodium 120 L Potassium Chloride Carbon Dioxide Anion Gap BUN Creatinine Est GFR ( Amer) Est GFR (Non-Af Amer) BUN/Creatinine Ratio Glucose Serum Osmolality Calcium TSH Free T4 Cortisol Urine Osmolality Ur Random Sodium 11/26/17 11/26/17 11/26/17 05:42 06:20 06:20 WBC RBC Hgb Hct MCV MCH MCHC RDW Plt Count MPV Neut % (Auto) Lymph % (Auto) King % (Auto) Eos % (Auto) Baso % (Auto) Absolute Neuts (auto) Absolute Lymphs (auto) Absolute Monos (auto) Absolute Eos (auto) Absolute Basos (auto) Absolute Nucleated RBC Nucleated RBC % Sodium 121 L Potassium 5.0 Chloride 92 L Carbon Dioxide 27 Anion Gap 2 BUN 12 Creatinine 0.63 Est GFR ( Amer) 108.9 Est GFR (Non-Af Amer) 90.0 BUN/Creatinine Ratio 19.0 Glucose 98 Serum Osmolality Calcium 8.2 L TSH Free T4 Cortisol Urine Osmolality 292 Ur Random Sodium < 18 ] Assessment: [s/p L COURTNEY POD # 3] Plan: [PT/OT - WBAT L LE Pain management Eliquis for DVT prophylaxis To PMRU once medically and orthopedically stable ]
[2017-11-26] MEDS: Magnesium Oxide TAB* 400 MG PO SCH ×2 (12:02→20:31)
--- NOTE | 2017-11-26 16:25 | PN ---
Subjective Date of Service: 11/26/17 Interval History: Patient much less nauseated today. Was able to participate in PT. Tolerated hypertonic saline infusions overnight in ICU, now back on [facility]. Pain moderate LT hip. Family History: Unchanged from Admission Social History: Unchanged from Admission Past Medical History: Unchanged from Admission Objective Active Medications: Acetaminophen (Tylenol Tab*) 975 mg PO Q8HR [facility] Last Admin: 11/26/17 14:27 Dose: 975 mg Apixaban (Eliquis) 2.5 mg PO BID [facility] Last Admin: 11/26/17 08:49 Dose: 2.5 mg Bisacodyl (Dulcolax Supp*) 10 mg [place] DAILY PRN PRN Reason: constipation Cetirizine HCl (Zyrtec*) 10 mg PO QAM [facility]; Protocol Last Admin: 11/26/17 08:48 Dose: 10 mg Cyclobenzaprine HCl (Flexeril Tab*) 5 mg PO TID PRN PRN Reason: SPASMS Last Admin: 11/23/17 23:52 Dose: 5 mg Diphenhydramine HCl (Benadryl Iv*) 25 mg IV Q6H PRN PRN Reason: itching Diphenhydramine HCl (Benadryl Po*) 25 mg PO Q6H PRN PRN Reason: itching Docusate Sodium (Colace Cap*) 100 mg PO BID [facility] Last Admin: 11/26/17 09:45 Dose: Not Given Lactulose (Lactulose*) 30 ml PO Q6H PRN PRN Reason: constipation Magnesium Hydroxide (Milk Of Magnesia Liq*) 30 ml PO BID [facility] Last Admin: 11/26/17 09:45 Dose: Not Given Magnesium Hydroxide (Milk Of Magnesia Liq*) 30 ml PO Q6H PRN PRN Reason: constipation Magnesium Oxide (Magox 400 Tab*) 400 mg PO BID [facility] Last Admin: 11/26/17 12:02 Dose: Not Given Metoprolol Tartrate (Lopressor Tab*) 25 mg PO BID [facility] Last Admin: 11/26/17 08:48 Dose: 25 mg Morphine Sulfate (Morphine Inj ((Syringe))*) 2 mg IV Q2H PRN PRN Reason: PAIN - SEVERE Last Admin: 11/25/17 22:38 Dose: 2 mg Ondansetron HCl (Zofran Inj*) 4 mg IV Q6H PRN PRN Reason: nausea Last Admin: 11/25/17 22:36 Dose: 4 mg Ondansetron HCl (Zofran Odt Tab*) 4 mg PO Q6H PRN PRN Reason: NAUSEA Last Admin: 11/26/17 08:48 Dose: 4 mg Oxycodone HCl (Roxycodone Tab*) 10 mg PO Q4H PRN PRN Reason: PAIN Last Admin: 11/25/17 06:13 Dose: 10 mg Oxycodone/Acetaminophen (Percocet 5/325 Tab*) 1 tab PO Q4H PRN PRN Reason: PAIN Last Admin: 11/26/17 08:48 Dose: 1 tab Oxycodone/Acetaminophen (Percocet 5/325 Tab*) 2 tab PO Q4H PRN PRN Reason: PAIN Pharmacy Profile Note (Scopolamine Patch Remove*) 1 note PATCH OFF Q72H JUNIOR Polyethylene Glycol/Electrolytes (Miralax*) 17 gm PO DAILY PRN PRN Reason: Constipation Potassium Chloride (Klor Con Er Tab*) 20 meq PO QPM JUNIOR Last Admin: 11/25/17 17:48 Dose: 20 meq Scopolamine (Transderm-Scop 1.5 Mg Patch*) 1 patch TRANSDERM Q72H JUNIOR Last Admin: 11/25/17 08:26 Dose: 1 patch Temazepam (Restoril Cap*) 15 mg PO BEDTIME PRN PRN Reason: INSOMNIA Tramadol HCl (Ultram*) 50 mg PO Q6H PRN PRN Reason: PAIN Last Admin: 11/25/17 17:48 Dose: 50 mg Vital Signs - 8 hr 11/26/17 11/26/17 11/26/17 09:01 09:30 10:13 Temperature Pulse Rate 70 70 Respiratory 21 11 16 Rate Blood Pressure 136/65 120/65 (mmHg) O2 Sat by Pulse 98 89 Oximetry 11/26/17 11/26/17 10:20 10:37 Temperature 36.9 C 36.9 C Pulse Rate 83 83 Respiratory 16 16 Rate Blood Pressure 104/77 104/77 (mmHg) O2 Sat by Pulse 95 95 Oximetry Oxygen Devices in Use Now: None Appearance: alert, conversant Neck: No Thyroid Enlargement, Masses Respiratory: Clear to Auscultation Cardiovascular: NL Sounds; No Murmurs; No JVD, RRR Abdominal: NL Sounds; No Tenderness; No Distention, No Hepatosplenomegaly Extremities: No Edema Neurological: - - alert, oriented to place, but confused, talking about [place], her mother Lines/Tubes/Other Access: Clean, Dry and Intact Peripheral IV Nutrition: Taking PO's Result Diagrams: 11/26/17 05:42 11/26/17 11:58 Microbiology and Other Data: Microbiology 11/25/17 19:30 Nasal Screen MRSA (PCR) - Final Nasal Mrsa Not Detected Assess/Plan/Problems-Billing Assessment: Patient is an 86yo female with a PMH for Atrial Fibrillation with history of permanent pacemaker implantation, HTN, Anxiety, who is S/P LT total hip, 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 - Patient Problems (1) Hyponatremia Current Visit: No Status: Acute Priority: High Code(s): E87.1 - HYPO- OSMOLALITY AND HYPONATREMIA SNOMED Code(s): 57094347 Comment: - hyponatremia was mod-severe, causing lethargy, nausea, now improved w/ hypertonic saline. 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 - lab work confirms hypo-osmolar hyponatremia, with little sodium in urine. - should improve w/ fluid restriction. (2) Anemia Current Visit: Yes Status: Acute Priority: Medium Code(s): D64.9 - ANEMIA , UNSPECIFIED SNOMED Code(s): 557840332 Comment: - likely due to recently surgery, blood loss - not taking POs well, will give 1 dose IV iron - monitor daily, may need transfusion. (3) Afib Current Visit: No Status: Acute Priority: Medium Code(s): I48.91 - UNSPECIFIED ATRIAL FIBRILLATION SNOMED Code(s): 27028064 Comment: - History of Afib, S/P AV blayne ablation and permanent pacemaker implantation. - Rate consistently at 70bpm. - on eliquis (4) DVT prophylaxis Current Visit: No Status: Acute Priority: Low Code(s): LIQ3191 - SNOMED Code(s): 192596899 Comment: -Eliquis Status and Disposition: Inpatient, disposition to PMRU once medically improving and ortho agrees.
[2017-11-26] MEDS: Potassium Chlor TAB* 20 MEQ TAB.ER PO SCH (17:30)
[2017-11-27] MEDS: Acetaminophen TAB* 325 MG PO SCH ×3 (05:41→21:59)
[2017-11-27 06:26] LABS: EGFR Non-African American 78.4 (>60)
[2017-11-27] MEDS: Magnesium Oxide TAB* 400 MG PO SCH ×2 (07:38→19:56)
[2017-11-27] MEDS: Metoprolol Tartrate TAB* 25 MG PO SCH ×2 (07:39→19:56)
[2017-11-27] MEDS: Magnesium Hydroxide LIQ* 30 ML UDC PO SCH ×2 (07:39→19:57)
[2017-11-27] MEDS: Docusate CAP* 100 MG PO SCH ×2 (07:39→19:56)
[2017-11-27] MEDS: Apixaban* 2.5 MG TAB PO SCH ×2 (07:39→19:56)
[2017-11-27] MEDS: Cetirizine* 10 MG TAB PO SCH (07:39)
--- NOTE | 2017-11-27 10:27 | PN ---
Subjective Date of Service: 11/27/17 Interval History: Feels okay this morning. No pain. No fevers. No overnight events reported. Family History: Unchanged from Admission Social History: Unchanged from Admission Past Medical History: Unchanged from Admission Objective Active Medications: Acetaminophen (Tylenol Tab*) 975 mg PO Q8HR [facility] Last Admin: 11/27/17 05:41 Dose: 975 mg Apixaban (Eliquis) 2.5 mg PO BID [facility] Last Admin: 11/27/17 07:39 Dose: 2.5 mg Bisacodyl (Dulcolax Supp*) [address] DAILY PRN PRN Reason: constipation Cetirizine HCl (Zyrtec*) 10 mg PO QAM [facility]; Protocol Last Admin: 11/27/17 07:39 Dose: 10 mg Cyclobenzaprine HCl (Flexeril Tab*) 5 mg PO TID PRN PRN Reason: SPASMS Last Admin: 11/23/17 23:52 Dose: 5 mg Diphenhydramine HCl (Benadryl Iv*) 25 mg IV Q6H PRN PRN Reason: itching Diphenhydramine HCl (Benadryl Po*) 25 mg PO Q6H PRN PRN Reason: itching Docusate Sodium (Colace Cap*) 100 mg PO BID [facility] Last Admin: 11/27/17 07:39 Dose: 100 mg Sodium Chloride (Ns 0.9% 1000 Ml*) 1,000 mls @ 100 mls/hr IV PER RATE [facility] Lactulose (Lactulose*) 30 ml PO Q6H PRN PRN Reason: constipation Magnesium Hydroxide (Milk Of Magnesia Liq*) 30 ml PO BID [facility] Last Admin: 11/27/17 07:39 Dose: Not Given Magnesium Hydroxide (Milk Of Magnesia Liq*) 30 ml PO Q6H PRN PRN Reason: constipation Magnesium Oxide (Magox 400 Tab*) 400 mg PO BID [facility] Last Admin: 11/27/17 07:38 Dose: 400 mg Metoprolol Tartrate (Lopressor Tab*) 25 mg PO BID [facility] Last Admin: 11/27/17 07:39 Dose: 25 mg Morphine Sulfate (Morphine Inj ((Syringe))*) 2 mg IV Q2H PRN PRN Reason: PAIN - SEVERE Last Admin: 11/25/17 22:38 Dose: 2 mg Ondansetron HCl (Zofran Inj*) 4 mg IV Q6H PRN PRN Reason: nausea Last Admin: 11/25/17 22:36 Dose: 4 mg Ondansetron HCl (Zofran Odt Tab*) 4 mg PO Q6H PRN PRN Reason: NAUSEA Last Admin: 11/26/17 08:48 Dose: 4 mg Oxycodone HCl (Roxycodone Tab*) 10 mg PO Q4H PRN PRN Reason: PAIN Last Admin: 11/25/17 06:13 Dose: 10 mg Oxycodone/Acetaminophen (Percocet 5/325 Tab*) 1 tab PO Q4H PRN PRN Reason: PAIN Last Admin: 11/26/17 08:48 Dose: 1 tab Oxycodone/Acetaminophen (Percocet 5/325 Tab*) 2 tab PO Q4H PRN PRN Reason: PAIN Pharmacy Profile Note (Scopolamine Patch Remove*) 1 note PATCH OFF Q72H JUNIOR Polyethylene Glycol/Electrolytes (Miralax*) 17 gm PO DAILY PRN PRN Reason: Constipation Potassium Chloride (Klor Con Er Tab*) 20 meq PO QPM JUNIOR Last Admin: 11/26/17 17:30 Dose: 20 meq Scopolamine (Transderm-Scop 1.5 Mg Patch*) 1 patch TRANSDERM Q72H JUNIOR Last Admin: 11/25/17 08:26 Dose: 1 patch Temazepam (Restoril Cap*) 15 mg PO BEDTIME PRN PRN Reason: INSOMNIA Last Admin: 11/26/17 20:31 Dose: 15 mg Tramadol HCl (Ultram*) 50 mg PO Q6H PRN PRN Reason: PAIN Last Admin: 11/25/17 17:48 Dose: 50 mg Vital Signs - 8 hr 11/27/17 11/27/17 04:28 07:15 Temperature 98.6 F 97.8 F Pulse Rate 71 70 Respiratory 16 17 Rate Blood Pressure 142/71 110/60 (mmHg) O2 Sat by Pulse 98 96 Oximetry Oxygen Devices in Use Now: None Appearance: alert, resting in recliner, well appearing Eyes: No Scleral Icterus Ears/Nose/Mouth/Throat: NL Teeth, Lips, Gums, - - dry mucosa Neck: NL Appearance and Movements; NL JVP Respiratory: Symmetrical Chest Expansion and Respiratory Effort, Clear to Auscultation Cardiovascular: NL Sounds; No Murmurs; No JVD Abdominal: NL Sounds; No Tenderness; No Distention Lymphatic: No Cervical Adenopathy Extremities: No Edema, - - hip incision clean with some surrounding edema, no drainage Neurological: NL Sensation Result Diagrams: 11/27/17 11:16 11/27/17 05:34 Microbiology and Other Data: Microbiology 11/25/17 19:30 Nasal Screen MRSA (PCR) - Final Nasal Mrsa Not Detected Assess/Plan/Problems-Billing Assessment: Patient is an 86yo female with a PMH for Atrial Fibrillation with history of permanent pacemaker implantation, HTN, Anxiety, who is S/P LT total hip, 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 - Patient Problems (1) Hyponatremia Current Visit: No Status: Acute Priority: High Code(s): E87.1 - HYPO- OSMOLALITY AND HYPONATREMIA SNOMED Code(s): 04871489 Comment: chronic but worse than baseline urine studies consistent with SIADH or reset osmostat, however sodium did improve slightly with hypertonic saline, so will give another liter of normal saline today, assuming there is a component of hypo-volemic hyponatremia (2) Anemia Current Visit: Yes Status: Acute Priority: Medium Code(s): D64.9 - ANEMIA , UNSPECIFIED SNOMED Code(s): 317510572 Comment: post-op stable at 7.6 today, no bleeding (3) Post-operative state Current Visit: Yes Status: Acute Code(s): Z98.890 - OTHER SPECIFIED POSTPROCEDURAL STATES SNOMED Code(s): 30186368 Comment: PT/OT, pain control, bowel regimen. (4) Afib Current Visit: No Status: Acute Priority: Medium Code(s): I48.91 - UNSPECIFIED ATRIAL FIBRILLATION SNOMED Code(s): 38290603 Comment: History of Afib, S/P AV blayne ablation and permanent pacemaker implantation. on eliquis Status and Disposition: Inpatient, disposition to PMRU once medically improving and ortho agrees.
[2017-11-27] MEDS ORDERED: NS 0.9% 1000 ML* 1,000 ML IV SCH (10:30)
[2017-11-27 11:25] LABS: Hematocrit 23 % (35-47); Hemoglobin 7.6 g/dl (12.0-16.0)
[2017-11-27] MEDS: Ondansetron INJ* 2 MG/ML VIAL IV PRN ×2 (11:31→17:05)
--- NOTE | 2017-11-27 14:48 | PN ---
Progress Note - Progress Note Date of Service: 11/27/17 SOAP: Subjective: [Pt seen sitting up in chair. Difficult to arouse. Reports feeling better. Has been seen up with PT. Mild/moderate pain L hip. Denies CP, SOB, dizziness.] Objective: [Alert, some difficulty with slurring words, NAD. Seated in chair sleeping on and off. L hip dressing c/d/i. No drainage or erythema. Calf soft, NT. Distal gross motor and NV function intact. 2+ DP Vital Signs Temp 98.3 F 11/27/17 11:21 Pulse 73 11/27/17 11:21 Resp 18 11/27/17 11:21 BP 152/74 11/27/17 11:21 Pulse Ox 94 11/27/17 11:21 Intake & Output 11/26/17 11/27/17 11/27/17 18:59 06:59 18:59 Intake Total 320 1000 600 Output Total 1000 700 900 Balance -680 300 -300 Intake: Oral 320 1000 600 Output: Urine 1000 700 900 Assessment: [s/p L COURTNEY POD # 4] Plan: [PT/OT - WBAT LLE Pain management Eliquis for DVT prophylaxis To PMRU tomorrow possibly. Will watch for increase in Na
[2017-11-27 16:35] LABS: EGFR Non-African American 88.4 (>60)
[2017-11-27] MEDS: Cyclobenzaprine TAB* 10 MG PO PRN (17:05)
[2017-11-27] MEDS: Potassium Chlor TAB* 20 MEQ TAB.ER PO SCH (17:06)
[2017-11-27] MEDS: NS 0.9% 1000 ML* 1,000 ML IV SCH (21:58)
[2017-11-28] MEDS: NS 0.9% 1000 ML* 1,000 ML IV SCH (04:49)
[2017-11-28] MEDS: Acetaminophen TAB* 325 MG PO SCH (05:47)
[2017-11-28 07:29] LABS: Hematocrit 22 % (35-47); Hemoglobin 7.6 g/dl (12.0-16.0); Mean Platelet Volume 7.7 um3 (7.4-10.4); Platelet Count 249 10^3/ul (150-450)
[2017-11-28 07:43] VITALS: BP 153/76
[2017-11-28 07:47] LABS: EGFR Non-African American 95.2 (>60)
[2017-11-28] MEDS ORDERED: Scopolamine PATCH Remove* 1 NOTE MISC PATCH OFF SCH (08:00)
[2017-11-28] MEDS: Docusate CAP* 100 MG PO SCH (08:35)
[2017-11-28] MEDS: Metoprolol Tartrate TAB* 25 MG PO SCH (08:35)
[2017-11-28] MEDS: Apixaban* 2.5 MG TAB PO SCH (08:35)
[2017-11-28] MEDS: Magnesium Oxide TAB* 400 MG PO SCH (08:35)
[2017-11-28] MEDS: Cetirizine* 10 MG TAB PO SCH (08:36)
[2017-11-28] MEDS: Scopolamine 1.5 mg* PATCH TRANSDERM SCH (08:37)
[2017-11-28] MEDS: Magnesium Hydroxide LIQ* 30 ML UDC PO SCH (08:43)
[2017-11-28] MEDS: Ondansetron ODT TAB* 4 MG PO PRN (08:47)
--- NOTE | 2017-11-28 09:48 | PN ---
Progress Note - Progress Note Date of Service: 11/28/17 SOAP: Subjective: [Pt seen sitting up in chair. Reports feeling better, states that she has pain with weight bearing. Has been seen up with PT. Denies CP, SOB, dizziness.] Objective: [Alert and oriented, NAD. L hip dressing c/d/i. No drainage or erythema. Calf soft, NT. Distal gross motor and NV function intact. 2+ DP Vital Signs Temp 98.0 F 11/28/17 07:27 Pulse 83 11/28/17 07:27 Resp 18 11/28/17 08:00 BP 153/76 11/28/17 07:27 Pulse Ox 100 11/28/17 07:27 Intake & Output 11/27/17 11/28/17 11/28/17 18:59 06:59 18:59 Intake Total 600 2250 240 Output Total 900 1050 300 Balance -300 1200 -60 Intake: IV Fluids 2000 NS (0.9%) 2000 Oral 600 250 240 Output: Urine 900 1050 300 Other: Date of Last Bowel 11/28/17 Movement # Bowel Movements 1 Estimated Stool Amount Small Assessment: [s/p L COURTNEY POD # 5] Plan: [PT/OT - WBAT LLE Pain management Eliquis for DVT prophylaxis Na has increased today. Transfer to [facility]
== END 2017-11-28 11:05 | DRG 470 ==
LOC: AA 11-23 12:20 → SSU 11-23 20:25 → ICU 11-25 19:33 → SSU 11-26 08:18
PROVIDERS: ADMIT Orthopaedic Surgery Adult Reconstructive Orthopaedic Surgery; ATTEND Internal Medicine
PROC: 0SRB04A Replacement of Left Hip Joint with Ceramic on Polyethylene Synthetic Substitute, Uncemented, Open Approach (ICD-10-PCS; principal; 2017-11-23 15:00)
DX: M16.12 Unilateral primary osteoarthritis, left hip (principal); M87.852 Other osteonecrosis, left femur; E22.2 Syndrome of inappropriate secretion of antidiuretic hormone; I10 Essential (primary) hypertension; I65.29 Occlusion and stenosis of unspecified carotid artery; M65.88 Other synovitis and tenosynovitis, other site; M85.88 Other specified disorders of bone density and structure, other site; M25.752 Osteophyte, left hip; M76.9 Unspecified enthesopathy, lower limb, excluding foot; F41.9 Anxiety disorder, unspecified; E03.9 Hypothyroidism, unspecified; I48.0 Paroxysmal atrial fibrillation; I08.3 Combined rheumatic disorders of mitral, aortic and tricuspid valves; I45.10 Unspecified right bundle-branch block; J45.909 Unspecified asthma, uncomplicated; E05.00 Thyrotoxicosis with diffuse goiter without thyrotoxic crisis or storm; Z95.0 Presence of cardiac pacemaker; Z88.5 Allergy status to narcotic agent; Z80.9 Family history of malignant neoplasm, unspecified; Z82.49 Family history of ischemic heart disease and other diseases of the circulatory system; Z72.89 Other problems related to lifestyle; Z98.49 Cataract extraction status, unspecified eye; Z80.1 Family history of malignant neoplasm of trachea, bronchus and lung; Z80.7 Family history of other malignant neoplasms of lymphoid, hematopoietic and related tissues; Z80.0 Family history of malignant neoplasm of digestive organs; R11.2 Nausea with vomiting, unspecified; R42 Dizziness and giddiness; D64.9 Anemia, unspecified
CPT/HCPCS: 36415; 72170; 80048; 82533; 83930; 83935; 84300; 84439; 84443; 85014; 85018; 85025; 85049; 87641; 88304; 88311; A9270-GY; C1713; C1776; G8978-GP-CJ; G8979-GP-CI; G8987-GO-CK; G8988-GO-CI; J0690; J1100; J1170; J1650; J1756; J2250; J2270; J2405; J2704; J2795; J3010; J3490

== ENCOUNTER 2017-11-28 10:48 | Inpatient (IN) | payer MEDICARE, BC ==
[2017-11-28] MEDS ORDERED: Magnesium Hydroxide LIQ* 30 ML UDC PO PRN (12:00)
[2017-11-28] MEDS ORDERED: Senna TAB PO PRN (12:00)
[2017-11-28] MEDS ORDERED: oxyCODONE/Acetamin 5/325 MG* TAB PO PRN ×2 (12:09→12:10)
--- NOTE | 2017-11-28 12:44 | PMRUTEAM ---
PMRU: Team Meeting Current Status: Physical Therapy: Current Status Bed Mobility Assistance Contact Guard Assist Transfer Moblility Assistance Contact Guard Assist,Min Assist Ambulation Assistance Contact Guard Assist Ambulation Assistive Devices Rolling Walker Stairs Assistance Not tested Stairs Recommended Devices Two Rails Number of Stairs 3 OCCUPATIONAL THERAPY:Supervision UB dressing, Mod Assist LB dressing, Mod Assist Bathing, Min Assist Toileting, CG toilet transfers Goals: PHYSICAL THERAPY: Mod I Transfers and ambulation, 150 feet with FWW, Supervision stairs 5 steps, Independent bed mobility OCCUPATIONAL THERAPY: Modified Independent UB Dressing, LB dressing, Toilet transfers, toileting and bathing Medicine Note: Length of Stay: 4 days Anticipated Discharge Destination: Tentative Discharge Date: December 02, 2017 Discharged to: Home
[2017-11-28] MEDS ORDERED: NS 0.9% 500 ML* 500 ML IV ONE (16:52)
[2017-11-28] MEDS: Potassium Chlor TAB* 20 MEQ TAB.ER PO SCH (17:50)
[2017-11-28] MEDS: Acetaminophen TAB* 325 MG PO PRN (18:39)
[2017-11-28] MEDS: Metoprolol Tartrate TAB* 25 MG PO SCH (20:14)
[2017-11-28] MEDS: Apixaban* 2.5 MG TAB PO SCH (20:14)
[2017-11-28] MEDS: Docusate CAP* 100 MG PO SCH (20:15)
--- NOTE | 2017-11-28 21:07 | HP ---
ADMISSION HISTORY AND PHYSICAL: DATE OF ADMISSION: 11/28/17 REASON FOR ADMISSION: Left total hip replacement. HISTORY OF PRESENT ILLNESS: Chela Brown is an 86-year-old female. She has a medical history significant for paroxysmal atrial fibrillation and hypertension. Her last echo done in December of 2016 showed an ejection fraction of 55% to 60% with a left atrium that was moderately dilated. She also had [id number] mitral regurg noted. She had difficulties with left hip pain. She had tried and failed conservative treatment including physical therapy. It was decided that the best course of action would be for her to have a left total hip replacement. She was admitted to [facility] on 11/24/17. She underwent a left total hip replacement that day. 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 Initially, she was 121, but on 11/25/17, her sodium dropped to 116. She was transferred to the intensive care unit. By 11/26/17, her sodium was better after she received hypertonic saline and back up to 121. She was transferred back to the surgical floor. On 11/27/17, her sodium was again 120. 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 She was also noted to be anemic, but was never transfused. The patient was felt to have physical therapy and occupational therapy needs. She is now being admitted for inpatient rehab so that she might return to independent living. PAST MEDICAL HISTORY: Significant for the aforementioned atrial fibrillation. She has undergone a pacemaker placement and has had AV blayne ablation in August of this year. 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 MEDICATIONS: Current medications include: 1. Eliquis, which he takes for her AFib. 2. She is also on beta ariela. 3. Lopressor. 4. She is on bowel medication. 5. Zyrtec. 6. Percocet for pain control, although has not had Percocet in 2 days. ALLERGIES: CODEINE. SOCIAL HISTORY: She is a nonsmoker, nondrinker. She lives with her niece in a 2- story house, but she stays largely on 1 level. Her shower is upstairs and she has not been able to go upstairs in several months due to cardiac issues. REVIEW OF SYSTEMS: The patient reports no current shortness of breath or chest pain. PHYSICAL EXAMINATION VITAL SIGNS: The patient's temperature is 97.3, blood pressure is 151/79, pulse 74, respirations 16. HEENT: Her extraocular movements are intact. Her tongue is midline. NECK: Supple. LUNGS: Sound clear to auscultation bilaterally. HEART: Sounds are regular. S1 and S2 are audible. ABDOMEN: Soft and nontender. EXTREMITIES: Her left hip has a wound, which is clean and dry. Peripheral pulses are intact. NEUROLOGIC: She is awake and alert. She is slightly confused. She is oriented to herself. She can follow 1 step commands consistently. Her muscle strength appears to be 5/5 except her left leg, which is 3/5 secondary to pain. She does have 3/5 dorsiflexion in the left leg. Her functional exam, she transfers with mod to max assistance. ASSESSMENT: Left total hip replacement. PLAN/RECOMMENDATIONS: Integrate her into a comprehensive and therapeutic rehab program with the following goals: 1. Physical Therapy will see the patient. They are going to work on functional transfer training. Ambulation training with a walker. 2. Occupational Therapy will see the patient, work on her activities of daily living including toileting and toilet transfers. 3. For DVT prophylaxis, the patient is already on Eliquis. 4. Continue Eliquis and her beta-ariela for her atrial fibrillation. 5. We will continue to monitor her sodium. 6. The patient has slight confusion today. We are going to give her 500 cc of normal saline. I think she may be slightly dehydrated after her fluid restriction. 7. deputy sheriff court services will be closely involved to make sure that any services and equipment the patient requires are in place prior to discharge. 8. Family training as appropriate. 9. Home with appropriate services. ESTIMATED LENGTH OF STAY: 7 to 10 days. [id number]/CPS #: [id number] [facility]
[2017-11-28] MEDS ORDERED: LORazepam TAB(*) 0.5 MG PO ONE (22:00)
[2017-11-29 05:11] LABS: ABS Basophils 0 10^3/ul (0-0.2); ABS Eosinophils 0 10^3/ul (0-0.6); ABS Lymphocytes 0.9 10^3/ul (1.0-4.8); ABS Monocytes 1.1 10^3/ul (0-0.8); ABS Neutrophils 5.4 10^3/ul (1.5-7.7); ABS Nucleated RBC 0 10^3/ul; Eosinophil % 0.6 % (0-6); Hematocrit 21 % (35-47); Hemoglobin 7.3 g/dl (12.0-16.0); Lymphocyte % 11.8 % (25-47); Mean Corpuscular HGB Conc 35 g/dl (31-36); Mean Corpuscular Hemoglobin 30 pg (27-31); Mean Corpuscular Volume 88 fL (80-97); Mean Platelet Volume 7.3 um3 (7.4-10.4); Nucleated Red Blood Cells % 0.4; Platelet Count 301 10^3/ul (150-450); Red Blood Count 2.41 10^6/ul (4.00-5.40); Red Cell Distribution Width 13 % (10.5-15); White Blood Count 7.4 10^3/ul (3.5-10.8)
[2017-11-29 05:26] LABS: EGFR Non-African American 86.8 (>60)
[2017-11-29] MEDS: Apixaban* 2.5 MG TAB PO SCH ×2 (08:50→21:26)
[2017-11-29] MEDS: Furosemide TAB* 20 MG PO SCH (08:51)
[2017-11-29] MEDS: Cetirizine* 10 MG TAB PO SCH (08:51)
[2017-11-29] MEDS: Metoprolol Tartrate TAB* 25 MG PO SCH ×2 (08:51→21:27)
[2017-11-29] MEDS: Lisinopril TAB* 5 MG PO SCH (08:51)
[2017-11-29] MEDS: Docusate CAP* 100 MG PO SCH ×2 (08:51→21:27)
[2017-11-29] MEDS: Acetaminophen TAB* 325 MG PO PRN (08:59)
[2017-11-29] MEDS ORDERED: Ondansetron ODT TAB* 4 MG PO PRN (10:31)
[2017-11-29] MEDS ORDERED: Al Hydrox/Mg Hydrox/Simet LIQ* 30 ML UDC PO PRN (10:31)
[2017-11-29] MEDS: Potassium Chlor TAB* 20 MEQ TAB.ER PO SCH (17:53)
[2017-11-29 17:55] LABS: Urine Appearance Clear; Urine Blood 1+ (Negative); Urine Color Yellow; Urine Ketones Negative (Negative); Urine Protein Negative (Negative); Urine Red Blood Cell Absent (Absent); Urine Specific Gravity 1.011 (1.010-1.030); Urine Urobilinogen Negative (Negative); Urine White Blood Cell Absent (Absent)
--- NOTE | 2017-11-29 18:22 | PN ---
Progress Note Date of Service: 11/29/17 Note: SOCRATES PAREDES was visited. Therapy notes read and reviewed. She was quite confused last night. She received an Ativan that did not help her much. This am , her CBC showed she was quite anemic Hb7.3/Hct21) and given her confusion, I elected to transfuse her. Her Na+ fell to 123. Also of note, her billirubin and transaminases are elevated. The patient did better with therapy, and was clearer today. She had received IV fluids last night, and had some difficulty voiding. A helm was placed after bladder scan showed >800 ml of urine in bladder. Not sure how mucch urine came out after helm. Will clamp tomorrow Current Medications: Active Medications Generic Name Dose Route Start Last Admin Trade Name Freq PRN Reason Stop Dose Admin Acetaminophen 650 mg 11/28/17 12:00 11/29/17 08:59 Tylenol Tab* PO 650 mg Q6H PRN Administration FEVER/PAIN Al Hydrox/Mg Hydrox/Simethicone 30 ml 11/29/17 10:31 Maalox Plus* PO Q6H PRN DYSPEPSIA Apixaban 2.5 mg 11/28/17 21:00 11/29/17 08:50 Eliquis PO 2.5 mg BID JUNIOR Administration Cetirizine HCl 10 mg 11/29/17 09:00 11/29/17 08:51 Zyrtec* PO 10 mg DAILY JUNIOR Administration Protocol Docusate Sodium 100 mg 11/28/17 21:00 11/29/17 08:51 Colace Cap* PO 100 mg BID JUNIOR Administration Furosemide 20 mg 11/29/17 09:00 11/29/17 08:51 Lasix Tab* PO 20 mg DAILY JUNIOR Administration Lisinopril 5 mg 11/29/17 09:00 11/29/17 08:51 Prinivil Tab* PO 5 mg DAILY JUNIOR Administration Magnesium Hydroxide 30 ml 11/28/17 12:00 Milk Of Magnesia Liq* PO Q6H PRN CONSTIPATION Methocarbamol 750 mg 11/28/17 12:09 Robaxin Tab* PO Q6H PRN SPASMS Metoprolol Tartrate 25 mg 11/28/17 21:00 11/29/17 08:51 Lopressor Tab* PO 25 mg BID JUNIOR Administration Ondansetron HCl 4 mg 11/29/17 10:31 Zofran Odt Tab* PO Q6H PRN NAUSEA Oxycodone/Acetaminophen 1 tab 11/28/17 12:09 Percocet 5/325 Tab* PO Q4H PRN PAIN - MODERATE TO SEVERE Potassium Chloride 20 meq 11/28/17 18:00 11/29/17 17:53 Klor Con Er Tab* PO 20 meq 1800 JUNIOR Administration Senna 2 tab 11/28/17 12:00 Senokot Tab* PO BEDTIME PRN CONSTIPATION Vital Signs: Vital Signs Temp Pulse Resp BP Pulse Ox 98.1 F 69 16 134/91 98 11/29/17 15:07 11/29/17 15:07 11/29/17 15:07 11/29/17 15:07 11/29/17 15:07 Lab Results: Laboratory Results - last 24 hr 11/29/17 11/29/17 11/29/17 04:49 04:49 04:49 WBC 7.4 RBC 2.41 L Hgb 7.3 L Hct 21 L MCV 88 MCH 30 MCHC 35 RDW 13 Plt Count 301 MPV 7.3 L Neut % (Auto) 72.6 Lymph % (Auto) 11.8 L [place] % (Auto) 14.5 H Eos % (Auto) 0.6 Baso % (Auto) 0.5 Absolute Neuts (auto) 5.4 Absolute Lymphs (auto) 0.9 L Absolute Monos (auto) 1.1 H Absolute Eos (auto) 0 Absolute Basos (auto) 0 Absolute Nucleated RBC 0 Nucleated RBC % 0.4 Sodium 123 L Potassium 4.7 Chloride 95 L Carbon Dioxide 23 Anion Gap 5 BUN 11 Creatinine 0.65 Est GFR ( Amer) 105.1 Est GFR (Non-Af Amer) 86.8 BUN/Creatinine Ratio 16.9 Glucose 112 H Calcium 8.2 L Total Bilirubin 1.60 H AST 71 H ALT 66 H Alkaline Phosphatase 77 Total Protein 5.9 L Albumin 3.1 L Globulin 2.8 Albumin/Globulin Ratio 1.1 Urine Color Urine Appearance Urine pH Ur Specific [place] Urine Protein Urine Ketones Urine Blood Urine Nitrate Urine Bilirubin Urine Urobilinogen Ur Leukocyte Esterase Urine WBC (Auto) Urine RBC (Auto) Urine Bacteria Hyaline Casts Urine Glucose Blood Type A Positive Antibody Screen Negative Crossmatch See Detail 11/29/17 15:54 WBC RBC Hgb Hct MCV MCH MCHC RDW Plt Count MPV Neut % (Auto) Lymph % (Auto) [place] % (Auto) Eos % (Auto) Baso % (Auto) Absolute Neuts (auto) Absolute Lymphs (auto) Absolute Monos (auto) Absolute Eos (auto) Absolute Basos (auto) Absolute Nucleated RBC Nucleated RBC % Sodium Potassium Chloride Carbon Dioxide Anion Gap BUN Creatinine Est GFR ( Amer) Est GFR (Non-Af Amer) BUN/Creatinine Ratio Glucose Calcium Total Bilirubin AST ALT Alkaline Phosphatase Total Protein Albumin Globulin Albumin/Globulin Ratio Urine Color Yellow Urine Appearance Clear Urine pH 6.0 Ur Specific [place] 1.011 Urine Protein Negative Urine Ketones Negative Urine Blood 1+ A Urine Nitrate Negative Urine Bilirubin Negative Urine Urobilinogen Negative Ur Leukocyte Esterase Negative Urine WBC (Auto) Absent Urine RBC (Auto) Absent Urine Bacteria Absent Hyaline Casts Present A Urine Glucose Negative Blood Type Antibody Screen Crossmatch Exam: GENERAL: Alert. Oriented to self and place. LUNGS: Clear HEART: reg rhythm ABDOMEN: Soft EXTREMITIES: Left Hip wound C/D/I NEUROLOGIC: alert, follows commands. Motor exam non-focal Assessment/Plan: 1. Left total hip arthroplasty: PT/OT. WBAT 2. Acute blood loss anemia: Transfused 1 u PRBCs 3. Atrial Fib: Lopressor/Eliquis 4. Elevated LFTs: possibly from anesthesia or antibiotics 5. 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 Check labs in am 6. DVT Prophylaxis: Eliquis 7. Advanced Directives: Full code 8. Delirium: Try to avoid opioids. These may have contributed to SIADH 11/29/17 18:34
[2017-11-30 06:50] LABS: EGFR Non-African American 95.2 (>60)
[2017-11-30] MEDS: Lisinopril TAB* 5 MG PO SCH (08:24)
[2017-11-30] MEDS: Apixaban* 2.5 MG TAB PO SCH ×2 (08:24→20:44)
[2017-11-30] MEDS: Cetirizine* 10 MG TAB PO SCH (08:24)
[2017-11-30] MEDS: Metoprolol Tartrate TAB* 25 MG PO SCH ×2 (08:24→20:46)
[2017-11-30] MEDS: Acetaminophen TAB* 325 MG PO PRN ×3 (08:24→20:44)
[2017-11-30] MEDS: Docusate CAP* 100 MG PO SCH ×2 (08:24→20:43)
[2017-11-30] MEDS: Furosemide TAB* 20 MG PO SCH (10:50)
[2017-11-30] MEDS: Potassium Chlor TAB* 20 MEQ TAB.ER PO SCH (17:51)
--- NOTE | 2017-11-30 18:05 | PN ---
Progress Note Date of Service: 11/30/17 Note: SOCRATES PAREDES was visited. Therapy notes read and reviewed. She is slowly improving with regards to her orientation. Na+ was 126 today. She did okay with therapy Current Medications: Active Medications Generic Name Dose Route Start Last Admin Trade Name Freq PRN Reason Stop Dose Admin Acetaminophen 650 mg 11/28/17 12:00 11/30/17 14:13 Tylenol Tab* PO 650 mg Q6H PRN Administration FEVER/PAIN Al Hydrox/Mg Hydrox/Simethicone 30 ml 11/29/17 10:31 Maalox Plus* PO Q6H PRN DYSPEPSIA Apixaban 2.5 mg 11/28/17 21:00 11/30/17 08:24 Eliquis PO 2.5 mg BID JUNIOR Administration Cetirizine HCl 10 mg 11/29/17 09:00 11/30/17 08:24 Zyrtec* PO 10 mg DAILY JUNIOR Administration Protocol Docusate Sodium 100 mg 11/28/17 21:00 11/30/17 08:24 Colace Cap* PO 100 mg BID JUNIOR Administration Furosemide 20 mg 11/29/17 09:00 11/30/17 10:50 Lasix Tab* PO 20 mg DAILY JUNIOR Administration Lisinopril 5 mg 11/29/17 09:00 11/30/17 08:24 Prinivil Tab* PO 5 mg DAILY JUNIOR Administration Magnesium Hydroxide 30 ml 11/28/17 12:00 Milk Of Magnesia Liq* PO Q6H PRN CONSTIPATION Methocarbamol 750 mg 11/28/17 12:09 Robaxin Tab* PO Q6H PRN SPASMS Metoprolol Tartrate 25 mg 11/28/17 21:00 11/30/17 08:24 Lopressor Tab* PO 25 mg BID JUNIOR Administration Ondansetron HCl 4 mg 11/29/17 10:31 Zofran Odt Tab* PO Q6H PRN NAUSEA Potassium Chloride 20 meq 11/28/17 18:00 11/30/17 17:51 Klor Con Er Tab* PO 20 meq 1800 JUNIOR Administration Senna 2 tab 11/28/17 12:00 Senokot Tab* PO BEDTIME PRN CONSTIPATION Vital Signs: Vital Signs Temp Pulse Resp BP Pulse Ox 98.2 F 72 18 146/73 99 11/29/17 23:59 11/29/17 23:59 11/30/17 17:42 11/29/17 23:59 11/29/17 23:59 Lab Results: Laboratory Results - last 24 hr 11/30/17 06:22 Sodium 126 L Potassium 4.4 Chloride 95 L Carbon Dioxide 27 Anion Gap 4 BUN 9 Creatinine 0.60 Est GFR ( Amer) 115.2 Est GFR (Non-Af Amer) 95.2 BUN/Creatinine Ratio 15.0 Glucose 104 H Calcium 8.3 L Total Bilirubin 1.70 H AST 51 H ALT 65 H Alkaline Phosphatase 74 Total Protein 5.9 L Albumin 3.2 Globulin 2.7 Albumin/Globulin Ratio 1.2 Exam: GENERAL: Alert. Oriented to self and place. LUNGS: Clear HEART: reg rhythm ABDOMEN: Soft EXTREMITIES: Left Hip wound C/D/I NEUROLOGIC: alert, follows commands. Motor exam non-focal Assessment/Plan: 1. Left total hip arthroplasty: PT/OT. WBAT 2. Acute blood loss anemia: Transfused 1 u PRBCs. Check Hb in am 3. Atrial Fib: Lopressor/Eliquis 4. Elevated LFTs: possibly from anesthesia or antibiotics, stable 5. 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 Na+ better. Check labs in am 6. DVT Prophylaxis: Eliquis 7. Advanced Directives: Full code 8. Delirium: Try to avoid opioids. These may have contributed to SIADH 11/30/17 18:05
[2017-12-01 06:23] LABS: ABS Basophils 0 10^3/ul (0-0.2); ABS Eosinophils 0.3 10^3/ul (0-0.6); ABS Lymphocytes 1.1 10^3/ul (1.0-4.8); ABS Monocytes 0.9 10^3/ul (0-0.8); ABS Neutrophils 3.1 10^3/ul (1.5-7.7); ABS Nucleated RBC 0 10^3/ul; Eosinophil % 6.2 % (0-6); Hematocrit 25 % (35-47); Hemoglobin 8.5 g/dl (12.0-16.0); Lymphocyte % 20.3 % (25-47); Mean Corpuscular HGB Conc 34 g/dl (31-36); Mean Corpuscular Hemoglobin 30 pg (27-31); Mean Corpuscular Volume 89 fL (80-97); Mean Platelet Volume 6.9 um3 (7.4-10.4); Nucleated Red Blood Cells % 0.2; Platelet Count 266 10^3/ul (150-450); Red Blood Count 2.83 10^6/ul (4.00-5.40); Red Cell Distribution Width 14 % (10.5-15); White Blood Count 5.5 10^3/ul (3.5-10.8)
[2017-12-01 06:41] LABS: EGFR Non-African American 107.6 (>60)
[2017-12-01] MEDS: Metoprolol Tartrate TAB* 25 MG PO SCH ×2 (08:30→20:50)
[2017-12-01] MEDS: Furosemide TAB* 20 MG PO SCH (08:30)
[2017-12-01] MEDS: Lisinopril TAB* 5 MG PO SCH (08:30)
[2017-12-01] MEDS: Apixaban* 2.5 MG TAB PO SCH ×2 (08:30→20:50)
[2017-12-01] MEDS: Cetirizine* 10 MG TAB PO SCH (08:30)
[2017-12-01] MEDS: Docusate CAP* 100 MG PO SCH ×2 (08:31→20:50)
[2017-12-01] MEDS: Acetaminophen TAB* 325 MG PO PRN ×2 (08:31→15:53)
[2017-12-01] MEDS: Methocarbamol TAB* 500 MG PO PRN ×2 (11:33→20:50)
--- NOTE | 2017-12-01 12:08 | PN ---
Progress Note Date of Service: 12/01/17 Note: SOCRATES PAREDES was visited. Nursing and therapy notes read and reviewed. Much less confused now than earlier in the week. She has some left hip pain. Just using tylenol for pain. Current Medications: Active Medications Generic Name Dose Route Start Last Admin Trade Name Freq PRN Reason Stop Dose Admin Acetaminophen 650 mg 11/28/17 12:00 12/01/17 08:31 Tylenol Tab* PO 650 mg Q6H PRN Administration FEVER/PAIN Al Hydrox/Mg Hydrox/Simethicone 30 ml 11/29/17 10:31 Maalox Plus* PO Q6H PRN DYSPEPSIA Apixaban 2.5 mg 11/28/17 21:00 12/01/17 08:30 Eliquis PO 2.5 mg BID JUNIOR Administration Cetirizine HCl 10 mg 11/29/17 09:00 12/01/17 08:30 Zyrtec* PO 10 mg DAILY JUNIOR Administration Protocol Docusate Sodium 100 mg 11/28/17 21:00 12/01/17 08:31 Colace Cap* PO 100 mg BID JUNIOR Administration Furosemide 20 mg 11/29/17 09:00 12/01/17 08:30 Lasix Tab* PO 20 mg DAILY JUNIOR Administration Lisinopril 5 mg 11/29/17 09:00 12/01/17 08:30 Prinivil Tab* PO 5 mg DAILY JUNIOR Administration Magnesium Hydroxide 30 ml 11/28/17 12:00 Milk Of Magnesia Liq* PO Q6H PRN CONSTIPATION Methocarbamol 750 mg 11/28/17 12:09 12/01/17 11:33 Robaxin Tab* PO 750 mg Q6H PRN Administration SPASMS Metoprolol Tartrate 25 mg 11/28/17 21:00 12/01/17 08:30 Lopressor Tab* PO 25 mg BID JUNIOR Administration Ondansetron HCl 4 mg 11/29/17 10:31 Zofran Odt Tab* PO Q6H PRN NAUSEA Potassium Chloride 20 meq 11/28/17 18:00 11/30/17 17:51 Klor Con Er Tab* PO 20 meq 1800 JUNIOR Administration Senna 2 tab 11/28/17 12:00 Senokot Tab* PO BEDTIME PRN CONSTIPATION Vital Signs: Vital Signs Temp Pulse Resp BP Pulse Ox 97.8 F 69 16 144/73 100 12/01/17 05:39 12/01/17 05:39 12/01/17 11:33 12/01/17 05:39 12/01/17 08:00 Lab Results: Laboratory Results - last 24 hr 12/01/17 12/01/17 06:02 06:02 WBC 5.5 RBC 2.83 L Hgb 8.5 L Hct 25 L MCV 89 MCH 30 MCHC 34 RDW 14 Plt Count 266 MPV 6.9 L Neut % (Auto) 55.8 Lymph % (Auto) 20.3 L [place] % (Auto) 17.1 H Eos % (Auto) 6.2 H Baso % (Auto) 0.6 Absolute Neuts (auto) 3.1 Absolute Lymphs (auto) 1.1 Absolute Monos (auto) 0.9 H Absolute Eos (auto) 0.3 Absolute Basos (auto) 0 Absolute Nucleated RBC 0 Nucleated RBC % 0.2 Sodium 128 L Potassium 3.7 Chloride 96 L Carbon Dioxide 27 Anion Gap 5 BUN 6 Creatinine 0.54 Est GFR ( Amer) 130.1 Est GFR (Non-Af Amer) 107.6 BUN/Creatinine Ratio 11.1 Glucose 92 Calcium 8.2 L Exam: GENERAL: Alert and appropriate. LUNGS: Clear to auscultation bilaterally. HEART: regular rate and rhythm ABDOMEN: Soft, + bowel sounds, non-tender, non-distended EXTREMITIES: mild bilateral pedal edema. Left thigh swollen as expected post-op. Assessment/Plan: 1. Left total hip arthroplasty: PT/OT. WBAT 2. Acute blood loss anemia: Transfused 1 u PRBCs. H/H improved. f/u cbc Monday. 3. Atrial Fib: Lopressor/Eliquis 4. Elevated LFTs: possibly from anesthesia or antibiotics. f/u labs monday. 5. 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 Na+ better. recheck monday. 6. DVT Prophylaxis: Eliquis 7. Advanced Directives: Full code 8. Delirium: Better off opioids. These may have contributed to SIADH 9. Advanced directives: full code. 10. Estimated LOS: later next week. 12/01/17 12:09
[2017-12-01] MEDS: Potassium Chlor TAB* 20 MEQ TAB.ER PO SCH (18:47)
[2017-12-02] MEDS: Metoprolol Tartrate TAB* 25 MG PO SCH ×2 (08:05→21:01)
[2017-12-02] MEDS: Cetirizine* 10 MG TAB PO SCH (08:05)
[2017-12-02] MEDS: Acetaminophen TAB* 325 MG PO PRN ×3 (08:05→21:02)
[2017-12-02] MEDS: Lisinopril TAB* 5 MG PO SCH (08:05)
[2017-12-02] MEDS: Apixaban* 2.5 MG TAB PO SCH ×2 (08:05→21:01)
[2017-12-02] MEDS: Furosemide TAB* 20 MG PO SCH (08:05)
[2017-12-02] MEDS: Docusate CAP* 100 MG PO SCH ×2 (08:07→20:57)
--- NOTE | 2017-12-02 10:25 | PN ---
Progress Note Date of Service: 12/02/17 Note: SOCRATES PAREDES was visited. Nursing and therapy notes read and reviewed. No chest pain, shortness of breath or abdominal pain. Started to feel urgency with helm clamping. Current Medications: Active Medications Generic Name Dose Route Start Last Admin Trade Name Freq PRN Reason Stop Dose Admin Acetaminophen 650 mg 11/28/17 12:00 12/02/17 08:05 Tylenol Tab* PO 650 mg Q6H PRN Administration FEVER/PAIN Al Hydrox/Mg Hydrox/Simethicone 30 ml 11/29/17 10:31 Maalox Plus* PO Q6H PRN DYSPEPSIA Apixaban 2.5 mg 11/28/17 21:00 12/02/17 08:05 Eliquis PO 2.5 mg BID JUNIOR Administration Cetirizine HCl 10 mg 11/29/17 09:00 12/02/17 08:05 Zyrtec* PO 10 mg DAILY JUNIOR Administration Protocol Docusate Sodium 100 mg 11/28/17 21:00 12/02/17 08:07 Colace Cap* PO Not Given BID JUNIOR Furosemide 20 mg 11/29/17 09:00 12/02/17 08:05 Lasix Tab* PO 20 mg DAILY JUNIOR Administration Lisinopril 5 mg 11/29/17 09:00 12/02/17 08:05 Prinivil Tab* PO 5 mg DAILY JUNIOR Administration Magnesium Hydroxide 30 ml 11/28/17 12:00 Milk Of Magnesia Liq* PO Q6H PRN CONSTIPATION Methocarbamol 750 mg 11/28/17 12:09 12/01/17 20:50 Robaxin Tab* PO 750 mg Q6H PRN Administration SPASMS Metoprolol Tartrate 25 mg 11/28/17 21:00 12/02/17 08:05 Lopressor Tab* PO 25 mg BID JUNIOR Administration Ondansetron HCl 4 mg 11/29/17 10:31 Zofran Odt Tab* PO Q6H PRN NAUSEA Potassium Chloride 20 meq 11/28/17 18:00 12/01/17 18:47 Klor Con Er Tab* PO 20 meq 1800 JUNIOR Administration Senna 2 tab 11/28/17 12:00 Senokot Tab* PO BEDTIME PRN CONSTIPATION Vital Signs: Vital Signs Temp Pulse Resp BP Pulse Ox 98.2 F 72 18 152/81 99 12/02/17 05:07 12/02/17 05:07 12/02/17 05:07 12/02/17 05:07 12/02/17 08:00 Exam: GENERAL: Alert and appropriate. LUNGS: Clear to auscultation bilaterally. HEART: regular rate and rhythm ABDOMEN: Soft, + bowel sounds, non-tender, non-distended EXTREMITIES: mild bilateral pedal edema. Left thigh swollen as expected post-op. SKIN: left hip incision glued. clean/dry/intact. Assessment/Plan: 1. Left total hip arthroplasty: PT/OT. WBAT 2. Acute blood loss anemia: Transfused 1 u PRBCs. H/H improved. f/u cbc Monday. 3. Atrial Fib: Lopressor/Eliquis 4. Elevated LFTs: possibly from anesthesia or antibiotics. f/u labs monday. 5. 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 Na+ better. recheck monday. 6. DVT Prophylaxis: Eliquis 7. Advanced Directives: Full code 8. Delirium: Resolved off opioids. These may have contributed to SIADH 9. Urine retention: d/c helm today. May have been secondary to opioids as well. 10. Advanced directives: full code. 11. Estimated LOS: later next week. 12/02/17 10:24
[2017-12-02] MEDS: Potassium Chlor TAB* 20 MEQ TAB.ER PO SCH (17:08)
[2017-12-03 06:01] LABS: ABS Basophils 0 10^3/ul (0-0.2); ABS Eosinophils 0.2 10^3/ul (0-0.6); ABS Monocytes 0.9 10^3/ul (0-0.8); ABS Neutrophils 3.7 10^3/ul (1.5-7.7); ABS Nucleated RBC 0 10^3/ul; Eosinophil % 3.5 % (0-6); Hematocrit 25 % (35-47); Hemoglobin 8.6 g/dl (12.0-16.0); Lymphocyte % 16.4 % (25-47); Mean Corpuscular HGB Conc 34 g/dl (31-36); Mean Corpuscular Hemoglobin 30 pg (27-31); Mean Corpuscular Volume 89 fL (80-97); Mean Platelet Volume 6.9 um3 (7.4-10.4); Nucleated Red Blood Cells % 0.1; Platelet Count 260 10^3/ul (150-450); Red Blood Count 2.82 10^6/ul (4.00-5.40); Red Cell Distribution Width 14 % (10.5-15); White Blood Count 5.9 10^3/ul (3.5-10.8)
[2017-12-03 06:20] LABS: EGFR Non-African American 103.1 (>60)
[2017-12-03] MEDS: Metoprolol Tartrate TAB* 25 MG PO SCH ×2 (09:00→21:06)
[2017-12-03] MEDS: Lisinopril TAB* 5 MG PO SCH (09:00)
[2017-12-03] MEDS: Acetaminophen TAB* 325 MG PO PRN ×2 (09:00→21:06)
[2017-12-03] MEDS: Apixaban* 2.5 MG TAB PO SCH ×2 (09:00→21:06)
[2017-12-03] MEDS: Furosemide TAB* 20 MG PO SCH (09:00)
[2017-12-03] MEDS: Cetirizine* 10 MG TAB PO SCH (09:01)
[2017-12-03] MEDS: Docusate CAP* 100 MG PO SCH (09:02)
--- NOTE | 2017-12-03 09:11 | PN ---
Progress Note Date of Service: 12/03/17 Note: SOCRATES PAREDES was visited. Nursing and therapy notes read and reviewed. She reports explosive diarrhea. No chest pain, shortness of breath or abdominal pain. Current Medications: Active Medications Generic Name Dose Route Start Last Admin Trade Name Freq PRN Reason Stop Dose Admin Acetaminophen 650 mg 11/28/17 12:00 12/03/17 09:00 Tylenol Tab* PO 650 mg Q6H PRN Administration FEVER/PAIN Al Hydrox/Mg Hydrox/Simethicone 30 ml 11/29/17 10:31 Maalox Plus* PO Q6H PRN DYSPEPSIA Apixaban 2.5 mg 11/28/17 21:00 12/03/17 09:00 Eliquis PO 2.5 mg BID JUNIOR Administration Cetirizine HCl 10 mg 11/29/17 09:00 12/03/17 09:01 Zyrtec* PO 10 mg DAILY JUNIOR Administration Protocol Docusate Sodium 100 mg 11/28/17 21:00 12/03/17 09:02 Colace Cap* PO Not Given BID JUNIOR Furosemide 20 mg 11/29/17 09:00 12/03/17 09:00 Lasix Tab* PO 20 mg DAILY JUNIOR Administration Lisinopril 5 mg 11/29/17 09:00 12/03/17 09:00 Prinivil Tab* PO 5 mg DAILY JUNIOR Administration Magnesium Hydroxide 30 ml 11/28/17 12:00 Milk Of Magnesia Liq* PO Q6H PRN CONSTIPATION Methocarbamol 750 mg 11/28/17 12:09 12/01/17 20:50 Robaxin Tab* PO 750 mg Q6H PRN Administration SPASMS Metoprolol Tartrate 25 mg 11/28/17 21:00 12/03/17 09:00 Lopressor Tab* PO 25 mg BID JUNIOR Administration Ondansetron HCl 4 mg 11/29/17 10:31 Zofran Odt Tab* PO Q6H PRN NAUSEA Potassium Chloride 20 meq 11/28/17 18:00 12/02/17 17:08 Klor Con Er Tab* PO 20 meq 1800 JUNIOR Administration Senna 2 tab 11/28/17 12:00 Senokot Tab* PO BEDTIME PRN CONSTIPATION Vital Signs: Vital Signs Temp Pulse Resp BP Pulse Ox 98.3 F 71 16 154/78 100 12/03/17 05:34 12/03/17 05:34 12/03/17 05:34 12/03/17 05:34 12/03/17 05:34 Lab Results: Laboratory Results - last 24 hr 12/03/17 12/03/17 05:45 05:45 WBC 5.9 RBC 2.82 L Hgb 8.6 L Hct 25 L MCV 89 MCH 30 MCHC 34 RDW 14 Plt Count 260 MPV 6.9 L Neut % (Auto) 63.7 Lymph % (Auto) 16.4 L [place] % (Auto) 15.6 H Eos % (Auto) 3.5 Baso % (Auto) 0.8 Absolute Neuts (auto) 3.7 Absolute Lymphs (auto) 1.0 Absolute Monos (auto) 0.9 H Absolute Eos (auto) 0.2 Absolute Basos (auto) 0 Absolute Nucleated RBC 0 Nucleated RBC % 0.1 Sodium 128 L Potassium 3.9 Chloride 95 L Carbon Dioxide 29 Anion Gap 4 BUN 8 Creatinine 0.56 Est GFR ( Amer) 124.8 Est GFR (Non-Af Amer) 103.1 BUN/Creatinine Ratio 14.3 Glucose 94 Calcium 8.4 L Total Bilirubin 1.00 AST 30 ALT 39 Alkaline Phosphatase 70 Total Protein 5.7 L Albumin 3.2 Globulin 2.5 Albumin/Globulin Ratio 1.3 Exam: GENERAL: Alert and appropriate. LUNGS: Clear to auscultation bilaterally. HEART: regular rate and rhythm ABDOMEN: Soft, + bowel sounds, non-tender, non-distended EXTREMITIES: No pedal edema but still in bed this morning. Left thigh swollen as expected post-op. SKIN: left hip incision glued. clean/dry/intact. Assessment/Plan: 1. Left total hip arthroplasty: PT/OT. WBAT 2. Acute blood loss anemia: Transfused 1 u PRBCs. H/H stable now. Routine labs. 3. Atrial Fib: Lopressor/Eliquis 4. Elevated LFTs: resolved. 5. 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 Na+ stable. 6. DVT Prophylaxis: Eliquis 7. Advanced Directives: Full code 8. Delirium: Resolved off opioids. These may have contributed to SIADH 9. Urine retention: d/c'd helm 12/02 and voiding normally. Resolved. May have been secondary to opioids as well. 10. Diarrhea: change bowel meds all to prn. 11. Advanced directives: full code. 12. Estimated LOS: likely later this week. Will discuss with team on 12/05. 12/03/17 09:12
[2017-12-03] MEDS ORDERED: Docusate CAP* 100 MG PO PRN (09:14)
[2017-12-03] MEDS: Potassium Chlor TAB* 20 MEQ TAB.ER PO SCH (17:15)
[2017-12-04] MEDS: Metoprolol Tartrate TAB* 25 MG PO SCH ×2 (08:14→20:15)
[2017-12-04] MEDS: Furosemide TAB* 20 MG PO SCH (08:14)
[2017-12-04] MEDS: Cetirizine* 10 MG TAB PO SCH (08:14)
[2017-12-04] MEDS: Lisinopril TAB* 5 MG PO SCH (08:15)
[2017-12-04] MEDS: Apixaban* 2.5 MG TAB PO SCH ×2 (08:15→20:15)
--- NOTE | 2017-12-04 09:03 | PN ---
Progress Note Date of Service: 12/04/17 Note: SOCRATES PAREDES was visited. Nursing notes read and reviewed. No therapy yesterday or today due to holiday. No chest pain, shortness of breath or abdominal pain. Her rectal area is irritated from prior explosive diarrhea. Now having some formed BMs. Current Medications: Active Medications Generic Name Dose Route Start Last Admin Trade Name Freq PRN Reason Stop Dose Admin Acetaminophen 650 mg 11/28/17 12:00 12/03/17 21:06 Tylenol Tab* PO 650 mg Q6H PRN Administration FEVER/PAIN Al Hydrox/Mg Hydrox/Simethicone 30 ml 11/29/17 10:31 Maalox Plus* PO Q6H PRN DYSPEPSIA Apixaban 2.5 mg 11/28/17 21:00 12/04/17 08:15 Eliquis PO 2.5 mg BID JUNIOR Administration Cetirizine HCl 10 mg 11/29/17 09:00 12/04/17 08:14 Zyrtec* PO 10 mg DAILY JUNIOR Administration Protocol Docusate Sodium 100 mg 12/03/17 09:14 Colace Cap* PO BID PRN CONSTIPATION Furosemide 20 mg 11/29/17 09:00 12/04/17 08:14 Lasix Tab* PO 20 mg DAILY JUNIOR Administration Hydrocortisone 1 applic 12/04/17 08:58 Hytone Cream 1%* TOPICAL TID PRN rectal irritation Lisinopril 5 mg 11/29/17 09:00 12/04/17 08:15 Prinivil Tab* PO 5 mg DAILY JUNIOR Administration Magnesium Hydroxide 30 ml 11/28/17 12:00 Milk Of Magnesia Liq* PO Q6H PRN CONSTIPATION Methocarbamol 750 mg 11/28/17 12:09 12/01/17 20:50 Robaxin Tab* PO 750 mg Q6H PRN Administration SPASMS Metoprolol Tartrate 25 mg 11/28/17 21:00 12/04/17 08:14 Lopressor Tab* PO 25 mg BID JUNIOR Administration Ondansetron HCl 4 mg 11/29/17 10:31 Zofran Odt Tab* PO Q6H PRN NAUSEA Potassium Chloride 20 meq 11/28/17 18:00 12/03/17 17:15 Klor Con Er Tab* PO 20 meq 1800 JUNIOR Administration Senna 2 tab 11/28/17 12:00 Senokot Tab* PO BEDTIME PRN CONSTIPATION Vital Signs: Vital Signs Temp Pulse Resp BP Pulse Ox 98.9 F 71 18 136/66 99 12/04/17 05:28 12/04/17 05:12/04/17 07:53 12/04/17 05:12/04/17 07:53 Exam: GENERAL: Alert and appropriate. LUNGS: Clear to auscultation bilaterally. HEART: regular rate and rhythm ABDOMEN: Soft, + bowel sounds, non-tender, non-distended EXTREMITIES: Mild bilateral pedal edema. Left thigh swollen as expected post-op. SKIN: left hip incision glued. clean/dry/intact. Ecchymosis is stable. No rash. Assessment/Plan: 1. Left total hip arthroplasty: PT/OT. WBAT 2. Acute blood loss anemia: Transfused 1 u PRBCs. H/H stable now. Routine labs. 3. Atrial Fib: Lopressor/Eliquis 4. Elevated LFTs: resolved. 5. 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 Na+ stable. 6. DVT Prophylaxis: Eliquis 7. Advanced Directives: Full code 8. Delirium: Resolved off opioids. These may have contributed to SIADH 9. Urine retention: d/c'd helm 12/02 and voiding normally. Resolved. May have been secondary to opioids as well. 10. Diarrhea: bowel meds all to prn. Hydrocortisone cream prn for irritation post prior diarrhea 11. Advanced directives: full code. 12. Estimated LOS: likely later this week. Will discuss with team on 12/05. 12/04/17 09:02
[2017-12-04] MEDS: Hydrocortisone 1% CREAM* 30 GM TUBE TOPICAL PRN ×2 (13:18→20:18)
[2017-12-04] MEDS: Potassium Chlor TAB* 20 MEQ TAB.ER PO SCH (17:56)
[2017-12-04] MEDS: Acetaminophen TAB* 325 MG PO PRN (20:15)
[2017-12-05] MEDS: Acetaminophen TAB* 325 MG PO PRN ×2 (07:28→14:33)
[2017-12-05] MEDS: Apixaban* 2.5 MG TAB PO SCH ×2 (07:28→22:14)
[2017-12-05] MEDS: Lisinopril TAB* 5 MG PO SCH (07:29)
[2017-12-05] MEDS: Metoprolol Tartrate TAB* 25 MG PO SCH ×2 (07:29→22:14)
[2017-12-05] MEDS: Cetirizine* 10 MG TAB PO SCH (07:29)
[2017-12-05] MEDS: Furosemide TAB* 20 MG PO SCH (07:29)
[2017-12-05] MEDS: Hydrocortisone 1% CREAM* 30 GM TUBE TOPICAL PRN ×2 (09:55→22:14)
--- NOTE | 2017-12-05 12:34 | PMRUTEAM ---
PMRU: Team Meeting Current Status: Nursing: Current Status Skin Deviations [Inner L thigh Bruise ] Skin Deviations [Left Arm] Bruise,Previous Access Point Skin Deviations [Left Hip] Incision Skin Deviation Description [ erythema, edema Inner L thigh] Skin Deviation Description [ erythema Left Arm] Skin Deviation Description [ MEAT HOSTESS - healing well Left Hip] Physical Therapy: Current Status Bed Mobility Assistance Supervision Transfer Moblility Assistance Supervision Transfer/Bed Mobility Rolling Walker Recommended Devices Ambulation Assistance Supervision Ambulation Assistive Devices Rolling Walker Number of Feet Patient 150' Ambulated Stairs Assistance Supervision Stairs Recommended Devices One Rail Number of Stairs 10 Curb Not Tested Objective Comments patietn ascends and descends 10 stairs in a step to pattern. patient needs some initial cuing for procedure, but is able to follow through throughout rest of session. Occupational Therapy: Current Status Upper Body Dressing Independent Lower Body Dressing Ind with Adaptive Equip Bathing Ind with Adaptive Equip Toileting Ind with Adaptive Equip Toilet Transfer Ind with Adaptive Equip Shower Transfer Supervision Eating Independent Rec Therapy: Current Status Summary of Assessment and RT assessment complete and pt. is aware of RT Clinical Impression services. Pt. has been sleeping or visiting with family much of the time in the afternoons. Treatment Goals Pt. will engage in leisure activities while on the unit. Treatment Plan Provide RT services and encourage involvement. Social Work: Current Status Discharge Plan return home with home care svs and family support Potential for Family Training pt's neice is involved and supportive Anticipated Discharge Home Destination Discharge With home care svs and family support Nutrition: Current Status Monitoring Eating 90-100% of meals independently; wears dentures. Na+ steadily improvin 12/03. Regular BMs noted (last BM 12/03). Appears to be meeting goals; will continue to follow. Goals: Physical Therapy: Initial Goals Bed Mobility Assistance Independent Transfer Mobility Assistance Independent Transfer/Bed Mobility Rolling Walker Recommended Devices Ambulation Independent Ambulation Recommended Devices Rolling Walker Ambulation Distance 150 Stairs Assistance Supervision Stair Recommended Devices One Rail Number of Stairs 3 Home Exercise Program Independent Assistance Physical Therapy: Updated Goals Bed Mobility Assistance Independent Transfer Mobility Assistance Independent Transfer/Bed Mobility Rolling Walker Recommended Devices Ambulation Assistance Independent Ambulation Assistive Devices Rolling Walker Ambulation Distance (ft) 150 Stairs Assistance Independent Stairs Recommended Devices One Rail Number of Stairs 3 Occupational Therapy: Initial Goals Goals to be Completed in (Days 5-7 days ) Upper Body Bathing Routine Modified Independent with Lower Body Bathing Routine Modified Independent with Upper Body Dressing Routine Independent Lower Body Dressing Routine Modified Independent with Toilet Hygeine and Clothing Modified Independent with Management Routine Toilet Transfer Routine Modified Independent with Step-In Shower Transfer Modified Independent with Routine Tub Transfer Routine Modified Independent with Functional Transfers for ADL Modified Independent with Grooming Routine Independent Feeding Routine Independent Nutrition: Goals Intervention Goals 1. Intake will remain adequate to maintain stable wt and preserve lean body mass 2. Pt will establish regular bowel pattern without diarrhea or constipation Social Work: Goals Discharge Plan return home with home care svs and family support Potential for Family Training pt's raciel is involved and supportive Anticipated Discharge Home Destination Discharge With home care svs and family support Care Plan: Care Plan Cardiovascular- Improve/Maintain Start: 11/28/17 15:40 Freq: QSHIFT Status: Active Target: Protocol: Activity Type Activity Date Activity User E-Sign Co-Sign Detail Recorded Client Recorded Date Recorded By Document 12/05/17 09:21 [id number] 12/05/17 09:23 [id number] 12/05/17 09:21 PMRU Outcome: Cardiovascular Vital Signs q Shift for 48hrs Then BID Yes Daily Weight Ordered No Current Cardiovascular Outcome/Goal Maintain/ Achieve Baseline HR, BP , Perfusion Free of Abnormal Cardiac Symptoms Progression Toward Outcome/Goal Progressing Outcomes/Goals Met Maintain/ Achieve Baseline HR, BP , Perfusion Free of Abnormal Cardiac Symptoms Coping/Psych-Improve/Maintain Start: 11/28/17 15:40 Freq: QSHIFT Status: Complete Target: Protocol: Activity Type Activity Date Activity User E-Sign Co-Sign Detail Recorded Client Recorded Date Recorded By Document 12/03/17 08:00 [id number] [id number] 12/03/17 11:22 [id number] 12/03/17 08:00 PMRU Outcome: Coping/Psychosocial Coping Outcome/Goals Verbalization of Acceptance of Rehab Admit Verbalization of Sense of Control Over Health Status Utilization of Appropriate Problem Solving Techniques Willingness to Participate in Treatment Plan and Basic Needs Psychosocial Outcome/Goals Maintain/ Improve Emotional Health Demonstrates Knowledge of Healthy Coping Mechanisms Available Cooperate/ Participate in Plan Coping Outcome/Goals Met Demonstrates Understanding of Rehab Admit and Goal Setting Process Recognizes/Uses Appropriate Resources That Can Assist With Adjustment Psychosocial Outcome/Goals Met Maintain/ Improved Emotional Health Cooperate/ Participated in Plan DVT Prophylaxis- Improve/Maintain Start: 11/28/17 15:40 Freq: QSHIFT Status: Active Target: Protocol: Activity Type Activity Date Activity User E-Sign Co-Sign Detail Recorded Client Recorded Date Recorded By Document 12/05/17 09:21 [id number] [email or web address] 12/05/17 09:23 [id number] 12/05/17 09:21 PMRU Outcome: DVT Prophylaxis Outcome/Goals Remains Free of DVT Complies with DVT Prophylaxis /Treatment Demonstrates Knowledge of DVT Prevention/ Treatment TEDS Stockings on Every AM, Off at HS Progression Toward Outcome/Goals Progressing Outcome/Goals Met Remains Free of DVT Complies with DVT Prophylaxis /Treatment Demonstrates Knowledge of DVT Prevention/ Treatment TEDS Stockings on Every AM, Off at HS Discharge Planning - Improve/Maintain Start: 11/28/17 15:40 Freq: DAILY Status: Active Target: Protocol: Activity Type Activity Date Activity User E-Sign Co-Sign Detail Recorded Client Recorded Date Recorded By Document 12/04/17 21:00 [id number] [id number] 12/04/17 23:23 [id number] 12/04/17 21:00 PMRU Outcome: Discharge Planning Update Patient Family No Outcome/Goals Demonstrates Understanding of Discharge Plan Education-Improve/Maintain Start: 11/28/17 15:40 Freq: QSHIFT Status: Active Target: Protocol: Activity Type Activity Date Activity User E-Sign Co-Sign Detail Recorded Client Recorded Date Recorded By Document 12/05/17 09:21 [id number] [email or web address] 12/05/17 09:23 [id number] 12/05/17 09:21 PMRU Outcome: Education Outcome/Goals Demonstrates Skills Encourage Questions Progression Toward Outcome/Goals Progressing Outcome/Goals Met Demonstrates Skills Required to Manage Self Care to Their Ability /GI-Improve/Maintain Start: 11/28/17 15:40 Freq: QSHIFT Status: Active Target: Protocol: Activity Type Activity Date Activity User E-Sign Co-Sign Detail Recorded Client Recorded Date Recorded By Document 12/05/17 09:21 [id number] [id number] 12/05/17 09:23 [id number] 12/05/17 09:21 PMRU Outcome: Genitourinary/ Gastrointestinal Genitourinary- Outcome/Goals Maintain/ Achieve Adequate Urinary Output Remain Free of Hospital- Acquired UTI Gastrointestinal-Outcome/Goals Maintain/ Achieve Bowel Regularity in Accordance with Pt's Baseline Prevent Constipation Progression Toward Outcome/Goals - Progressing Progression Toward Outcome/Goals - GI Progressing Genitourinary- Outcome/Goals Met Maintain/ Achieve Adequate Urinary Output Gastrointestinal-Outcome/Goals Met Maintain/ Achieve Bowel Regularity in Accordance with Pt's Baseline Medication Administration Start: 11/28/17 15:40 Freq: QSHIFT Status: Active Target: Protocol: Activity Type Activity Date Activity User E-Sign Co-Sign Detail Recorded Client Recorded Date Recorded By Document 12/05/17 09:21 [id number] [email or web address] 12/05/17 09:23 [id number] 12/05/17 09:21 PMRU Outcome: Medication Administration Assess Patient Knowledge/Teach Med Yes Education for all Meds Outcome/Goals Patient Independent with Medication Administration at Home Demonstrates Understanding Progression Towards Outcome/Goals Progressing Is Patient Going Home on Lovenox? No Mobility- Improve/Maintain Start: 11/28/17 14:09 Freq: DAILY Status: Active Target: Protocol: Activity Type Activity Date Activity User E-Sign Co-Sign Detail Recorded Client Recorded Date Recorded By Document 11/28/17 14:09 [id number] 11/28/17 14:10 [id number] 11/28/17 14:09 PMRU Outcome: Mobility Physical Therapy Evaluation and Yes Treatment Activity OOB with Assistance Yes WBAT Yes Device Yes: FWW Assistance Yes: CGA Patient to be seen 5x/wk for 60-120 min/ Therex day for: Mobility Training Gait Training Balance Outcome/Goals Maintain/ Achieve Baseline Mobility Status Improve Mobility Status Demonstrates Proper Use of Assistive Devices Free from Complications of Immobility Bed Mobility Yes: Ind Transfers Yes: Mod I with walker Gait x ft Yes: Mod I with walker x150ft Up/Down Stairs Yes: Supervision x5 steps, 1 rail With HEP Yes Pain/Comfort- Improve/Maintain Start: 11/28/17 15:40 Freq: QSHIFT Status: Complete Target: Protocol: Activity Type Activity Date Activity User E-Sign Co-Sign Detail Recorded Client Recorded Date Recorded By Document 12/03/17 08:00 [id number] 12/03/17 11:22 [id number] 12/03/17 08:00 PMRU Outcome: Pain/Comfort Outcome/Goals Demonstrates Knowledge and Use of Available Comfort Measures Achieves Acceptable Comfort/Pain Level as Determined by Patient/Condit Maintain Comfort Level Allowing Patient to Fully Participate in Rehab Outcome/Goals Met Demonstrates Knowledge and Use of Available Comfort Measures Maintain Comfort Level Allowing Patient to Fully Participate in Rehab Safety- Improve/Maintain Start: 11/28/17 15:40 Freq: QSHIFT Status: Active Target: Protocol: Activity Type Activity Date Activity User E-Sign Co-Sign Detail Recorded Client Recorded Date Recorded By Document 12/05/17 09:21 [id number] [id number] 12/05/17 09:23 [id number] 12/05/17 09:21 PMRU Outcome: Safety Outcome/Goals Remain Free of Injury or Harm Cooperates with Safety Measures for Least Restrictive Environment Prevent Falls/ Injury Progression Toward Outcome/Goals Progressing Outcome/Goals Met Remain Free of Injury or Harm Cooperates with Safety Measures for Least Restrictive Environment Prevent Falls/ Injury Skin- Improve/Maintain Start: 11/28/17 15:40 Freq: QSHIFT Status: Active Target: Protocol: Activity Type Activity Date Activity User E-Sign Co-Sign Detail Recorded Client Recorded Date Recorded By Document 12/05/17 09:21 [id number] [id number] 12/05/17 09:23 [id number] 12/05/17 09:21 PMRU Outcome: Skin Skin Risk Level Low Dressing Change Comments incision benign , healing - MEAT HOSTESS Outcome/Goals Maintain/ Improve Skin Intergrity Free from Decubitus Surgical Incisions Healing Progression Toward Outcome/Goals Progressing Outcome/Goals Met Maintain/ Improve Skin Intergrity Free from Decubitus Surgical Incisions Healing Medicine Note: Length of Stay: 1 day Anticipated Discharge Destination: Home Tentative Discharge Date: 12/06/17 Discharged to: Home
--- NOTE | 2017-12-05 17:53 | PN ---
Progress Note Date of Service: 12/05/17 Note: SOCRATES PAREDES was visited. Therapy notes read and reviewed. She was discussed in interdisciplinary team rounds. Her mentation has cleared and she is moving well. Plan is to discharge her home tomorrow Current Medications: Active Medications Generic Name Dose Route Start Last Admin Trade Name Freq PRN Reason Stop Dose Admin Acetaminophen 650 mg 11/28/17 12:00 12/05/17 14:33 Tylenol Tab* PO 650 mg Q6H PRN Administration FEVER/PAIN Al Hydrox/Mg Hydrox/Simethicone 30 ml 11/29/17 10:31 Maalox Plus* PO Q6H PRN DYSPEPSIA Apixaban 2.5 mg 11/28/17 21:00 12/05/17 07:28 Eliquis PO 2.5 mg BID JUNIOR Administration Cetirizine HCl 10 mg 11/29/17 09:00 12/05/17 07:29 Zyrtec* PO 10 mg DAILY JUNIOR Administration Protocol Docusate Sodium 100 mg 12/03/17 09:14 12/05/17 07:28 Colace Cap* PO 100 mg BID PRN Administration CONSTIPATION Furosemide 20 mg 11/29/17 09:00 12/05/17 07:29 Lasix Tab* PO 20 mg DAILY JUNIOR Administration Hydrocortisone 1 applic 12/04/17 08:58 12/05/17 09:55 Hytone Cream 1%* TOPICAL 1 applic TID PRN Administration rectal irritation Lisinopril 5 mg 11/29/17 09:00 12/05/17 07:29 Prinivil Tab* PO 5 mg DAILY JUNIOR Administration Magnesium Hydroxide 30 ml 11/28/17 12:00 12/05/17 16:05 Milk Of Magnesia Liq* PO 30 ml Q6H PRN Administration CONSTIPATION Methocarbamol 750 mg 11/28/17 12:09 12/01/17 20:50 Robaxin Tab* PO 750 mg Q6H PRN Administration SPASMS Metoprolol Tartrate 25 mg 11/28/17 21:00 12/05/17 07:29 Lopressor Tab* PO 25 mg BID JUNIOR Administration Ondansetron HCl 4 mg 11/29/17 10:31 Zofran Odt Tab* PO Q6H PRN NAUSEA Potassium Chloride 20 meq 11/28/17 18:00 12/04/17 17:56 Klor Con Er Tab* PO 20 meq 1800 JUNIOR Administration Senna 2 tab 11/28/17 12:00 Senokot Tab* PO BEDTIME PRN CONSTIPATION Vital Signs: Vital Signs Temp Pulse Resp BP Pulse Ox 97.9 F 72 16 142/64 100 12/05/17 16:30 12/05/17 16:30 12/05/17 16:30 12/05/17 16:30 12/05/17 16:42 Exam: GENERAL: Alert and appropriate. LUNGS: Clear to auscultation bilaterally. HEART: regular rate and rhythm ABDOMEN: Soft, + bowel sounds, non-tender, non-distended EXTREMITIES: Mild bilateral pedal edema. Left thigh swollen as expected post- op. Left hip wound C/D/I NEUROLOGIC: alert and oriented. Motor exam non focal. Assessment/Plan: 1. Left total hip arthroplasty: PT/OT. WBAT 2. Acute blood loss anemia: H/H stable now. 3. Atrial Fib: Lopressor/Eliquis 4. 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 Na+ stable. 5. DVT Prophylaxis: Eliquis 6. Advanced Directives: Full code 7. Delirium: Resolved off opioids. These may have contributed to SIADH 8. Urine retention: d/c'd helm 12/02 and voiding normally. Resolved. May have been secondary to opioids as well. 9. Diarrhea: bowel meds all to prn. Hydrocortisone cream prn for irritation post prior diarrhea 10. Advanced directives: full code. 12/05/17 17:54
[2017-12-05] MEDS ORDERED: Bisacodyl SUPP* 10 MG SUPP PR PRN (18:30)
[2017-12-05] MEDS ORDERED: Polyethylene Glycol 3350* 17 GM PACKET PO PRN (18:31)
[2017-12-05] MEDS: Potassium Chlor TAB* 20 MEQ TAB.ER PO SCH (18:46)
[2017-12-05] MEDS ORDERED: Sodium Phosphate ADULT ENEMA* 118 ml bottle PR PRN (20:58)
[2017-12-05] MEDS ORDERED: Ondansetron ODT TAB* 4 MG PO ONE (21:00)
[2017-12-06 04:55] LABS: ABS Basophils 0.1 10^3/ul (0-0.2); ABS Eosinophils 0 10^3/ul (0-0.6); ABS Lymphocytes 0.8 10^3/ul (1.0-4.8); ABS Nucleated RBC 0 10^3/ul; Eosinophil % 0.1 % (0-6); Hematocrit 25 % (35-47); Hemoglobin 8.5 g/dl (12.0-16.0); Lymphocyte % 4.5 % (25-47); Mean Corpuscular HGB Conc 34 g/dl (31-36); Mean Corpuscular Hemoglobin 30 pg (27-31); Mean Corpuscular Volume 89 fL (80-97); Mean Platelet Volume 6.8 um3 (7.4-10.4); Nucleated Red Blood Cells % 0; Platelet Count 257 10^3/ul (150-450); Red Blood Count 2.83 10^6/ul (4.00-5.40); Red Cell Distribution Width 15 % (10.5-15); White Blood Count 16.7 10^3/ul (3.5-10.8)
[2017-12-06 05:11] LABS: EGFR Non-African American 86.8 (>60)
[2017-12-06] MEDS: Metoprolol Tartrate TAB* 25 MG PO SCH ×2 (08:06→19:46)
[2017-12-06] MEDS: Furosemide TAB* 20 MG PO SCH (08:06)
[2017-12-06] MEDS: Lisinopril TAB* 5 MG PO SCH (08:06)
[2017-12-06] MEDS: Cetirizine* 10 MG TAB PO SCH (08:06)
[2017-12-06] MEDS: Apixaban* 2.5 MG TAB PO SCH ×2 (08:06→19:47)
[2017-12-06 13:40] LABS: Urine Appearance Clear; Urine Blood 1+ (Negative); Urine Color Straw; Urine Ketones Negative (Negative); Urine Protein Negative (Negative); Urine Red Blood Cell 2+(6-10/hpf) (Absent); Urine Specific Gravity 1.008 (1.010-1.030); Urine Urobilinogen Negative (Negative); Urine White Blood Cell 2+(11-20/hpf) (Absent)
[2017-12-06] MEDS: Potassium Chlor TAB* 20 MEQ TAB.ER PO SCH (17:29)
[2017-12-06] MEDS: Ciprofloxacin TAB* 250 MG PO SCH (19:47)
[2017-12-06] MEDS: Hydrocortisone 1% CREAM* 30 GM TUBE TOPICAL PRN (19:52)
--- NOTE | 2017-12-06 22:49 | PN ---
Progress Note Date of Service: 12/06/17 Note: SOCRATES PAREDES was visited. Therapy notes read and reviewed. She was supposed to go home today but her WBC on a routine blood draw was 16.7K. She was asymptomatic but had a catheter, so we checked a urine which was consistent with a UTI. Will start Cipro and wait for culture. Current Medications: Active Medications Generic Name Dose Route Start Last Admin Trade Name Freq PRN Reason Stop Dose Admin Acetaminophen 650 mg 11/28/17 12:00 12/05/17 14:33 Tylenol Tab* PO 650 mg Q6H PRN Administration FEVER/PAIN Al Hydrox/Mg Hydrox/Simethicone 30 ml 11/29/17 10:31 Maalox Plus* PO Q6H PRN DYSPEPSIA Apixaban 2.5 mg 11/28/17 21:00 12/06/17 19:47 Eliquis PO 2.5 mg BID JUNIOR Administration Bisacodyl 10 mg 12/05/17 18:30 12/05/17 19:16 Dulcolax Supp* [place] 10 mg DAILY PRN Administration CONSTIPATION Cetirizine HCl 10 mg 11/29/17 09:00 12/06/17 08:06 Zyrtec* PO 10 mg DAILY JUNIOR Administration Protocol Ciprofloxacin 250 mg 12/06/17 21:00 12/06/17 19:47 Cipro Tab* PO 250 mg Q12HR JUNIOR Administration Docusate Sodium 100 mg 12/03/17 09:14 12/05/17 07:28 Colace Cap* PO 100 mg BID PRN Administration CONSTIPATION Furosemide 20 mg 11/29/17 09:00 12/06/17 08:06 Lasix Tab* PO 20 mg DAILY JUNIOR Administration Hydrocortisone 1 applic 12/04/17 08:58 12/06/17 19:52 Hytone Cream 1%* TOPICAL 1 applic TID PRN Administration rectal irritation Lisinopril 5 mg 11/29/17 09:00 12/06/17 08:06 Prinivil Tab* PO 5 mg DAILY JUNIOR Administration Magnesium Hydroxide 30 ml 11/28/17 12:00 12/05/17 16:05 Milk Of Magnesia Liq* PO 30 ml Q6H PRN Administration CONSTIPATION Methocarbamol 750 mg 11/28/17 12:09 12/01/17 20:50 Robaxin Tab* PO 750 mg Q6H PRN Administration SPASMS Metoprolol Tartrate 25 mg 11/28/17 21:00 12/06/17 19:46 Lopressor Tab* PO 25 mg BID JUNIOR Administration Polyethylene Glycol/Electrolytes 17 gm 12/05/17 18:31 12/05/17 19:45 Miralax* PO 17 gm DAILY PRN Administration CONSTIPATION Potassium Chloride 20 meq 11/28/17 18:00 12/06/17 17:29 Klor Con Er Tab* PO 20 meq 1800 JUNIOR Administration Senna 2 tab 11/28/17 12:00 Senokot Tab* PO BEDTIME PRN CONSTIPATION Sodium Biphosphate/Sodium Phosphate 1 bottle 12/05/17 20:58 12/05/17 21:33 Fleet Enema* [place] 1 bottle DAILY PRN Administration CONSTIPATION Vital Signs: Vital Signs Temp Pulse Resp BP Pulse Ox 97.9 F 70 18 132/63 100 12/06/17 15:46 12/06/17 15:46 12/06/17 15:46 12/06/17 15:46 12/06/17 18:18 Lab Results: Laboratory Results - last 24 hr 12/06/17 12/06/17 12/06/17 04:32 04:32 13:13 WBC 16.7 H RBC 2.83 L Hgb 8.5 L Hct 25 L MCV 89 MCH 30 MCHC 34 RDW 15 Plt Count 257 MPV 6.8 L Neut % (Auto) 89.3 H Lymph % (Auto) 4.5 L Dunn % (Auto) 5.7 Eos % (Auto) 0.1 Baso % (Auto) 0.4 Absolute Neuts (auto) 15.0 H Absolute Lymphs (auto) 0.8 L Absolute Monos (auto) 1.0 H Absolute Eos (auto) 0 Absolute Basos (auto) 0.1 Absolute Nucleated RBC 0 Nucleated RBC % 0 Sodium 128 L Potassium 4.4 Chloride 95 L Carbon Dioxide 26 Anion Gap 7 BUN 13 Creatinine 0.65 Est GFR ( Amer) 105.1 Est GFR (Non-Af Amer) 86.8 BUN/Creatinine Ratio 20.0 Glucose 133 H Calcium 8.2 L Total Bilirubin 0.60 AST 23 ALT 29 Alkaline Phosphatase 74 Total Protein 6.0 L Albumin 3.3 Globulin 2.7 Albumin/Globulin Ratio 1.2 Urine Color Straw Urine Appearance Clear Urine pH 8.0 Ur Specific [place] 1.008 L Urine Protein Negative Urine Ketones Negative Urine Blood 1+ A Urine Nitrate Negative Urine Bilirubin Negative Urine Urobilinogen Negative Ur Leukocyte Esterase 1+ A Urine WBC (Auto) 2+(11-20/hpf) A Urine RBC (Auto) 2+(6-10/hpf) A Urine Bacteria Absent Urine Yeast Present A Urine Glucose Negative Exam: GENERAL: Alert and appropriate. LUNGS: Clear to auscultation bilaterally. HEART: regular rate and rhythm ABDOMEN: Soft, + bowel sounds, non-tender, non-distended EXTREMITIES: Mild bilateral pedal edema. Left thigh swollen as expected post- op. Left hip wound C/D/I NEUROLOGIC: alert and oriented. Motor exam non focal. Assessment/Plan: 1. Left total hip arthroplasty: PT/OT. WBAT 2. Acute blood loss anemia: H/H stable now. 3. Likely UTI: Cipro 250 BID 4. Elevated WBC: Likely due to UTI. Recheck in am 5. Atrial Fib: Lopressor/Eliquis 6. 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 Na+ stable. 7. DVT Prophylaxis: Eliquis 8. Advanced Directives: Full code 9 Urine retention: d/c'd helm 12/02 and voiding normally. Resolved. May have been secondary to opioids as well. 10. Advanced directives: full code. 12/06/17 22:49
[2017-12-07 05:43] VITALS: BP 153/82
[2017-12-07 05:53] LABS: ABS Basophils 0 10^3/ul (0-0.2); ABS Eosinophils 0.2 10^3/ul (0-0.6); ABS Lymphocytes 1.2 10^3/ul (1.0-4.8); ABS Monocytes 0.7 10^3/ul (0-0.8); ABS Neutrophils 4.1 10^3/ul (1.5-7.7); ABS Nucleated RBC 0 10^3/ul; Eosinophil % 3.5 % (0-6); Hematocrit 25 % (35-47); Hemoglobin 8.5 g/dl (12.0-16.0); Lymphocyte % 18.9 % (25-47); Mean Corpuscular HGB Conc 34 g/dl (31-36); Mean Corpuscular Hemoglobin 30 pg (27-31); Mean Corpuscular Volume 89 fL (80-97); Mean Platelet Volume 6.8 um3 (7.4-10.4); Nucleated Red Blood Cells % 0; Platelet Count 265 10^3/ul (150-450); Red Blood Count 2.81 10^6/ul (4.00-5.40); Red Cell Distribution Width 15 % (10.5-15); White Blood Count 6.3 10^3/ul (3.5-10.8)
[2017-12-07] MEDS: Cetirizine* 10 MG TAB PO SCH (09:41)
[2017-12-07] MEDS: Ciprofloxacin TAB* 250 MG PO SCH (09:41)
[2017-12-07] MEDS: Apixaban* 2.5 MG TAB PO SCH (09:41)
[2017-12-07] MEDS: Lisinopril TAB* 5 MG PO SCH (09:42)
[2017-12-07] MEDS: Metoprolol Tartrate TAB* 25 MG PO SCH (09:42)
[2017-12-07] MEDS: Furosemide TAB* 20 MG PO SCH (09:42)
--- NOTE | 2017-12-07 13:17 | PN ---
Progress Note Date of Service: 12/07/17 Note: SOCRATES PAREDES was visited. Therapy notes read and reviewed. WBC has normalized. U/A results consistent with a UTI. Will discharge home today Current Medications: Active Medications Generic Name Dose Route Start Last Admin Trade Name Freq PRN Reason Stop Dose Admin Acetaminophen 650 mg 11/28/17 12:00 12/05/17 14:33 Tylenol Tab* PO 650 mg Q6H PRN Administration FEVER/PAIN Al Hydrox/Mg Hydrox/Simethicone 30 ml 11/29/17 10:31 Maalox Plus* PO Q6H PRN DYSPEPSIA Apixaban 2.5 mg 11/28/17 21:00 12/07/17 09:41 Eliquis PO 2.5 mg BID JUNIOR Administration Bisacodyl 10 mg 12/05/17 18:30 12/05/17 19:16 Dulcolax Supp* NV 10 mg DAILY PRN Administration CONSTIPATION Cetirizine HCl 10 mg 11/29/17 09:00 12/07/17 09:41 Zyrtec* PO 10 mg DAILY JUNIOR Administration Protocol Ciprofloxacin 250 mg 12/06/17 21:00 12/07/17 09:41 Cipro Tab* PO 250 mg Q12HR JUNIOR Administration Docusate Sodium 100 mg 12/03/17 09:14 12/05/17 07:28 Colace Cap* PO 100 mg BID PRN Administration CONSTIPATION Furosemide 20 mg 11/29/17 09:00 12/07/17 09:42 Lasix Tab* PO 20 mg DAILY JUNIOR Administration Hydrocortisone 1 applic 12/04/17 08:58 12/06/17 19:52 Hytone Cream 1%* TOPICAL 1 applic TID PRN Administration rectal irritation Lisinopril 5 mg 11/29/17 09:00 12/07/17 09:42 Prinivil Tab* PO 5 mg DAILY JUNIOR Administration Magnesium Hydroxide 30 ml 11/28/17 12:00 12/05/17 16:05 Milk Of Magnesia Liq* PO 30 ml Q6H PRN Administration CONSTIPATION Methocarbamol 750 mg 11/28/17 12:09 12/01/17 20:50 Robaxin Tab* PO 750 mg Q6H PRN Administration SPASMS Metoprolol Tartrate 25 mg 11/28/17 21:00 12/07/17 09:42 Lopressor Tab* PO 25 mg BID JUNIOR Administration Polyethylene Glycol/Electrolytes 17 gm 12/05/17 18:31 12/05/17 19:45 Miralax* PO 17 gm DAILY PRN Administration CONSTIPATION Potassium Chloride 20 meq 11/28/17 18:00 12/06/17 17:29 Klor Con Er Tab* PO 20 meq 1800 JUNIOR Administration Senna 2 tab 11/28/17 12:00 Senokot Tab* PO BEDTIME PRN CONSTIPATION Sodium Biphosphate/Sodium Phosphate 1 bottle 12/05/17 20:58 12/05/17 21:33 Fleet Enema* NV 1 bottle DAILY PRN Administration CONSTIPATION Vital Signs: Vital Signs Temp Pulse Resp BP Pulse Ox 98.1 F 74 16 153/82 100 12/07/17 05:28 12/07/17 05:28 12/07/17 05:28 12/07/17 05:28 12/07/17 05:28 Lab Results: Laboratory Results - last 24 hr 12/06/17 12/07/17 13:13 05:42 WBC 6.3 RBC 2.81 L Hgb 8.5 L Hct 25 L MCV 89 MCH 30 MCHC 34 RDW 15 Plt Count 265 MPV 6.8 L Neut % (Auto) 65.2 Lymph % (Auto) 18.9 L [place] % (Auto) 11.7 H Eos % (Auto) 3.5 Baso % (Auto) 0.7 Absolute Neuts (auto) 4.1 Absolute Lymphs (auto) 1.2 Absolute Monos (auto) 0.7 Absolute Eos (auto) 0.2 Absolute Basos (auto) 0 Absolute Nucleated RBC 0 Nucleated RBC % 0 Urine Color Straw Urine Appearance Clear Urine pH 8.0 Ur Specific [place] 1.008 L Urine Protein Negative Urine Ketones Negative Urine Blood 1+ A Urine Nitrate Negative Urine Bilirubin Negative Urine Urobilinogen Negative Ur Leukocyte Esterase 1+ A Urine WBC (Auto) 2+(11-20/hpf) A Urine RBC (Auto) 2+(6-10/hpf) A Urine Bacteria Absent Urine Yeast Present A Urine Glucose Negative Exam: GENERAL: Alert and appropriate. LUNGS: Clear to auscultation bilaterally. HEART: regular rate and rhythm ABDOMEN: Soft, + bowel sounds, non-tender, non-distended EXTREMITIES: Mild bilateral pedal edema. Left thigh swollen as expected post- op. Left hip wound C/D/I NEUROLOGIC: alert and oriented. Motor exam non focal. Assessment/Plan: 1. Left total hip arthroplasty: PT/OT. WBAT 2. Acute blood loss anemia: H/H stable now. 3. Likely UTI: Cipro 250 BID, day 2 4. Elevated WBC: Normal today 5. Atrial Fib: Lopressor/Eliquis 6. 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 Na+ stable. 7. DVT Prophylaxis: Eliquis 8. Advanced Directives: Full code 9 Urine retention: Resolved. May have been secondary to opioids as well. 10. Advanced directives: full code. 11. Disposition: Discharge home today 12/07/17 13:17
--- NOTE | 2017-12-09 01:50 | DS ---
CC: Dr. Franny Odom DISCHARGE SUMMARY: DATE OF ADMISSION: 11/28/17 DATE OF DISCHARGE: 12/07/17 DISCHARGE DIAGNOSES: 1. Left total hip replacement. 2. Urinary tract infection. 3. Atrial fibrillation. 4. 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 5. Acute blood loss anemia. 6. Urinary retention. HISTORY OF ILLNESS AND HOSPITAL COURSE: For complete history of the events leading up to her rehab stay, please see the history and physical dictated by me on 11/28/17. While on the rehab unit, the patient remained fairly stable from medical point of view. She was initially confused secondary to opioid analgesics. Her opioids were held and her mentation slowly cleared. Her sodium appeared to be stable in the 128 range. Her fluid restriction was liberalized to 1300 cc a day and then 1500 cc a day. The patient had an episode of urinary retention where she was having difficulty voiding. A Lanza catheter was placed and 875 cc of urine came out. Her catheter was then clamped and removed. The patient on 12/06/17 on routine blood draws was found to have a white blood cell count of 16,000, which was new. Urinalysis was done , which was consistent with urinary tract infection. She was started on ciprofloxacin. On 12/07/17, the white blood count was down to 6000 and she was discharged home. Her urine later grew Enterobacter, which was susceptible to Cipro. The patient was otherwise medically stable. She was seen by both Physical and Occupational Therapy and made good gains with both disciplines. With physical therapy at the time of admission, she required contact guard to transfer. She was able to ambulate about 100 feet with contact guard. With occupational therapy at the time of admission, the patient was supervision upper body dressing, min assist lower body dressing. She was min assist for toileting, contact guard for toilet transfers. By the time of discharge, she was independent in all activities, ambulating 150 feet independently, going up and down 12 steps independently and independent with all of her activities of daily living. The patient was discharged home 12/07/17. DISCHARGE DIET: Regular. DISCHARGE MEDICATIONS: 1. Cipro 250 mg twice daily for 4 days. 2. Eliquis 2.5 mg orally twice daily. 3. Zyrtec 10 mg daily. 4. Lasix 20 mg daily. 5. Lisinopril 5 mg daily. 6. Lopressor 25 mg twice daily. 7. Potassium chloride 20 mEq at 6 p.m. SERVICES AFTER DISCHARGE: Through visiting nurse service. She will have home physical therapy and home health aide, home nursing. Follow up with Dr. Criss Kim in 7 to 10 days. She will also follow up with primary care doctor, Dr. Franny Odom. Time for this discharge was approximately 55 minutes, greater than half of that spent with the patient discussing d/c plans including antibiotic use, and other medications and rehab after discharge [id number]/[facility] #: [id number] [facility]ITALHoda
== END 2017-12-07 13:30 | disposition home health service (06) | DRG 560 ==
LOC: PMRU 11:13
PROVIDERS: ADMIT Physical Medicine & Rehabilitation; ATTEND Physical Medicine & Rehabilitation
PROC: F07Z5ZZ Bed Mobility Treatment (ICD-10-PCS; 2017-11-28)
PROC: F07Z9ZZ Gait Training/Functional Ambulation Treatment (ICD-10-PCS; 2017-11-28)
PROC: F07Z8ZZ Transfer Training Treatment (ICD-10-PCS; 2017-11-28)
PROC: F08Z0ZZ Bathing/Showering Techniques Treatment (ICD-10-PCS; 2017-11-28)
PROC: F08Z1ZZ Dressing Techniques Treatment (ICD-10-PCS; 2017-11-28)
PROC: F08Z3ZZ Feeding/Eating Treatment (ICD-10-PCS; 2017-11-28)
PROC: 30233N1 Transfusion of Nonautologous Red Blood Cells into Peripheral Vein, Percutaneous Approach (ICD-10-PCS; principal; 2017-11-29)
DX: Z47.1 Aftercare following joint replacement surgery (principal); N39.0 Urinary tract infection, site not specified; E22.2 Syndrome of inappropriate secretion of antidiuretic hormone; D62 Acute posthemorrhagic anemia; Z96.642 Presence of left artificial hip joint; B96.89 Other specified bacterial agents as the cause of diseases classified elsewhere; I48.0 Paroxysmal atrial fibrillation; I10 Essential (primary) hypertension; R33.9 Retention of urine, unspecified; I34.0 Nonrheumatic mitral (valve) insufficiency; R41.0 Disorientation, unspecified; T40.2X5A Adverse effect of other opioids, initial encounter; Y92.230 Patient room in hospital as the place of occurrence of the external cause; X58.XXXA Exposure to other specified factors, initial encounter; R19.7 Diarrhea, unspecified; Z95.0 Presence of cardiac pacemaker; Z79.01 Long term (current) use of anticoagulants; Z79.899 Other long term (current) drug therapy; Z88.5 Allergy status to narcotic agent
CPT/HCPCS: 36415; 80048; 80053; 81003; 81015; 85025; 86850; 86900; 86901; 86922; 87077; 87086; 87186; A9270-GY; G0515-GO; P9040

== ENCOUNTER 2018-09-21 15:53 | Emergency (ER) | payer MEDICARE, BC ==
--- NOTE | 2018-09-21 17:22 | ED ---
Throat Pain/Nasal Congestion - HPI Summary HPI Summary: An 87 y/o female accompanied by her niece Vonnie presents to [facility] with a chief complaint of left sided epistaxis. She had her first episode of epistaxis recently when she was shopping the afternoon of 09/20/18. She claims that it stopped overnight after pinching her nose, but 12 hours later at 04:00 09/21/18 , she was bleeding from her left nostril and it stopped after pinching her nose. Then at 15:00 her left nostril started bleeding again and has not stopped from pinching her nose. She did not sneeze. She was bleeding clots on the way to the ED. At triage she rated her pain as a 0/10 in severity and it appears that her nosebleed has stopped. She takes 2.5 mg Eliquis BID and her reported BP at triage was 187/113. She last took Eliquis at 09:00 09/21/18. She claims that her usual BP is 170/80. She denies any headache, N/V, CP, urinary symptoms or leg pain, but c/o SOB. She also notes that it feels like her nose is "all stuffed up but able to breathe". She has a Hx of anemia, atrial fibrillation, HTN, hypothroid, hyponatremia and anemia. She denies a FHx of DM, but reports a FHx of heart failure and cancer. She notes that she had bleeding from her left nostril 4 years ago after she broke her nose. She had no surgery on it, but saw Dr. Palma from ENT and had a nasal packing. She has not had any nosebleeds since the nasal fracture. Pt also knows that she has a deviated septum. Pt takes Flonase chronically, and the past few days has taken Zyrtec. She reports a SHx of a left hip replacement. Vital signs while at triage: HR 81 bpm, BP 187/113, O2 Sat 99% - History of Current Complaint Chief Complaint: EDEpistaxis Time Seen by Provider: 09/21/18 17:06 Hx Obtained From: Patient Onset/Duration: Sudden Onset, Lasting Hours, Resolved Severity: Moderate Associated Signs And Symptoms: Positive: Negative Cough: None Related History: Other (Noted In Comments) - prior nasal fracture, deviated septum - Allergies/Home Medications Allergies/Adverse Reactions: Allergies Allergy/AdvReac Type Severity Reaction Status Date / Time codeine AdvReac Severe Nausea Verified 11/23/17 12:55 PMH/Surg Hx/FS Hx/Imm Hx Previously Healthy: No Endocrine/Hematology History: Reports: Hx Diabetes - BORDERLINE, Hx Thyroid Disease - Hx - no treatment at this time Cardiovascular History: Reports: Hx Coronary Artery Disease, Hx Hypercholesterolemia, Hx Hypertension, Hx Pacemaker/ICD - 10/, Hx Syncope, Other Cardiovascular Problems/Disorders - "slight build up of plaque in carotid artery" Denies: Hx Auto Implanted Cardiovert Defib, Hx Cardiac Arrest, Hx Deep Vein Thrombosis Respiratory History: Reports: Hx Pneumonia GI History: Reports: Other GI Disorders - hx blood in stool, no colonoscopy Musculoskeletal History: Reports: Hx Arthritis - hands and hip, Hx Bursitis - right hip- resolved Denies: Hx Back Problems Sensory History: Reports: Hx Contacts or Glasses Denies: Hx Cataracts - bilateral removal, Hx Hearing Aid, Hx Hearing Problem Opthamlomology History: Reports: Hx Contacts or Glasses Denies: Hx Cataracts - bilateral removal Psychiatric History: Reports: Hx Anxiety - Cancer History Hx Chemotherapy: No - Surgical History Surgery Procedure, Year, and Place: appendectomy. bilateral cataract removal. left hip replacement. Hx Anesthesia Reactions: No Infectious Disease History: No Infectious Disease History: Denies: Traveled Outside the [place] in Last 30 Days - Family History Known Family History: Positive: Cardiac Disease - CHF, Other - cancer Negative: Diabetes - Social History Lives: With Family - niece, Vonnie Alcohol Use: Occasionally Hx Substance Use: No Substance Use Type: Reports: None Hx Tobacco Use: No Smoking Status (MU): Former Smoker Type: Cigarettes Have You Smoked in the Last Year: No Review of Systems Negative: Fever Positive: Epistaxis, Other - positive nasal congestion Negative: Chest Pain Positive: Shortness Of Breath Negative: Vomiting, Nausea Genitourinary: Negative Positive: Other - negative: leg pain Skin: Negative Negative: Headache Psychological: Normal All Other Systems Reviewed And Are Negative: Yes Physical Exam - Summary Physical Exam Summary: Appearance: well-appearing, no pain distress, well-nourished, hypertensive Skin: Warm, color reflects adequate perfusion, dry Head: Normal Head/Face inspection, atraumatic Eyes: Conjunctiva clear ENT: No blood in posterior pharynx, nasal passages are clear, no dried blood, no bleeding in right nostril Neck: Supple, no nodes, no JVD Respiratory: Lungs clear, normal breath sounds, no respiratory distress Cardio: RRR, No murmur, pulses normal, brisk capillary refill Abdomen: Soft, nontender Bowel sounds: Present Musculoskeletal: Strength Intact/ROM intact, no calf tenderness, no edema. Psychological: Normal Neuro: Alert, muscle tone normal, no focal deficit Triage Information Reviewed: Yes Vital Signs On Initial Exam: Initial Vitals Temp Pulse Resp BP Pulse Ox 99.0 F 81 18 187/113 99 09/21/18 15:55 09/21/18 15:55 09/21/18 15:55 09/21/18 15:55 09/21/18 15:55 Vital Signs Reviewed: Yes Procedures - Procedure Summary Procedure Summary: 4.5 cm anterior rapid rhino no dried blood no bleeding in right nostril No blood in posterior pharynx mustache dressing applied slight ooze at left nostril and posterior pharynx. Diagnostics - Vital Signs Vital Signs Temp Pulse Resp BP Pulse Ox 09/21/18 15:55 99.0 F 81 18 187/113 99 - Laboratory Result Diagrams: 09/21/18 17:22 09/21/18 17:22 Lab Statement: Any lab studies that have been ordered have been reviewed, and results considered in the medical decision making process. Re-Evaluation - Re-Evaluation First Eval Re-Evaluation Time: 19:23 Change: Unchanged Comment: HR 70 bpm, O2 Sat 99%, BP 147/87. reports that her nose has not bled again. After rhino rocket procedure Pt has a BP of 222/114. Second Eval Re-Evaluation Time: 20:30 Change: Unchanged Comment: BP 170/94 Third Eval Re-Evaluation Time: 20:32 Change: Unchanged Comment: Mustache dressing moderate blood. Rhino rocket saturated with blood. Patient is comfortable. HR 72 bpm, O2 Sat 98%, BP 170/94 Fourth Eval Re-Evaluation Time: 21:13 Change: Unchanged Comment: BP is 140/81 and she agrees to transfer Fifth Eval Re-Evaluation Time: 23:00 Change: Unchanged Comment: Dr. Renteria, ENT, [facility] recommends TXA and Afrin, but [facility] does not have a bed if pt needs to be admitted, so will give meds as recommended and continue with transfer to [facility] as originally planned, in case pt needs admission due to continued nosebleed on an irreversible anticoagulant, or for uncontrolled HTN with a nosebleed on a NOAC. EENT Course/Dx - Course Course Of Treatment: An 87 y/o female presents to [facility] with a chief complaint of epistaxis. The patient was bleeding clots en route to the ED. The physical exam revealed no blood in the posterior pharynx, nasal passages are clear. no dried blood no bleeding in right nostril. In the ED course the patient was given 10mg Labetalol IV at 19:50. Bloodwork and chemistries obtained. INR 1.28, APTT 40.8, Hgb 12.3, Sodium 131, Chloride 98, BUN/Creatinine Ratio 21.6, Glucose 107 at 17:22. Urines obtained. Urine Protein 1+, Trace urine ketones, Urine Blood 1+, Urine RBC 2+, Ur Squamous Epith Cells present at 22:19. Rhino Rocket procedure done with 4.5 cm Rhinorocket. Nosebleed was controlled prior to Rhinorocket but because pt was on NOAC, and potential for re-bleed, as she was yesterday and today, and her HTN, Rhinorocket was placed. Shortly after Rhinorocket placed, pt's left nostril began to bleed slowly. Mustache dressing moderate blood. Rhino rocket saturated with blood, and still oozing and blood in pt's posterior pharynx. Patient is comfortable. Discussed case with Dr. Edwin Urena, ED physician, who accepted the patient for transfer to [facility]. There is no ENT coverage at [facility]. [place] has no ENT. [facility] has ENT, Dr. Renteria, but [facility] has no beds if pt were to need admission. [facility] does have a bed available if pt needs admission, so will continue with transfer to [facility]. The patient is agreeable to this plan. - Differential Diagnoses Differential Diagnoses: Allergic Rhinitis, Coagulopathy, Epistaxis - Diagnoses Provider Diagnoses: Epistaxis, Hypertensive urgency, Anticoagulant long-term use Discharge - Sign-Out/Discharge Documenting (check all that apply): Patient Departure - transfer Patient Received Moderate/Deep Sedation with Procedure: No - Discharge Plan Condition: Fair Disposition: TRANS HIGHER LVL OF CARE FAC Patient Education Materials: Nosebleed (ED) Referrals: Franny Odom MD [Primary Care Provider] - Solitario Gayle MD [Medical Doctor] - Additional Instructions: Continue your Eliquis Stop your Flonase Stop Zyrtec get some humidity - Billing Disposition and Condition Condition: FAIR Disposition: Trans Higher Lvl of Care Fac - Attestation Statements Document Initiated by Scribe: Yes Documenting Scribe: Rober Black Provider For Whom Shellieibe is Documenting (Include Credential): Dr. Jasmyn Nava MD Scribe Attestation: IRober, scribed for Dr. Jasmyn Nava MD on 09/21/18 at 2343. Scribe Documentation Reviewed: Yes Provider Attestation: The documentation as recorded by the shellieibRober peña accurately reflects the service I personally performed and the decisions made by me, Dr. Jasmyn Nava MD Status of Scribe Document: Viewed Consult Consult: At 21:[address] Edwin Urena, who accepted the patient for transfer to [facility]. Also discussed care with Dr. Renteria, ENT at [facility], who recommended Afrin, and TXA IV, and then transfer if needed, however [facility] does not have beds if pt were to need admission.
[2018-09-21 17:31] LABS: ABS Basophils 0.1 10^3/ul (0-0.2); ABS Eosinophils 0.2 10^3/ul (0-0.6); ABS Lymphocytes 1.2 10^3/ul (1.0-4.8); ABS Monocytes 0.9 10^3/ul (0-0.8); ABS Neutrophils 4.9 10^3/ul (1.5-7.7); Eosinophil % 2.2 %; Hematocrit 36 % (35-47); Hemoglobin 12.3 g/dL (12.0-16.0); Lymphocyte % 16.5 %; Mean Corpuscular HGB Conc 34 g/dL (31-36); Mean Corpuscular Hemoglobin 29 pg (27-31); Mean Corpuscular Volume 86 fL (80-97); Mean Platelet Volume 7.6 fL (7.4-10.4); Platelet Count 245 10^3/uL (150-450); Red Blood Count 4.19 10^6 /uL (3.70-4.87); Red Cell Distribution Width 13 % (10-15); White Blood Count 7.3 10^3/uL (3.5-10.8)
[2018-09-21 17:51] LABS: Albumin 4.2 g/dL (3.2-5.2); Albumin/Globulin Ratio 1.1 (1-3); BUN/Creatinine Ratio 21.6 (8-20); Calcium 9.7 mg/dL (8.6-10.3); EGFR African American 90.3 (>60); EGFR Non-African American 74.6 (>60); Globulin 3.8 g/dL (2-4); Potassium 4.1 mmol/L (3.5-5.0); Total Bilirubin 0.8 mg/dL (0.2-1.0)
[2018-09-21 17:56] LABS: Activated Partial Thrombo Time 40.8 seconds (26.0-38.0); INR 1.28 (0.82-1.09)
[2018-09-21] MEDS ORDERED: Labetalol IV* 5 MG/ML 20 ML VIAL IV PUSH ONE (19:50)
[2018-09-21 22:29] LABS: Urine Appearance Clear; Urine Bacteria Absent (Absent); Urine Bilirubin Negative (Negative); Urine Blood 1+ (Negative); Urine Color Yellow; Urine Glucose Negative (Negative); Urine Ketones Trace (Negative); Urine Nitrite Negative (Negative); Urine Protein 1+(30 mg/dL) (Negative); Urine Red Blood Cell 2+(6-10/hpf) (Absent); Urine Squamous Epithelial Cell Present (Absent); Urine Urobilinogen Negative (Negative); Urine White Blood Cell Absent (Absent)
[2018-09-21] MEDS ORDERED: Oxymetazoline 0.05% NASAL SPR* 15 ML BTL LEFT NARE ONE (22:52)
[2018-09-21] MEDS ORDERED: Tranexamic Acid 1,000 MG/10 ML 1,000 MG in NS 0.9% 50 ML* 50 ML IV ONE (22:53)
[2018-09-21] MEDS ORDERED: Tranexamic Acid 1,000 MG/10 ML SDV ONE (23:10)
[2018-09-21] MEDS ORDERED: Tranexamic Acid 1,000 MG in NS 0.9% 50 ML IV ONE (23:30)
[2018-09-21 23:45] VITALS: BP 113/77
[2018-09-22] MEDS ORDERED: Ondansetron ODT TAB* 4 MG PO ONE (00:11)
== END 2018-09-22 02:27 | disposition short-term general hospital (02) ==
LOC: ED 15:53
DX: R04.0 Epistaxis (principal); I16.0 Hypertensive urgency; Z79.01 Long term (current) use of anticoagulants; Z87.81 Personal history of (healed) traumatic fracture; R06.02 Shortness of breath; M79.606 Pain in leg, unspecified; R73.03 Prediabetes; Z95.810 Presence of automatic (implantable) cardiac defibrillator; Z96.642 Presence of left artificial hip joint; Z88.5 Allergy status to narcotic agent; Z87.891 Personal history of nicotine dependence
CPT/HCPCS: 30901; 36415; 80053; 81003; 81015; 83605; 83880; 85025; 85610; 85730; 96365; 96375; 99284; A9270-GY

== ENCOUNTER 2018-10-01 14:24 | Emergency (ER) | payer MEDICARE, BC ==
--- NOTE | 2018-10-01 16:40 | ED ---
Throat Pain/Nasal Congestion - HPI Summary HPI Summary: This patient is an 87 year old F presenting to [facility] accompanied by acquaintance with a chief complaint of epistaxis which began at 1300 on 10/01/18 and is still occurring. Pt reports she is on Eliquis. Pt has a PMHx of epistaxis , as she came to [facility] last week for the same issue and was sent to [facility]. She reports that last week when she reached [facility] the epistaxis had ceased. - History of Current Complaint Chief Complaint: EDEpistaxis Time Seen by Provider: 10/01/18 16:19 Hx Obtained From: Patient Onset/Duration: Sudden Onset, Lasting Hours - 1300, Still Present Severity: Mild - 0/10 Cough: None Related History: Other (Noted In Comments) - PMHx of epistaxis - Allergies/Home Medications Allergies/Adverse Reactions: Allergies Allergy/AdvReac Type Severity Reaction Status Date / Time codeine AdvReac Severe Nausea Verified 10/01/18 16:08 PMH/Surg Hx/FS Hx/Imm Hx Endocrine/Hematology History: Reports: Hx Diabetes - BORDERLINE, Hx Thyroid Disease - Hx - no treatment at this time Cardiovascular History: Reports: Hx Coronary Artery Disease, Hx Hypercholesterolemia, Hx Hypertension, Hx Pacemaker/ICD - 10/23/17, Hx Syncope, Other Cardiovascular Problems/Disorders - "slight build up of plaque in carotid artery" Denies: Hx Auto Implanted Cardiovert Defib, Hx Cardiac Arrest, Hx Deep Vein Thrombosis Respiratory History: Reports: Hx Pneumonia GI History: Reports: Other GI Disorders - hx blood in stool, no colonoscopy Musculoskeletal History: Reports: Hx Arthritis - hands and hip, Hx Bursitis - right hip- resolved Denies: Hx Back Problems Sensory History: Reports: Hx Contacts or Glasses Denies: Hx Cataracts - bilateral removal, Hx Hearing Aid, Hx Hearing Problem Opthamlomology History: Reports: Hx Contacts or Glasses Denies: Hx Cataracts - bilateral removal Psychiatric History: Reports: Hx Anxiety - Cancer History Hx Chemotherapy: No - Surgical History Surgery Procedure, Year, and Place: appendectomy. bilateral cataract removal. left hip replacement. Hx Anesthesia Reactions: No Infectious Disease History: No Infectious Disease History: Denies: Traveled Outside the [place] in Last 30 Days - Family History Known Family History: Positive: Cardiac Disease - CHF, Other - cancer Negative: Diabetes - Social History Alcohol Use: Occasionally Hx Substance Use: No Substance Use Type: Reports: None Hx Tobacco Use: No Smoking Status (MU): Former Smoker Type: Cigarettes Have You Smoked in the Last Year: No Review of Systems Negative: Fever Positive: Epistaxis All Other Systems Reviewed And Are Negative: Yes Physical Exam - Summary Physical Exam Summary: Appearance: The patient is well-nourished in no acute distress and in no acute pain. Skin: The skin is warm and dry and skin color reflects adequate perfusion. HEENT: The head is normocephalic and atraumatic. The pupils are equal and reactive. The conjunctivae are clear and without drainage. Nares are patent. Small area of controlled bleeding in kiesselbach plexus on left. Mouth reveals moist mucous membranes and the throat is without erythema and exudate. The external ears are intact. The ear canals are patent and without drainage. The tympanic membranes are intact. Neck: The neck is supple with full range of motion and non-tender. There are no carotid bruits. There is no neck vein distemension. Respiratory: Chest is non-tender. Lungs are clear to auscultation and breath sounds are symmetrical and equal. Cardiovascular: Heart is regular rate and rhythm. There is no murmur or rub auscultated. There is no peripheral edema and pulses are symmetrical and equal. Abdomen: The abdomen is soft and non-tender. There are normal bowel sounds heard in all four quadrants and there is no organomegaly palpated. Musculoskeletal: There is no back tenderness noted. Extremities are non-tender with full range of motion. There is good capillary refill. There is no peripheral edema or calf tenderness elicited. Neurological: Patient is alert and oriented to person, place and time. The patient has symmetrical motor strength in all four extremities. Cranial nerves are grossly intact. Deep tendon reflexes are symmetrical and equal in all four extremities. Psychiatric: The patient has an appropriate affect and does not exhibit any anxiety or depression. Triage Information Reviewed: Yes Vital Signs On Initial Exam: Initial Vitals Temp Pulse Resp BP Pulse Ox 98.5 F 82 16 178/118 96 10/01/18 14:25 10/01/18 14:25 10/01/18 14:25 10/01/18 14:25 10/01/18 14:25 Vital Signs Reviewed: Yes Procedures - Procedure Summary Procedure Summary: The left nasal septum was cauterized with one silver nitrate stick after treatment with 4% lidocaine and 1% vanessa-synephrine. She tolerated it well and the bleeding was controlled. Diagnostics - Vital Signs Vital Signs Temp Pulse Resp BP Pulse Ox 10/01/18 15:51 97.5 F 74 16 126/72 99 10/01/18 14:25 98.5 F 82 16 178/118 96 - Laboratory Lab Statement: Any lab studies that have been ordered have been reviewed, and results considered in the medical decision making process. Re-Evaluation - Re-Evaluation First Eval Re-Evaluation Time: 18:11 Comment: Discussed plan to discharge with patient. Patient is agreeable. EENT Course/Dx - Course Course Of Treatment: Ms. Brown was seen here last week with a nosebleed and is on eliquis. A rhino rocket was used and didn't seem to be working so she was transferred to [facility]. She apparently had stopped by the time she got there so she was observed and discharged. She was given a clip for rebleeding but when I see her, the clip is on her lap and she is holding tissues under her nose which is bleeding a little. I had her use the clip for awhile and then examined her. I saw a small, likely source medially on the left septum. I placed cotton impregnated with neosynephrine 1% and lidocaine 4%. Subsequently , I cauterized with silver nitrate with good result. Initially, since the bleeding had stopped with the clip, I tried to D/C her but she started again with ambulating. She ambulated fine after cautery. - Diagnoses Provider Diagnoses: Anterior epistaxis Discharge - Sign-Out/Discharge Documenting (check all that apply): Patient Departure - Discharge Patient Received Moderate/Deep Sedation with Procedure: No - Discharge Plan Condition: Stable Disposition: HOME Patient Education Materials: Nosebleed (ED) Referrals: Franny Odom MD [Primary Care Provider] - 3 Days Additional Instructions: Follow up with primary care provider within 2-3 days. RETURN TO THE EMERGENCY DEPARTMENT FOR CHANGING OR WORSENING SYMPTOMS. - Billing Disposition and Condition Condition: STABLE Disposition: Home - Attestation Statements Document Initiated by Scribe: Yes Documenting Scribe: Paola Mccarthy Provider For Whom Scribe is Documenting (Include Credential): Dr. Ranjeet Jay MD Scribe Attestation: Paola Gonsalves, scribed for Dr. Ranjeet Jay MD on 10/02/18 at 1502. Scribe Documentation Reviewed: Yes Provider Attestation: The documentation as recorded by the scribePaola accurately reflects the service I personally performed and the decisions made by me, Dr. Ranjeet Jay MD Status of Scribe Document: Viewed
[2018-10-01] MEDS ORDERED: Lidocaine 4% TOPICAL* 50 ML TOP.SOLN TOPICAL ONE (18:57)
[2018-10-01] MEDS ORDERED: Phenylephrine 1% NASAL* 15 ML BOT LEFT NARE ONE (18:57)
[2018-10-01] MEDS ORDERED: Silver Nitrate/Potassium Nitr* 1 EA STICK TOPICAL ONE (20:24)
[2018-10-01 21:37] VITALS: BP 128/71
== END 2018-10-01 21:48 | disposition home or self-care (01) ==
LOC: ED 14:24
DX: R04.0 Epistaxis (principal); E11.9 Type 2 diabetes mellitus without complications; I25.10 Atherosclerotic heart disease of native coronary artery without angina pectoris; I10 Essential (primary) hypertension; Z95.810 Presence of automatic (implantable) cardiac defibrillator; Z87.891 Personal history of nicotine dependence; Z79.01 Long term (current) use of anticoagulants; Z88.5 Allergy status to narcotic agent
CPT/HCPCS: 30901; 99283; A9270-GY

== ENCOUNTER 2020-09-25 07:55 | Inpatient (IN) ==
[2020-09-25] MEDS ORDERED: Pantoprazole VIAL 40 MG VIAL IV ONE (08:10)
[2020-09-25] MEDS ORDERED: Ondansetron 4 mg VIAL 2 MG/ML 2 ml VIAL IV ONE (08:10)
[2020-09-25 08:53] LABS: ABS Eosinophils 0.2 10^3/ul (0-0.6); ABS Lymphocytes 1.6 10^3/ul (1.0-4.8); ABS Monocytes 1.4 10^3/ul (0-0.8); ABS Neutrophils 8.7 10^3/ul (1.5-7.7); Eosinophil % 1.9 %; Hematocrit 27 % (35-47); Hemoglobin 9.1 g/dL (12.0-16.0); Mean Corpuscular HGB Conc 34 g/dL (31-36); Mean Corpuscular Hemoglobin 30 pg (27-31); Mean Corpuscular Volume 89 fL (80-97); Platelet Count 247 10^3/uL (150-450); Red Blood Count 3.01 10^6 /uL (3.70-4.87); Red Cell Distribution Width 14 % (10-15)
[2020-09-25] MEDS ORDERED: Pantoprazole 80 mg in NS BAG 80 MG/250 ML BAG IV ONE (09:00)
[2020-09-25 09:02] LABS: INR 1.47 (0.82-1.09)
[2020-09-25 09:04] LABS: ALT 10 U/L (7-52); Albumin 3.5 g/dL (3.2-5.2); Albumin/Globulin Ratio 1.3 (1-3); Alkaline Phosphatase 52 U/L (35-149); Blood Urea Nitrogen 45 mg/dL (6-24); CO2 Carbon Dioxide 22 mmol/L (22-32); Calcium 8.5 mg/dL (8.6-10.3); Chloride 99 mmol/L (101-111); EGFR Non-African American 81.8 (>60); Globulin 2.8 g/dL (2-4); Glucose 136 mg/dL (70-100); Lipase 38 U/L (11.0-82.0); Sodium 127 mmol/L (135-145); Total Protein 6.3 g/dL (6.4-8.9)
[2020-09-25 09:50] LABS: Anion Gap 6 mmol/L (2-11)
[2020-09-25 10:22] LABS: Magnesium 1.7 mg/dL (1.9-2.7); Potassium Redraw 4.5 mmol/L (3.5-5.0)
[2020-09-25] MEDS ORDERED: Magnesium Sulfate 2 gm BAG 2 GM/50 ML BAG IVPB ONE (10:31)
[2020-09-25 15:20] LABS: Urine Appearance Clear; Urine Bilirubin Negative (Negative); Urine Blood Negative (Negative); Urine Color Straw; Urine Glucose Negative (Negative); Urine Ketones Negative (Negative); Urine Nitrite Negative (Negative); Urine Protein Negative (Negative); Urine Specific Gravity 1.013 (1.002-1.030); Urine Urobilinogen Negative (Negative)
[2020-09-25 15:27] LABS: Urine Amorphous Crystals Present (Absent); Urine Bacteria Absent (Absent); Urine Red Blood Cell Trace(0-2/hpf) (Absent); Urine Squamous Epithelial Cell Present (Absent); Urine White Blood Cell Trace(0-5/hpf) (Absent)
[2020-09-25] MEDS: Ondansetron 4 mg VIAL 2 MG/ML 2 ml VIAL IV PRN (18:09)
[2020-09-26 05:27] LABS: ABS Eosinophils 0.1 10^3/ul (0-0.6); ABS Lymphocytes 3.6 10^3/ul (1.0-4.8); ABS Monocytes 1.3 10^3/ul (0-0.8); ABS Neutrophils 8.7 10^3/ul (1.5-7.7); Eosinophil % 0.7 %; Hematocrit 22 % (35-47); Hemoglobin 7.2 g/dL (12.0-16.0); Lymphocyte % 26.3 %; Mean Corpuscular HGB Conc 33 g/dL (31-36); Mean Corpuscular Hemoglobin 30 pg (27-31); Mean Corpuscular Volume 91 fL (80-97); Mean Platelet Volume 8.1 fL (7.4-10.4); Platelet Count 313 10^3/uL (150-450); Red Blood Count 2.41 10^6 /uL (3.70-4.87); Red Cell Distribution Width 14 % (10-15); White Blood Count 13.6 10^3/uL (3.5-10.8)
[2020-09-26] MEDS: Ondansetron 4 mg VIAL 2 MG/ML 2 ml VIAL IV PRN ×2 (05:29→18:11)
[2020-09-26] MEDS ORDERED: NS 0.9% 1000 ml BAG 1,000 ML IV ONE (05:39)
[2020-09-26 05:50] LABS: Calcium 8.4 mg/dL (8.6-10.3); EGFR African American 61.3 (>60); EGFR Non-African American 50.7 (>60); Potassium 4.1 mmol/L (3.5-5.0)
[2020-09-26] MEDS: Pantoprazole 80 mg in NS BAG 80 MG/250 ML BAG IV SCH ×2 (06:40→17:57)
[2020-09-26] MEDS ORDERED: NS 0.9% 500 ml BAG 500 ML IV ONE (06:45)
[2020-09-26] MEDS ORDERED: Prothrombin Complex Conc. DOSE = Units Factor IX (nine) IV SLOW PU ONE (08:15)
[2020-09-26] MEDS ORDERED: Norepinephrine 16MCG/ML IVPRE 4,000 MCG/250 ML BAG IV SCH (09:00)
[2020-09-26] MEDS ORDERED: Octreotide Acetate 50 MCG in NS 0.9% 50 ML 50 ML IV ONE (09:06)
[2020-09-26] MEDS ORDERED: fentaNYL 100 mcg/2 ml 50 MCG/ML VIAL ONE (09:34)
[2020-09-26] MEDS ORDERED: Midazolam 10 mg/10 ml VIAL 1 mg/ml 10 ml VIAL (10 mg) ONE (09:34)
[2020-09-26] MEDS: cefTRIAXone 1 gm/50 mL NS BAG 1 GM/50 ML BAG IVPB SCH (13:42)
[2020-09-26 15:30] LABS: Hematocrit 35 % (35-47); Hemoglobin 11.7 g/dL (12.0-16.0); Mean Corpuscular HGB Conc 34 g/dL (31-36); Mean Corpuscular Hemoglobin 31 pg (27-31); Mean Corpuscular Volume 90 fL (80-97); Mean Platelet Volume 7.5 fL (7.4-10.4); Platelet Count 224 10^3/uL (150-450); Red Blood Count 3.82 10^6 /uL (3.70-4.87); Red Cell Distribution Width 15 % (10-15); White Blood Count 21.3 10^3/uL (3.5-10.8)
[2020-09-26 16:02] LABS: ABS Lymphocytes 0.8 10^3/ul (1.0-4.8); ABS Monocytes 1.7 10^3/ul (0-0.8); ABS Neutrophils 18.8 10^3/ul (1.5-7.7); Lymphocyte % 3.6 %
[2020-09-26] MEDS ORDERED: Lactated Ringers 1000 ml BAG 1,000 ML IV SCH (17:00)
[2020-09-26 18:43] LABS: Calcium 8.3 mg/dL (8.6-10.3); EGFR African American 65.7 (>60); EGFR Non-African American 54.3 (>60); Magnesium 2.2 mg/dL (1.9-2.7); Phosphorus 2.9 mg/dL (2.5-5.0); Potassium 4.1 mmol/L (3.5-5.0)
[2020-09-26 20:41] LABS: ABS Lymphocytes 1.1 10^3/ul (1.0-4.8); ABS Monocytes 1.4 10^3/ul (0-0.8); ABS Neutrophils 17.4 10^3/ul (1.5-7.7); Hematocrit 34 % (35-47); Hemoglobin 11.4 g/dL (12.0-16.0); Lymphocyte % 5.5 %; Mean Corpuscular HGB Conc 34 g/dL (31-36); Mean Corpuscular Hemoglobin 30 pg (27-31); Mean Corpuscular Volume 90 fL (80-97); Platelet Count 212 10^3/uL (150-450); Red Blood Count 3.75 10^6 /uL (3.70-4.87); Red Cell Distribution Width 15 % (10-15)
[2020-09-27] MEDS: Pantoprazole 80 mg in NS BAG 80 MG/250 ML BAG IV SCH ×2 (04:22→13:37)
[2020-09-27] MEDS ORDERED: Magnesium Hydroxide LIQ 30 ML UDC PO PRN (04:41)
[2020-09-27] MEDS ORDERED: Polyethylene Glycol 3350 17 GM PACKET PO PRN (04:41)
[2020-09-27] MEDS ORDERED: Senna TAB 8.6 mg TAB PO PRN (04:41)
[2020-09-27 06:47] LABS: ABS Lymphocytes 1.4 10^3/ul (1.0-4.8); ABS Monocytes 1.2 10^3/ul (0-0.8); ABS Neutrophils 15.9 10^3/ul (1.5-7.7); Hematocrit 30 % (35-47); Hemoglobin 10.4 g/dL (12.0-16.0); Lymphocyte % 7.8 %; Mean Corpuscular HGB Conc 35 g/dL (31-36); Mean Corpuscular Hemoglobin 31 pg (27-31); Mean Corpuscular Volume 90 fL (80-97); Mean Platelet Volume 7.6 fL (7.4-10.4); Platelet Count 176 10^3/uL (150-450); Red Blood Count 3.34 10^6 /uL (3.70-4.87); Red Cell Distribution Width 15 % (10-15); White Blood Count 18.5 10^3/uL (3.5-10.8)
[2020-09-27 07:04] LABS: Calcium 8.4 mg/dL (8.6-10.3); EGFR African American 66.5 (>60); Magnesium 2.3 mg/dL (1.9-2.7); Phosphorus 2.9 mg/dL (2.5-5.0); Potassium 3.9 mmol/L (3.5-5.0)
[2020-09-27] MEDS: cefTRIAXone 1 gm/50 mL NS BAG 1 GM/50 ML BAG IVPB SCH (13:37)
[2020-09-27 21:23] LABS: Hematocrit 27 % (35-47); Hemoglobin 9.1 g/dL (12.0-16.0)
[2020-09-27] MEDS ORDERED: NS 0.9% 1000 ml BAG 1,000 ML IV ONE (23:39)
[2020-09-28 00:38] LABS: Hematocrit 25 % (35-47); Hemoglobin 8.5 g/dL (12.0-16.0)
[2020-09-28 00:51] LABS: ABS Lymphocytes 1.2 10^3/ul (1.0-4.8); ABS Neutrophils 13.3 10^3/ul (1.5-7.7); Hematocrit 27 % (35-47); Hemoglobin 8.9 g/dL (12.0-16.0); Lymphocyte % 7.9 %; Mean Corpuscular HGB Conc 33 g/dL (31-36); Mean Corpuscular Hemoglobin 31 pg (27-31); Mean Corpuscular Volume 92 fL (80-97); Mean Platelet Volume 8.9 fL (7.4-10.4); Nucleated Red Blood Cells % 0.1; Platelet Count 163 10^3/uL (150-450); Red Blood Count 2.92 10^6 /uL (3.70-4.87); Red Cell Distribution Width 16 % (10-15); White Blood Count 15.6 10^3/uL (3.5-10.8)
[2020-09-28] MEDS ORDERED: Norepinephrine 16MCG/ML IVPRE 4,000 MCG/250 ML BAG IV ONE (01:38)
[2020-09-28] MEDS ORDERED: Norepinephrine 16MCG/ML IVPRE 4,000 MCG/250 ML BAG IV SCH (02:00)
[2020-09-28] MEDS ORDERED: Iohexol 350 (CONTRAST) 500 ML MDV IV ONE (03:00)
[2020-09-28] MEDS: Pantoprazole 80 mg in NS BAG 80 MG/250 ML BAG IV SCH ×3 (04:00→14:43)
[2020-09-28 07:50] LABS: Calcium 8.4 mg/dL (8.6-10.3); EGFR African American 63.5 (>60); EGFR Non-African American 52.4 (>60); Magnesium 2.3 mg/dL (1.9-2.7); Potassium 4.3 mmol/L (3.5-5.0)
[2020-09-28 08:05] LABS: Hematocrit 31 % (35-47); Hemoglobin 10.4 g/dL (12.0-16.0)
[2020-09-28 10:43] LABS: Phosphorus 2.9 mg/dL (2.5-5.0)
[2020-09-28] MEDS ORDERED: Pantoprazole 80 mg in NS BAG 80 MG/250 ML BAG IV SCH (11:00)
[2020-09-28] MEDS: cefTRIAXone 1 gm/50 mL NS BAG 1 GM/50 ML BAG IVPB SCH (11:22)
[2020-09-28 13:56] LABS: Hematocrit 31 % (35-47); Hemoglobin 10.4 g/dL (12.0-16.0)
[2020-09-28 14:15] LABS: PCO2 Arterial 34 mmHg (35-45); PO2 Arterial 171 mmHg (80-100)
[2020-09-29] MEDS: Pantoprazole 80 mg in NS BAG 80 MG/250 ML BAG IV SCH ×2 (02:01→13:02)
[2020-09-29 05:20] LABS: Calcium 8.3 mg/dL (8.6-10.3); EGFR African American 75.5 (>60); EGFR Non-African American 62.4 (>60)
[2020-09-29 09:47] LABS: Hematocrit 30 % (35-47); Hemoglobin 9.8 g/dL (12.0-16.0); Mean Corpuscular HGB Conc 33 g/dL (31-36); Mean Corpuscular Hemoglobin 31 pg (27-31); Mean Corpuscular Volume 93 fL (80-97); Mean Platelet Volume 8.6 fL (7.4-10.4); Platelet Count 137 10^3/uL (150-450); Red Blood Count 3.21 10^6 /uL (3.70-4.87); Red Cell Distribution Width 15 % (10-15); White Blood Count 12.7 10^3/uL (3.5-10.8)
[2020-09-29 09:53] LABS: INR 1.12 (0.86-1.15)
[2020-09-29 10:39] LABS: Magnesium 2.1 mg/dL (1.9-2.7); Phosphorus 1.6 mg/dL (2.5-5.0)
[2020-09-29] MEDS: cefTRIAXone 1 gm/50 mL NS BAG 1 GM/50 ML BAG IVPB SCH (11:21)
[2020-09-29] MEDS ORDERED: NS 0.9% 1000 ml BAG 1,000 ML IV SCH (11:30)
[2020-09-30] MEDS: Pantoprazole 80 mg in NS BAG 80 MG/250 ML BAG IV SCH ×2 (02:39→09:35)
[2020-09-30 06:32] LABS: Hematocrit 28 % (35-47); Hemoglobin 9.7 g/dL (12.0-16.0); Mean Corpuscular HGB Conc 34 g/dL (31-36); Mean Corpuscular Hemoglobin 31 pg (27-31); Mean Corpuscular Volume 91 fL (80-97); Mean Platelet Volume 8.9 fL (7.4-10.4); Platelet Count 159 10^3/uL (150-450); Red Blood Count 3.11 10^6 /uL (3.70-4.87); Red Cell Distribution Width 15 % (10-15); White Blood Count 12.7 10^3/uL (3.5-10.8)
[2020-09-30] MEDS: cefTRIAXone 1 gm/50 mL NS BAG 1 GM/50 ML BAG IVPB SCH (12:11)
[2020-10-01] MEDS: Pantoprazole 80 mg in NS BAG 80 MG/250 ML BAG IV SCH (08:16)
[2020-10-01 11:02] LABS: Hematocrit 36 % (35-47); Hemoglobin 11.5 g/dL (12.0-16.0); Mean Corpuscular HGB Conc 32 g/dL (31-36); Mean Corpuscular Hemoglobin 31 pg (27-31); Mean Corpuscular Volume 95 fL (80-97); Mean Platelet Volume 8.8 fL (7.4-10.4); Platelet Count 209 10^3/uL (150-450); Red Blood Count 3.76 10^6 /uL (3.70-4.87); Red Cell Distribution Width 15 % (10-15); White Blood Count 11.6 10^3/uL (3.5-10.8)
[2020-10-01 11:51] LABS: ABS Eosinophils 0.2 10^3/ul (0-0.6); ABS Lymphocytes 0.9 10^3/ul (1.0-4.8); ABS Monocytes 1.2 10^3/ul (0-0.8); ABS Neutrophils 9.4 10^3/ul (1.5-7.7); Eosinophil % 1.3 %; Lymphocyte % 7.6 %; Nucleated Red Blood Cells % 0.1
[2020-10-01 16:47] LABS: Urine Appearance Cloudy; Urine Bilirubin Negative (Negative); Urine Blood 1+ (Negative); Urine Color Amber; Urine Glucose Negative (Negative); Urine Ketones Negative (Negative); Urine Nitrite Negative (Negative); Urine Protein 1+(30 mg/dL) (Negative); Urine Specific Gravity 1.017 (1.002-1.030); Urine Urobilinogen Negative (Negative)
[2020-10-01 16:50] LABS: Urine Bacteria Absent (Absent); Urine Red Blood Cell Trace(0-2/hpf) (Absent); Urine Squamous Epithelial Cell Present (Absent); Urine White Blood Cell 1+(6-10/hpf) (Absent)
[2020-10-01] MEDS ORDERED: cefTRIAXone 1 gm/50 mL NS BAG 1 GM/50 ML BAG IVPB SCH (18:00)
[2020-10-01] MEDS: Cefepime 2 GM in Dextrose 2 GM/50 ML BAG IV SCH (20:01)
[2020-10-02 06:32] LABS: Hematocrit 27 % (35-47); Hemoglobin 9.3 g/dL (12.0-16.0); Mean Corpuscular HGB Conc 35 g/dL (31-36); Mean Corpuscular Hemoglobin 31 pg (27-31); Mean Corpuscular Volume 91 fL (80-97); Mean Platelet Volume 8.8 fL (7.4-10.4); Platelet Count 225 10^3/uL (150-450); Red Blood Count 2.96 10^6 /uL (3.70-4.87); Red Cell Distribution Width 14 % (10-15); White Blood Count 11.4 10^3/uL (3.5-10.8)
[2020-10-02 06:38] LABS: Albumin 2.7 g/dL (3.2-5.2); Albumin/Globulin Ratio 0.9 (1-3); Calcium 7.9 mg/dL (8.6-10.3); EGFR African American 110.2 (>60); EGFR Non-African American 91.1 (>60); Potassium 3.7 mmol/L (3.5-5.0); Total Bilirubin 0.7 mg/dL (0.2-1.0); Total Protein 5.7 g/dL (6.4-8.9)
[2020-10-02 06:52] LABS: ABS Eosinophils 0.2 10^3/ul (0-0.6); ABS Lymphocytes 1.2 10^3/ul (1.0-4.8); ABS Monocytes 1.6 10^3/ul (0-0.8); ABS Neutrophils 8.4 10^3/ul (1.5-7.7); Eosinophil % 2.1 %; Lymphocyte % 10.2 %; Nucleated Red Blood Cells % 0.2
[2020-10-02 09:05] VITALS: BP 148/73
[2020-10-02] MEDS: Cefepime 2 GM in Dextrose 2 GM/50 ML BAG IV SCH (09:07)
== END 2020-10-02 12:30 | DRG 378 ==
LOC: ED 07:55 → MED 07:55 → ICU 09-26 06:50 → MEDTELE 09-27 00:16 → ICU 09-28 01:42 → MEDTELE 09-28 18:22
PROVIDERS: ADMIT Hospitalist; ATTEND Internal Medicine

== ENCOUNTER 2020-10-07 03:06 | Inpatient (IN) ==
[2020-10-07 04:07] LABS: ABS Eosinophils 0.1 10^3/ul (0-0.6); ABS Lymphocytes 0.9 10^3/ul (1.0-4.8); ABS Monocytes 0.9 10^3/ul (0-0.8); ABS Neutrophils 6.2 10^3/ul (1.5-7.7); Eosinophil % 1.3 %; Hematocrit 28 % (35-47); Hemoglobin 9.3 g/dL (12.0-16.0); Lymphocyte % 10.9 %; Mean Corpuscular HGB Conc 34 g/dL (31-36); Mean Corpuscular Hemoglobin 31 pg (27-31); Mean Corpuscular Volume 91 fL (80-97); Mean Platelet Volume 7.6 fL (7.4-10.4); Platelet Count 421 10^3/uL (150-450); Red Blood Count 3.04 10^6 /uL (3.70-4.87); Red Cell Distribution Width 14 % (10-15); White Blood Count 8.2 10^3/uL (3.5-10.8)
[2020-10-07 04:14] LABS: Activated Partial Thrombo Time 27.3 seconds (26.0-38.0); INR 1.46 (0.86-1.15)
[2020-10-07 04:24] LABS: Albumin 2.9 g/dL (3.2-5.2); Albumin/Globulin Ratio 0.9 (1-3); C Reactive Protein 113.6 mg/L (<8.01); Calcium 8.2 mg/dL (8.6-10.3); EGFR African American 108.2 (>60); EGFR Non-African American 89.4 (>60); Globulin 3.1 g/dL (2-4)
[2020-10-07] MEDS ORDERED: Furosemide 40 mg/4 ml IV VIAL IV ONE (06:17)
[2020-10-07] MEDS ORDERED: Pantoprazole VIAL 40 MG VIAL IV ONE (06:49)
[2020-10-07 08:13] LABS: Hematocrit 29 % (35-47)
[2020-10-07] MEDS: Triamcinolone 0.025% OINT 15 GM TUBE TOPICAL SCH ×2 (13:48→21:49)
[2020-10-07] MEDS ORDERED: Iodixanol (CONTRAST) 320 MG/ML 100 ML SDV IV ONE (13:52)
[2020-10-07] MEDS ORDERED: Perflutren Lipid Microsphere 3 ML VIAL ONE (14:18)
[2020-10-07 18:53] LABS: Urine Appearance Clear; Urine Bilirubin Negative (Negative); Urine Blood 1+ (Negative); Urine Color Yellow; Urine Glucose Negative (Negative); Urine Ketones Negative (Negative); Urine Nitrite Negative (Negative); Urine Protein Negative (Negative); Urine Specific Gravity 1.025 (1.002-1.030); Urine Urobilinogen Negative (Negative)
[2020-10-07 18:54] LABS: Urine Bacteria Absent (Absent); Urine Red Blood Cell 1+(3-5/hpf) (Absent); Urine Squamous Epithelial Cell Present (Absent); Urine White Blood Cell 2+(11-20/hpf) (Absent)
[2020-10-07] MEDS: Pantoprazole VIAL 40 MG VIAL IV SCH (21:49)
[2020-10-07 22:21] LABS: Hematocrit 28 % (35-47); Hemoglobin 9.6 g/dL (12.0-16.0)
[2020-10-08 07:43] LABS: Albumin 2.6 g/dL (3.2-5.2); Calcium 7.7 mg/dL (8.6-10.3); Magnesium 1.6 mg/dL (1.9-2.7); Potassium 3.5 mmol/L (3.5-5.0); Total Bilirubin 1.1 mg/dL (0.2-1.0)
[2020-10-08 07:49] LABS: Albumin/Globulin Ratio 0.9 (1-3); EGFR African American 102.5 (>60); EGFR Non-African American 84.7 (>60); Globulin 2.8 g/dL (2-4); Total Protein 5.4 g/dL (6.4-8.9)
[2020-10-08 07:56] LABS: ABS Basophils 0.1 10^3/ul (0-0.2); ABS Eosinophils 0.1 10^3/ul (0-0.6); ABS Lymphocytes 0.8 10^3/ul (1.0-4.8); ABS Neutrophils 6.5 10^3/ul (1.5-7.7); Eosinophil % 0.6 %; Hematocrit 28 % (35-47); Hemoglobin 9.1 g/dL (12.0-16.0); Mean Corpuscular HGB Conc 33 g/dL (31-36); Mean Corpuscular Hemoglobin 30 pg (27-31); Mean Corpuscular Volume 93 fL (80-97); Mean Platelet Volume 8.8 fL (7.4-10.4); Platelet Count 297 10^3/uL (150-450); Red Blood Count 3.01 10^6 /uL (3.70-4.87); Red Cell Distribution Width 15 % (10-15); White Blood Count 8.4 10^3/uL (3.5-10.8)
[2020-10-08] MEDS: Triamcinolone 0.025% OINT 15 GM TUBE TOPICAL SCH (08:59)
[2020-10-08] MEDS: Pantoprazole VIAL 40 MG VIAL IV SCH ×2 (08:59→21:35)
[2020-10-08] MEDS ORDERED: Magnesium Sulfate IV 3 GM in NS 0.9% 100 ml BAG 100 ML IVPB ONE (09:00)
[2020-10-08] MEDS ORDERED: NS 0.9% 1000 ml BAG 1,000 ML IV ONE (10:27)
[2020-10-08] MEDS ORDERED: NS 0.9% 500 ml BAG 500 ML IV ONE (10:34)
[2020-10-08] MEDS ORDERED: Potassium Chlor 20 meq TAB.ER PO ONE (11:00)
[2020-10-08] MEDS: NS 0.9% 1000 ml BAG 1,000 ML IV SCH (12:38)
[2020-10-08 14:42] LABS: EGFR African American 83.3 (>60); EGFR Non-African American 68.8 (>60); Potassium 3.5 mmol/L (3.5-5.0)
[2020-10-08 15:17] LABS: Hematocrit 30 % (35-47); Hemoglobin 9.9 g/dL (12.0-16.0); Mean Corpuscular HGB Conc 33 g/dL (31-36); Mean Corpuscular Hemoglobin 30 pg (27-31); Mean Corpuscular Volume 91 fL (80-97); Mean Platelet Volume 7.8 fL (7.4-10.4); Platelet Count 473 10^3/uL (150-450); Red Blood Count 3.25 10^6 /uL (3.70-4.87); Red Cell Distribution Width 15 % (10-15); White Blood Count 8.5 10^3/uL (3.5-10.8)
[2020-10-08 23:15] LABS: Hematocrit 31 % (35-47); Hemoglobin 10.4 g/dL (12.0-16.0); Mean Corpuscular HGB Conc 34 g/dL (31-36); Mean Corpuscular Hemoglobin 32 pg (27-31); Mean Corpuscular Volume 94 fL (80-97); Mean Platelet Volume 8.4 fL (7.4-10.4); Platelet Count 398 10^3/uL (150-450); Red Blood Count 3.27 10^6 /uL (3.70-4.87); Red Cell Distribution Width 15 % (10-15); White Blood Count 6.9 10^3/uL (3.5-10.8)
[2020-10-09 00:26] LABS: CO2 Carbon Dioxide 22 mmol/L (22-32); Calcium 7.6 mg/dL (8.6-10.3); Chloride 97 mmol/L (101-111); Sodium 127 mmol/L (135-145)
[2020-10-09 00:27] LABS: Anion Gap 8 mmol/L (2-11)
[2020-10-09 00:31] LABS: Blood Urea Nitrogen 10 mg/dL (6-24); EGFR African American 104.3 (>60); EGFR Non-African American 86.2 (>60); Glucose 111 mg/dL (70-100)
[2020-10-09] MEDS: NS 0.9% 1000 ml BAG 1,000 ML IV SCH (00:45)
[2020-10-09] MEDS: Triamcinolone 0.025% OINT 15 GM TUBE TOPICAL SCH ×2 (02:44→08:33)
[2020-10-09 07:38] LABS: Hematocrit 28 % (35-47); Hemoglobin 9.7 g/dL (12.0-16.0); Mean Corpuscular HGB Conc 35 g/dL (31-36); Mean Corpuscular Hemoglobin 31 pg (27-31); Mean Corpuscular Volume 91 fL (80-97); Mean Platelet Volume 7.6 fL (7.4-10.4); Platelet Count 417 10^3/uL (150-450); Red Blood Count 3.07 10^6 /uL (3.70-4.87); Red Cell Distribution Width 15 % (10-15); White Blood Count 6.9 10^3/uL (3.5-10.8)
[2020-10-09 07:54] LABS: EGFR African American 104.3 (>60); EGFR Non-African American 86.2 (>60); Potassium 3.8 mmol/L (3.5-5.0)
[2020-10-09] MEDS: Pantoprazole VIAL 40 MG VIAL IV SCH (08:33)
[2020-10-09 12:12] VITALS: BP 131/70
== END 2020-10-09 16:00 | disposition home or self-care (01) | DRG 379 ==
LOC: ED 03:06 → MEDTELE 08:35
PROVIDERS: ADMIT Internal Medicine; ATTEND Internal Medicine

== ENCOUNTER 2020-11-24 15:03 | Inpatient (IN) ==
[2020-11-24] MEDS ORDERED: Pantoprazole 80 mg in NS BAG 80 MG/250 ML BAG IV ONE (15:18)
[2020-11-24 15:57] LABS: ABS Basophils 0.1 10^3/ul (0-0.2); ABS Eosinophils 0.3 10^3/ul (0-0.6); ABS Lymphocytes 1.6 10^3/ul (1.0-4.8); ABS Neutrophils 3.1 10^3/ul (1.5-7.7); Eosinophil % 5.5 %; Hematocrit 24 % (35-47); Hemoglobin 8.2 g/dL (12.0-16.0); Lymphocyte % 25.7 %; Mean Corpuscular HGB Conc 34 g/dL (31-36); Mean Corpuscular Hemoglobin 29 pg (27-31); Mean Corpuscular Volume 85 fL (80-97); Mean Platelet Volume 7.2 fL (7.4-10.4); Platelet Count 373 10^3/uL (150-450); Red Blood Count 2.82 10^6 /uL (3.70-4.87); Red Cell Distribution Width 15 % (10-15); White Blood Count 6.1 10^3/uL (3.5-10.8)
[2020-11-24] MEDS ORDERED: Pantoprazole VIAL 40 MG VIAL IV ONE (16:06)
[2020-11-24 16:19] LABS: Troponin I 0.01 ng/mL (<0.03)
[2020-11-24 16:27] LABS: ALT 25 U/L (7-52); AST 25 U/L (13-39); Albumin/Globulin Ratio 0.7 (1-3); Alkaline Phosphatase 77 U/L (35-149); Anion Gap 7 mmol/L (2-11); Blood Urea Nitrogen 12 mg/dL (6-24); CO2 Carbon Dioxide 24 mmol/L (22-32); Calcium 8.4 mg/dL (8.6-10.3); Chloride 95 mmol/L (101-111); EGFR African American 116.7 (>60); EGFR Non-African American 96.4 (>60); Globulin 4.2 g/dL (2-4); Glucose 150 mg/dL (70-100); Potassium 3.9 mmol/L (3.5-5.0); Sodium 126 mmol/L (135-145); Total Protein 7.2 g/dL (6.4-8.9)
[2020-11-24] MEDS ORDERED: Lactated Ringers 500 ml BAG 500 ML IV ONE (17:15)
[2020-11-24 20:10] LABS: Total Iron Binding Capacity 283 mcg/dL (250-450); Transferrin 202 mg/dL (203-362)
[2020-11-24 20:12] LABS: % Iron Saturation 7 % (15-55); Iron < 20 ug/dL (50-212); Unsaturated Iron Binding < 268 ug/dL
[2020-11-24 20:20] LABS: Ferritin 156.6 ng/mL (11-307)
[2020-11-25 05:07] LABS: ABS Basophils 0.1 10^3/ul (0-0.2); ABS Eosinophils 0.4 10^3/ul (0-0.6); ABS Lymphocytes 1.4 10^3/ul (1.0-4.8); ABS Monocytes 0.9 10^3/ul (0-0.8); ABS Neutrophils 3.2 10^3/ul (1.5-7.7); Eosinophil % 5.9 %; Hematocrit 23 % (35-47); Hemoglobin 7.8 g/dL (12.0-16.0); Lymphocyte % 24.3 %; Mean Corpuscular HGB Conc 34 g/dL (31-36); Mean Corpuscular Hemoglobin 29 pg (27-31); Mean Corpuscular Volume 85 fL (80-97); Platelet Count 342 10^3/uL (150-450); Red Blood Count 2.71 10^6 /uL (3.70-4.87); Red Cell Distribution Width 15 % (10-15)
[2020-11-25] MEDS ORDERED: NS 0.9% 1000 ml BAG 1,000 ML IV SCH (08:00)
[2020-11-25 08:56] LABS: Calcium 8.3 mg/dL (8.6-10.3); EGFR Non-African American 122.3 (>60); Potassium 3.8 mmol/L (3.5-5.0)
[2020-11-25] MEDS: Pantoprazole VIAL 40 MG VIAL IV SCH ×2 (09:22→20:51)
[2020-11-25] MEDS: Iron Sucrose 200 MG in NS 0.9% 100 ml BAG 100 ML IVPB SCH (10:20)
[2020-11-26 06:19] LABS: Hematocrit 25 % (35-47); Hemoglobin 8.6 g/dL (12.0-16.0)
[2020-11-26] MEDS: Pantoprazole VIAL 40 MG VIAL IV SCH (08:57)
[2020-11-26] MEDS: Iron Sucrose 200 MG in NS 0.9% 100 ml BAG 100 ML IVPB SCH (08:57)
[2020-11-26 12:19] VITALS: BP 134/61
[2020-11-27 16:38] LABS: Helicobacter pylori Result Not Detected; Specimen Source STOOL
== END 2020-11-26 19:30 | DRG 379 ==
LOC: ED 15:03 → MEDTELE 17:34 → SUATTDRO 17:34
PROVIDERS: ADMIT Internal Medicine; ATTEND Hospitalist